=== PATIENT | female | born 1965 | race African-American/Black ===

== ENCOUNTER 2018-12-10 18:31 | Emergency (ER) | payer MEDICAID ==
[~2018-12-10] VITALS: Ht 165.1 cm; Wt 131.5 kg
[2018-12-10 18:49] VITALS: BP 109/69
[2018-12-10 19:44] LABS: Basophils # (auto) 0 uL; Basophils % (auto) 0.2 % (0.0-2.0); Eosinophils # (auto) 0.2 uL; Mean Corpuscular Volume 78.8 fL (80.0-100.0); Monocytes # (auto) 0.7 uL; Red Blood Cells 5.04 10^6/uL (4.0-5.20)
[2018-12-10 19:46] LABS: Eosinophils % (auto) 1.7 % (0.0-7.0); Hematocrit 39.8 % (36.0-46.0); Lymphocytes # (auto) 3.7 uL; Lymphocytes % (auto) 38.3 % (10.0-50.0); Mean Corpuscular Hemoglobin 25.8 pg (28.0-32.0); Mean Corpuscular Hgb Conc. 32.7 g/dL (32.0-36.0); Monocytes % (auto) 7.7 % (0.0-12.0); Neutrophils % (auto) 52.1 % (37.0-80.0); Nucleated Red Blood Cells % 0.3 %; Platelet Count (auto) 339 10^3/uL (140-450); Red Cell Distribution Width 15.2 % (11.8-14.3); White Blood Cell 9.6 10^3/uL (4.4-10.8)
[2018-12-10 19:58] LABS: Albumin 3.4 g/dL (3.4-5.0); Calcium 9.3 mg/dL (8.5-10.1); Potassium 3.2 mmol/L (3.5-5.1)
[2018-12-10 20:04] LABS: Bilirubin, Total 0.4 mg/dL (0.2-1.0); Total Protein 7.9 g/dL (6.4-8.2)
[2018-12-10] MEDS ORDERED: POTASSIUM CHL 20 Meq TABLET PO ONE (20:15)
== END 2018-12-10 23:47 | disposition left against medical advice (07) ==
LOC: ER 18:37
DX: R60.9 Edema, unspecified (principal); Z53.21 Procedure and treatment not carried out due to patient leaving prior to being seen by health care provider
CPT/HCPCS: 36415; 80053; 85025; 93970

== ENCOUNTER 2020-06-22 15:37 | Inpatient (IN) | payer MEDICAID ==
[~2020-06-22] VITALS: Ht 170.2 cm; Wt 132.9 kg
[2020-06-22] MEDS ORDERED: SODIUM CHLORIDE 0.9% 500 ML IV ONE (17:15)
[2020-06-22 18:34] LABS: Basophils # (auto) 0 10 ^3/uL (0-0.2); Basophils % (auto) 0.6 % (0.0-2.0); Eosinophils # (auto) 0.1 10 ^3/uL (0-0.8); Eosinophils % (auto) 0.9 % (0.0-7.0); Hematocrit 49.5 % (36.0-46.0); Hemoglobin 16.2 g/dL (12.2-16.2); Lymphocytes # (auto) 2.8 10 ^3/uL (0.4-5.4); Lymphocytes % (auto) 33.9 % (10.0-50.0); Mean Corpuscular Hemoglobin 27.1 pg (28.0-32.0); Mean Corpuscular Hgb Conc. 32.8 g/dL (32.0-36.0); Mean Corpuscular Volume 82.6 fL (80.0-100.0); Monocytes # (auto) 0.3 10 ^3/uL (0-1.3); Monocytes % (auto) 3.5 % (0.0-12.0); Neutrophils % (auto) 61.1 % (37.0-80.0); Nucleated Red Blood Cells % 0.2 %; Platelet Count (auto) 229 10^3/uL (140-450); Red Cell Distribution Width 16.8 % (11.8-14.3); White Blood Cell 8.1 10^3/uL (4.4-10.8)
[2020-06-22 18:51] LABS: Calcium 8.4 mg/dL (8.5-10.1)
[2020-06-22 18:56] LABS: BUN/Creatinine Ratio 7.9; Bilirubin, Total 0.5 mg/dL (0.2-1.0); Total Protein 7.9 g/dL (6.4-8.2)
[2020-06-22] MEDS ORDERED: MORPHINE SULF INJ 2 MG/ML SYRINGE 1ML IV PRN (20:00)
[2020-06-22] MEDS ORDERED: NITROGLYCERIN 0.4 MG SL TAB SL PRN (20:00)
[2020-06-22] MEDS ORDERED: DOCUSATE SOD 100 MG CAP PO PRN (20:00)
[2020-06-22] MEDS ORDERED: TEMAZEPAM 15 MG CAP PO PRN (20:00)
[2020-06-22] MEDS ORDERED: AZITHROMYCIN 500MG/ 250ML 250 ML IV ONE (20:15)
[2020-06-22] MEDS ORDERED: hydrALAZINE HCL 20 MG/ML VL IV PRN (20:15)
[2020-06-22] MEDS ORDERED: POTASSIUM CHL 20 Meq TABLET PO ONE (20:15)
[2020-06-22] MEDS ORDERED: HYDROcodone-ACET 5/325MG TAB PO PRN (20:15)
[2020-06-22] MEDS ORDERED: DEXTROSE (50%) 50ML SYRG IV PRN (20:15)
[2020-06-22] MEDS: SODIUM CHLORIDE 0.9% 1,000 ML IV SCH (20:45)
[2020-06-22] MEDS: AZITHROMYCIN 500MG/ 250ML 250 ML IV SCH (20:47)
[2020-06-22] MEDS: ATORVASTATIN 20 MG TAB PO SCH (22:00)
[2020-06-22] MEDS: InsuLIN REG 1unit/0.01ml Soln (100units/ml) SC SCH (22:00)
[2020-06-22] MEDS: ACCU-CHEK COMFORT CURVE STRIP VI SCH (22:00)
[2020-06-23 03:25] VITALS: BP 101/63
[2020-06-23] MEDS ORDERED: FLUT110A INH (05:41)
[2020-06-23] MEDS ORDERED: INSU1INJ19 SC (05:41)
[2020-06-23] MEDS ORDERED: CHOL20007 PO (05:41)
[2020-06-23] MEDS ORDERED: LOSA-69 PO (05:41)
[2020-06-23] MEDS ORDERED: ATOR20TA50 PO (05:41)
[2020-06-23] MEDS ORDERED: BALS750C6 PO (05:41)
[2020-06-23] MEDS ORDERED: GABA300C10 PO (05:41)
[2020-06-23] MEDS ORDERED: TRAM50TA2 PO (05:41)
[2020-06-23] MEDS ORDERED: HYDR25TA4 PO (05:41)
[2020-06-23] MEDS ORDERED: ALBU108A5 IN (05:41)
[2020-06-23] MEDS ORDERED: METO25TA5 PO (05:41)
[2020-06-23] MEDS ORDERED: MONT10TA34 PO (05:41)
[2020-06-23] MEDS: ACCU-CHEK COMFORT CURVE STRIP VI SCH ×4 (06:28→21:46)
[2020-06-23] MEDS: InsuLIN REG 1unit/0.01ml Soln (100units/ml) SC SCH ×4 (06:28→21:46)
[2020-06-23 08:34] LABS: Eosinophils # (auto) 0 10 ^3/uL (0-0.8); Mean Corpuscular Hgb Conc. 32.5 g/dL (32.0-36.0); Monocytes # (auto) 0.4 10 ^3/uL (0-1.3); Nucleated Red Blood Cells % 0.2 %; Red Cell Distribution Width 16.9 % (11.8-14.3); White Blood Cell 8.2 10^3/uL (4.4-10.8)
[2020-06-23 08:36] LABS: Basophils # (auto) 0 10 ^3/uL (0-0.2); Basophils % (auto) 0.5 % (0.0-2.0); Eosinophils % (auto) 0.2 % (0.0-7.0); Hematocrit 43.1 % (36.0-46.0); Lymphocytes # (auto) 2.3 10 ^3/uL (0.4-5.4); Lymphocytes % (auto) 27.9 % (10.0-50.0); Mean Corpuscular Hemoglobin 26.8 pg (28.0-32.0); Mean Corpuscular Volume 82.5 fL (80.0-100.0); Monocytes % (auto) 4.8 % (0.0-12.0); Neutrophils # (auto) 5.4 10 ^3/uL (1.6-8.6); Neutrophils % (auto) 66.6 % (37.0-80.0); Platelet Count (auto) 188 10^3/uL (140-450); Red Blood Cells 5.22 10^6/uL (4.0-5.20)
[2020-06-23 08:56] LABS: Albumin 2.4 g/dL (3.4-5.0); Calcium 7.5 mg/dL (8.5-10.1)
[2020-06-23 09:00] VITALS: BP 90/63
[2020-06-23 09:01] LABS: BUN/Creatinine Ratio 10.3; Bilirubin, Total 0.4 mg/dL (0.2-1.0); Total Protein 6.6 g/dL (6.4-8.2)
[2020-06-23 09:10] LABS: Potassium 2.8 mmol/L (3.5-5.1)
[2020-06-23] MEDS: LOSARTAN POTASSIUM 50 MG TAB PO SCH (10:00)
[2020-06-23] MEDS ORDERED: POTASSIUM CHL 20 Meq TABLET PO ONE (11:45)
[2020-06-23 13:00] VITALS: BP 105/71
[2020-06-23] MEDS ORDERED: POTASSIUM CHLORIDE 40 MEQ, LIDOCAINE 1% (LOCAL ANESTH.) 4 ML in SODIUM CHL 0.9% 250 ML IV ONE (13:00)
[2020-06-23] MEDS: SODIUM CHLORIDE 0.9% 1,000 ML IV SCH (14:06)
[2020-06-23] MEDS: ONDANSETRON HCL 4 MG/2 ML VIAL IV PRN ×2 (14:11→20:30)
[2020-06-23 17:00] VITALS: BP 95/61
[2020-06-23] MEDS: AZITHROMYCIN 500MG/ 250ML 250 ML IV SCH (20:30)
[2020-06-23 20:54] LABS: Urine Bacteria FEW /hpf (None Seen); Urine Blood 1+ /uL (Negative); Urine Hyaline Cast FEW /lpf (0 - 2); Urine Specific Gravity 1.018 (1.001-1.035); Urine WBC 30 /hpf (0 - 5)
[2020-06-23 21:00] VITALS: BP 107/66
[2020-06-23] MEDS: ATORVASTATIN 20 MG TAB PO SCH (21:46)
[2020-06-23] MEDS: ENOXAPARIN SOD 40 MG/0.4 ML SYRINGE SC SCH (21:46)
[2020-06-24] MEDS: ACCU-CHEK COMFORT CURVE STRIP VI SCH ×4 (06:52→21:56)
[2020-06-24] MEDS: InsuLIN REG 1unit/0.01ml Soln (100units/ml) SC SCH ×4 (06:55→21:56)
[2020-06-24 07:46] LABS: Basophils # (auto) 0 10 ^3/uL (0-0.2); Basophils % (auto) 0.2 % (0.0-2.0); Eosinophils # (auto) 0 10 ^3/uL (0-0.8); Eosinophils % (auto) 0.2 % (0.0-7.0); Hematocrit 42.1 % (36.0-46.0); Hemoglobin 13.8 g/dL (12.2-16.2); Lymphocytes # (auto) 2.6 10 ^3/uL (0.4-5.4); Lymphocytes % (auto) 26.5 % (10.0-50.0); Mean Corpuscular Hgb Conc. 32.8 g/dL (32.0-36.0); Mean Corpuscular Volume 82.3 fL (80.0-100.0); Monocytes # (auto) 0.5 10 ^3/uL (0-1.3); Monocytes % (auto) 5.2 % (0.0-12.0); Neutrophils # (auto) 6.8 10 ^3/uL (1.6-8.6); Neutrophils % (auto) 67.9 % (37.0-80.0); Nucleated Red Blood Cells % 0.3 %; Platelet Count (auto) 194 10^3/uL (140-450); Red Blood Cells 5.12 10^6/uL (4.0-5.20); Red Cell Distribution Width 17.5 % (11.8-14.3)
[2020-06-24 07:58] LABS: Magnesium 1.9 mg/dL (1.6-2.6)
[2020-06-24] MEDS ORDERED: ASPirin 325 MG TAB PO ONE (08:00)
[2020-06-24 08:08] LABS: Albumin 2.3 g/dL (3.4-5.0); BUN/Creatinine Ratio 11.7; Bilirubin, Total 0.5 mg/dL (0.2-1.0); CRP High Sensitivity 6.79 mg/dL (< 0.3); Calcium 7.7 mg/dL (8.5-10.1); Phosphorus 1.6 mg/dL (2.5-4.90)
[2020-06-24 08:19] LABS: Potassium 2.9 mmol/L (3.5-5.1)
[2020-06-24] MEDS ORDERED: ONDANSETRON HCL 4 MG/2 ML VIAL ONE (08:47)
[2020-06-24] MEDS: ONDANSETRON HCL 4 MG/2 ML VIAL IV PRN (08:55)
[2020-06-24 09:00] VITALS: BP 100/63
[2020-06-24] MEDS ORDERED: ENOXAPARIN SOD 40 MG/0.4 ML SYRINGE SC SCH (10:00)
[2020-06-24] MEDS: CHOLECALCIFEROL (VITD3) 2,000 UNIT CAP PO SCH ×2 (10:00→11:28)
[2020-06-24] MEDS: ASCORBIC ACID 500 MG TAB PO SCH ×2 (10:00→11:27)
[2020-06-24] MEDS: POTASSIUM CHL 20MEQ/100ML 100 ML IV SCH ×4 (11:15→20:49)
[2020-06-24] MEDS: ENOXAPARIN SOD 40 MG/0.4 ML SYRINGE SC SCH ×2 (11:27→22:00)
[2020-06-24] MEDS: PANTOPRAZOLE 40 MG TAB PO SCH (11:28)
[2020-06-24] MEDS: ZINC SULFATE 220mg CAP or TAB PO SCH (11:28)
[2020-06-24] MEDS: MAGNESIUM SULFATE 1GM/100ML 100 ML IV SCH ×2 (11:29→17:20)
[2020-06-24] MEDS: LOSARTAN POTASSIUM 50 MG TAB PO SCH (11:30)
[2020-06-24] MEDS: ALPRAZolam 0.5 MG TAB PO PRN (11:38)
[2020-06-24 13:00] VITALS: BP 104/57
[2020-06-24] MEDS ORDERED: POTASSIUM PHOSPHATE 26.4 MEQ in SODIUM CHL 0.9% 100 ML IV ONE ×2 (14:15→21:30)
[2020-06-24] MEDS ORDERED: MAGNESIUM SULFATE 1GM/100ML 100 ML IV SCH (16:15)
[2020-06-24 17:00] VITALS: BP 93/63
[2020-06-24 22:00] VITALS: BP 103/59
[2020-06-24] MEDS: ATORVASTATIN 20 MG TAB PO SCH (22:00)
[2020-06-24] MEDS: AZITHROMYCIN 500MG/ 250ML 250 ML IV SCH (22:12)
[2020-06-25] MEDS: POTASSIUM CHL 20MEQ/100ML 100 ML IV SCH ×3 (01:17→12:31)
[2020-06-25] MEDS: InsuLIN REG 1unit/0.01ml Soln (100units/ml) SC SCH ×4 (06:10→21:53)
[2020-06-25] MEDS: ACCU-CHEK COMFORT CURVE STRIP VI SCH ×4 (06:11→21:54)
[2020-06-25 06:23] VITALS: BP 107/53
[2020-06-25 08:00] VITALS: BP 102/64
[2020-06-25 08:23] LABS: Basophils # (auto) 0 10 ^3/uL (0-0.2); Basophils % (auto) 0.2 % (0.0-2.0); Eosinophils # (auto) 0 10 ^3/uL (0-0.8); Hematocrit 39.4 % (36.0-46.0); Lymphocytes # (auto) 1.9 10 ^3/uL (0.4-5.4); Lymphocytes % (auto) 17.9 % (10.0-50.0); Monocytes # (auto) 0.5 10 ^3/uL (0-1.3); Monocytes % (auto) 4.4 % (0.0-12.0); Neutrophils % (auto) 77.5 % (37.0-80.0); Nucleated Red Blood Cells % 0.1 %; Platelet Count (auto) 190 10^3/uL (140-450); Red Blood Cells 4.81 10^6/uL (4.0-5.20); Red Cell Distribution Width 16.8 % (11.8-14.3); White Blood Cell 10.4 10^3/uL (4.4-10.8)
[2020-06-25 09:05] LABS: Potassium 3.2 mmol/L (3.5-5.1)
[2020-06-25] MEDS: ZINC SULFATE 220mg CAP or TAB PO SCH (09:52)
[2020-06-25] MEDS: ASPirin 81 mg TAB PO SCH (09:52)
[2020-06-25] MEDS: PANTOPRAZOLE 40 MG TAB PO SCH (09:53)
[2020-06-25] MEDS: LOSARTAN POTASSIUM 50 MG TAB PO SCH (09:53)
[2020-06-25] MEDS: CHOLECALCIFEROL (VITD3) 2,000 UNIT CAP PO SCH (09:56)
[2020-06-25] MEDS: ASCORBIC ACID 500 MG TAB PO SCH (09:56)
[2020-06-25 10:00] LABS: Albumin 2.1 g/dL (3.4-5.0); BUN/Creatinine Ratio 12.4; Bilirubin, Total 0.5 mg/dL (0.2-1.0); Calcium 7.4 mg/dL (8.5-10.1); Magnesium 2.2 mg/dL (1.6-2.6); Phosphorus 2.2 mg/dL (2.5-4.90); Total Protein 5.6 g/dL (6.4-8.2)
[2020-06-25 10:01] LABS: CRP High Sensitivity 10.5 mg/dL (< 0.3)
[2020-06-25] MEDS: ENOXAPARIN SOD 40 MG/0.4 ML SYRINGE SC SCH ×2 (10:17→22:49)
[2020-06-25 12:00] VITALS: BP 102/54
[2020-06-25] MEDS ORDERED: POTASSIUM PHOSPHATE 22 MEQ in SODIUM CHL 0.9% 100 ML IV ONE (15:45)
[2020-06-25 17:00] VITALS: BP 102/63
[2020-06-25] MEDS: BUDESONIDE (INHALATION) 180 MCG IH IN SCH (22:00)
[2020-06-25] MEDS: MESALAMINE 400mg Delayed Release Cap PO SCH (22:00)
[2020-06-25] MEDS: ATORVASTATIN 20 MG TAB PO SCH (22:00)
[2020-06-25 22:05] VITALS: BP 95/56
[2020-06-25] MEDS ORDERED: FUROSEMIDE 40 MG/4 ML VIAL ONE (22:10)
[2020-06-25] MEDS: AZITHROMYCIN 500MG/ 250ML 250 ML IV SCH (22:47)
[2020-06-25] MEDS: FUROSEMIDE 40 MG/4 ML VIAL IV SCH (22:48)
[2020-06-26] MEDS: ACETAMINOPHEN 325 MG TAB PO PRN (04:20)
[2020-06-26 05:00] VITALS: BP 99/62
[2020-06-26] MEDS: MESALAMINE 400mg Delayed Release Cap PO SCH ×4 (06:13→22:44)
[2020-06-26] MEDS: InsuLIN REG 1unit/0.01ml Soln (100units/ml) SC SCH ×4 (06:17→22:58)
[2020-06-26] MEDS: ACCU-CHEK COMFORT CURVE STRIP VI SCH ×4 (06:32→22:00)
[2020-06-26 07:05] LABS: Basophils # (auto) 0 10 ^3/uL (0-0.2); Basophils % (auto) 0.3 % (0.0-2.0); Eosinophils # (auto) 0 10 ^3/uL (0-0.8); Eosinophils % (auto) 0.1 % (0.0-7.0); Hemoglobin 12.6 g/dL (12.2-16.2); Lymphocytes # (auto) 1.7 10 ^3/uL (0.4-5.4); Mean Corpuscular Hemoglobin 26.7 pg (28.0-32.0)
[2020-06-26 07:09] LABS: Hematocrit 38.8 % (36.0-46.0); Lymphocytes % (auto) 16.4 % (10.0-50.0); Mean Corpuscular Hgb Conc. 32.5 g/dL (32.0-36.0); Monocytes # (auto) 0.4 10 ^3/uL (0-1.3); Monocytes % (auto) 3.6 % (0.0-12.0); Neutrophils # (auto) 8.1 10 ^3/uL (1.6-8.6); Neutrophils % (auto) 79.6 % (37.0-80.0); Nucleated Red Blood Cells % 0.2 %; Platelet Count (auto) 211 10^3/uL (140-450); Red Blood Cells 4.73 10^6/uL (4.0-5.20); Red Cell Distribution Width 17.1 % (11.8-14.3); White Blood Cell 10.2 10^3/uL (4.4-10.8)
[2020-06-26] MEDS: BUDESONIDE (INHALATION) 180 MCG IH IN SCH ×2 (07:13→18:30)
[2020-06-26 07:34] LABS: Potassium 3.7 mmol/L (3.5-5.1)
[2020-06-26 07:41] LABS: Albumin 1.9 g/dL (3.4-5.0); BUN/Creatinine Ratio 13.3; Bilirubin, Total 0.5 mg/dL (0.2-1.0); Calcium 7.3 mg/dL (8.5-10.1); Magnesium 2.2 mg/dL (1.6-2.6); Total Protein 5.7 g/dL (6.4-8.2)
[2020-06-26 09:00] VITALS: BP 98/64
[2020-06-26] MEDS: ZINC SULFATE 220mg CAP or TAB PO SCH (09:28)
[2020-06-26] MEDS: CHOLECALCIFEROL (VITD3) 2,000 UNIT CAP PO SCH (09:28)
[2020-06-26] MEDS: FUROSEMIDE 40 MG/4 ML VIAL IV SCH (09:28)
[2020-06-26] MEDS: ASCORBIC ACID 500 MG TAB PO SCH (09:28)
[2020-06-26] MEDS: PANTOPRAZOLE 40 MG TAB PO SCH (09:28)
[2020-06-26] MEDS: ASPirin 81 mg TAB PO SCH (09:28)
[2020-06-26] MEDS: ENOXAPARIN SOD 40 MG/0.4 ML SYRINGE SC SCH (09:29)
[2020-06-26] MEDS: LOSARTAN POTASSIUM 50 MG TAB PO SCH (10:00)
[2020-06-26] MEDS ORDERED: ENOXAPARIN SOD 100 MG/1 ML SYRINGE SC ONE (12:00)
[2020-06-26 13:00] VITALS: BP 99/57
[2020-06-26] MEDS: ALBUTEROL SULF HFA 90MCG INH 200DOSE IN PRN (15:47)
[2020-06-26 17:00] VITALS: BP 101/52
[2020-06-26] MEDS ORDERED: DexAMETHasone SOD PHOS 10MG/1ML VIAL INJ IV ONE (17:00)
[2020-06-26] MEDS ORDERED: REMDESIVIR PER PHARMACY 0 ML IV SCH (17:15)
[2020-06-26] MEDS ORDERED: REMDESIVIR 200 MG in NS 210ml LOADING DOSE ADULT IV ONE (20:00)
[2020-06-26 22:00] VITALS: BP 115/87
[2020-06-26] MEDS ORDERED: ENOXAPARIN SOD 150 MG/1 ML SYRINGE SC SCH (22:00)
[2020-06-26] MEDS: AZITHROMYCIN 500MG/ 250ML 250 ML IV SCH (22:44)
[2020-06-26] MEDS: ATORVASTATIN 20 MG TAB PO SCH (22:44)
[2020-06-27] MEDS: ALBUTEROL SULF HFA 90MCG INH 200DOSE IN PRN ×3 (01:03→20:20)
[2020-06-27 05:00] VITALS: BP 97/51
[2020-06-27] MEDS: MESALAMINE 400mg Delayed Release Cap PO SCH ×3 (06:00→21:36)
[2020-06-27] MEDS: ACCU-CHEK COMFORT CURVE STRIP VI SCH ×5 (06:40→21:36)
[2020-06-27] MEDS: InsuLIN REG 1unit/0.01ml Soln (100units/ml) SC SCH ×4 (06:45→22:19)
[2020-06-27 07:19] LABS: Basophils # (auto) 0 10 ^3/uL (0-0.2); Basophils % (auto) 0.1 % (0.0-2.0); Eosinophils # (auto) 0 10 ^3/uL (0-0.8); Hemoglobin 13.1 g/dL (12.2-16.2); Lymphocytes # (auto) 1.2 10 ^3/uL (0.4-5.4); Mean Corpuscular Volume 82.7 fL (80.0-100.0); Monocytes # (auto) 0.6 10 ^3/uL (0-1.3); Monocytes % (auto) 4.4 % (0.0-12.0); Red Cell Distribution Width 17.1 % (11.8-14.3)
[2020-06-27 07:21] LABS: Hematocrit 40.9 % (36.0-46.0); Lymphocytes % (auto) 8.3 % (10.0-50.0); Mean Corpuscular Hemoglobin 26.5 pg (28.0-32.0); Neutrophils # (auto) 12.5 10 ^3/uL (1.6-8.6); Neutrophils % (auto) 87.2 % (37.0-80.0); Platelet Count (auto) 293 10^3/uL (140-450); Red Blood Cells 4.95 10^6/uL (4.0-5.20); White Blood Cell 14.3 10^3/uL (4.4-10.8)
[2020-06-27 07:34] LABS: Albumin 1.8 g/dL (3.4-5.0); Anion Gap 11 (5-15); Blood Urea Nitrogen 23 mg/dL (7-18); Calcium 7.7 mg/dL (8.5-10.1); Carbon Dioxide 19 mmol/L (21-32); Chloride 106 mmol/L (98-107); Glucose 217 mg/dL (74-106); Potassium 3.7 mmol/L (3.5-5.1); Sodium 136 mmol/L (136-145)
[2020-06-27 07:44] LABS: Alanine Aminotransferase 16 U/L (13-56); Alkaline Phosphatase 73 U/L (45-117); Aspartate Aminotransferase 38 U/L (15-37); Bilirubin, Total 0.4 mg/dL (0.2-1.0); GFR African American 49 mL/min; GFR Non-African American 40 mL/min
[2020-06-27 07:48] LABS: CRP High Sensitivity > 19 mg/dL (< 0.3)
[2020-06-27 08:00] VITALS: BP 103/64
[2020-06-27] MEDS: BUDESONIDE (INHALATION) 180 MCG IH IN SCH ×2 (08:01→22:24)
[2020-06-27] MEDS: LOSARTAN POTASSIUM 50 MG TAB PO SCH (10:00)
[2020-06-27] MEDS: ZINC SULFATE 220mg CAP or TAB PO SCH (10:00)
[2020-06-27] MEDS: DexAMETHasone SOD PHOS 10MG/1ML VIAL INJ IV SCH (11:00)
[2020-06-27] MEDS: PANTOPRAZOLE 40 MG TAB PO SCH (11:01)
[2020-06-27] MEDS: ASPirin 81 mg TAB PO SCH (11:01)
[2020-06-27] MEDS: ASCORBIC ACID 500 MG TAB PO SCH (11:01)
[2020-06-27] MEDS: FUROSEMIDE 40 MG/4 ML VIAL IV SCH (11:01)
[2020-06-27] MEDS: CHOLECALCIFEROL (VITD3) 2,000 UNIT CAP PO SCH (11:01)
[2020-06-27] MEDS: ENOXAPARIN SOD 100 MG/1 ML SYRINGE SC SCH ×2 (11:03→21:36)
[2020-06-27 12:00] VITALS: BP 96/73
[2020-06-27] MEDS: cefTRIAXone 1GM/50ML D5W 50 ML IV SCH (13:14)
[2020-06-27] MEDS: REMDESIVIR 100 MG in SODIUM CHL 0.9% 250 ML IV SCH (15:06)
[2020-06-27 17:00] VITALS: BP_SYST 116; BP_SYST 201; BP_DIAS 65; BP_DIAS 91
[2020-06-27] MEDS ORDERED: DIPHENOXYLATE W/ATROPINE 2.5 MG TAB PO PRN (17:30)
[2020-06-27] MEDS: AZITHROMYCIN 500MG/ 250ML 250 ML IV SCH (21:35)
[2020-06-27] MEDS: ATORVASTATIN 20 MG TAB PO SCH (21:36)
[2020-06-27 22:00] VITALS: BP 122/84
[2020-06-28] VITALS (9 sets, daily range): BP systolic 103–124; BP diastolic 59–97
[2020-06-28] MEDS ORDERED: dilTIAZem 25 MG/5 ML VIAL IV ONE ×2 (01:26→01:30)
[2020-06-28] MEDS ORDERED: AMIODARONE HCL 150 MG in D5W 5% 100 ML IV ONE (02:30)
[2020-06-28] MEDS ORDERED: AMIODARONE HCL (50 MG/ ML) 3 ML VIAL IV ONE (02:44)
[2020-06-28] MEDS ORDERED: AMIODARONE 450mg/250ml AE 250 ML IV SCH (02:45)
[2020-06-28] MEDS: MESALAMINE 400mg Delayed Release Cap PO SCH ×3 (06:00→23:08)
[2020-06-28 06:23] LABS: Basophils # (auto) 0 10 ^3/uL (0-0.2); Eosinophils # (auto) 0 10 ^3/uL (0-0.8); Monocytes # (auto) 1.2 10 ^3/uL (0-1.3); Monocytes % (auto) 7.9 % (0.0-12.0); Nucleated Red Blood Cells % 0.1 %
[2020-06-28 06:29] LABS: Lymphocytes # (auto) 1.6 10 ^3/uL (0.4-5.4); Lymphocytes % (auto) 10.4 % (10.0-50.0); Mean Corpuscular Hemoglobin 26.7 pg (28.0-32.0); Mean Corpuscular Hgb Conc. 32.6 g/dL (32.0-36.0); Mean Corpuscular Volume 81.8 fL (80.0-100.0); Neutrophils # (auto) 12.9 10 ^3/uL (1.6-8.6); Neutrophils % (auto) 81.7 % (37.0-80.0); Platelet Count (auto) 379 10^3/uL (140-450); Red Blood Cells 4.89 10^6/uL (4.0-5.20); Red Cell Distribution Width 17.3 % (11.8-14.3); White Blood Cell 15.8 10^3/uL (4.4-10.8)
[2020-06-28 06:36] LABS: Potassium 3.5 mmol/L (3.5-5.1)
[2020-06-28] MEDS: ALBUTEROL SULF HFA 90MCG INH 200DOSE IN PRN ×2 (06:39→20:46)
[2020-06-28] MEDS: BUDESONIDE (INHALATION) 180 MCG IH IN SCH ×2 (06:39→20:46)
[2020-06-28] MEDS: InsuLIN REG 1unit/0.01ml Soln (100units/ml) SC SCH ×4 (06:45→21:45)
[2020-06-28 06:51] LABS: Albumin 1.8 g/dL (3.4-5.0); BUN/Creatinine Ratio 23.1; Bilirubin, Total 0.4 mg/dL (0.2-1.0); Calcium 8.1 mg/dL (8.5-10.1); Total Protein 5.9 g/dL (6.4-8.2)
[2020-06-28] MEDS ORDERED: METOPROLOL TARTRATE 1MG/1ML-5ML VIAL IV ONE ×2 (08:15→09:30)
[2020-06-28] MEDS: cefTRIAXone 1GM/50ML D5W 50 ML IV SCH (09:00)
[2020-06-28] MEDS ORDERED: POTASSIUM CHL 20 Meq TABLET PO ONE (09:30)
[2020-06-28] MEDS: ASPirin 81 mg TAB PO SCH (09:35)
[2020-06-28] MEDS: PANTOPRAZOLE 40 MG TAB PO SCH (09:37)
[2020-06-28] MEDS: LOSARTAN POTASSIUM 50 MG TAB PO SCH (09:37)
[2020-06-28] MEDS: ASCORBIC ACID 500 MG TAB PO SCH (10:00)
[2020-06-28] MEDS: DexAMETHasone SOD PHOS 10MG/1ML VIAL INJ IV SCH (10:00)
[2020-06-28] MEDS: ENOXAPARIN SOD 150 MG/1 ML SYRINGE SC SCH ×2 (10:00→21:42)
[2020-06-28] MEDS: CHOLECALCIFEROL (VITD3) 2,000 UNIT CAP PO SCH (10:00)
[2020-06-28] MEDS: FUROSEMIDE 40 MG/4 ML VIAL IV SCH (10:00)
[2020-06-28] MEDS: ZINC SULFATE 220mg CAP or TAB PO SCH (10:00)
[2020-06-28] MEDS: CHOLESTYRAMINE 4 GM POWDER GT SCH (11:00)
[2020-06-28] MEDS: ACCU-CHEK COMFORT CURVE STRIP VI SCH ×3 (11:30→22:06)
[2020-06-28] MEDS ORDERED: DIGOXIN (250MCG/ML) 2 ML AMPULE ONE (11:41)
[2020-06-28] MEDS ORDERED: AMIODARONE 450mg/250ml AE 250 ML IV ONE (11:55)
[2020-06-28] MEDS: REMDESIVIR 100 MG in SODIUM CHL 0.9% 250 ML IV SCH (18:12)
[2020-06-28] MEDS ORDERED: DIGOXIN (250MCG/ML) 2 ML AMPULE IV ONE (18:15)
[2020-06-28] MEDS: METOPROLOL TARTRATE 25 MG TAB PO SCH ×2 (18:29→21:41)
[2020-06-28] MEDS: AZITHROMYCIN 500MG/ 250ML 250 ML IV SCH (20:43)
[2020-06-28] MEDS: ATORVASTATIN 20 MG TAB PO SCH (21:41)
[2020-06-29] MEDS ORDERED: DIGOXIN (250MCG/ML) 2 ML AMPULE IV ONE
[2020-06-29 00:22] VITALS: BP 109/50
[2020-06-29 02:12] VITALS: BP 111/80
[2020-06-29 05:00] VITALS: BP 126/93
[2020-06-29] MEDS: InsuLIN REG 1unit/0.01ml Soln (100units/ml) SC SCH ×4 (06:19→21:26)
[2020-06-29] MEDS: MESALAMINE 400mg Delayed Release Cap PO SCH ×3 (06:29→21:29)
[2020-06-29] MEDS: METOPROLOL TARTRATE 25 MG TAB PO SCH (06:30)
[2020-06-29] MEDS: ACCU-CHEK COMFORT CURVE STRIP VI SCH ×4 (06:30→21:29)
[2020-06-29] MEDS: ALBUTEROL SULF HFA 90MCG INH 200DOSE IN PRN ×2 (06:46→20:51)
[2020-06-29] MEDS: BUDESONIDE (INHALATION) 180 MCG IH IN SCH ×2 (06:46→20:51)
[2020-06-29 07:15] LABS: Basophils # (auto) 0 10 ^3/uL (0-0.2); Eosinophils # (auto) 0 10 ^3/uL (0-0.8); Lymphocytes # (auto) 1.2 10 ^3/uL (0.4-5.4); Mean Corpuscular Hemoglobin 26.8 pg (28.0-32.0); Monocytes # (auto) 1.2 10 ^3/uL (0-1.3); Nucleated Red Blood Cells % 0.1 %
[2020-06-29 07:18] LABS: Basophils % (auto) 0.1 % (0.0-2.0); Hematocrit 37.5 % (36.0-46.0); Hemoglobin 12.2 g/dL (12.2-16.2); Lymphocytes % (auto) 8.5 % (10.0-50.0); Mean Corpuscular Hgb Conc. 32.6 g/dL (32.0-36.0); Mean Corpuscular Volume 82.3 fL (80.0-100.0); Monocytes % (auto) 8.9 % (0.0-12.0); Neutrophils # (auto) 11.4 10 ^3/uL (1.6-8.6); Neutrophils % (auto) 82.5 % (37.0-80.0); Platelet Count (auto) 399 10^3/uL (140-450); Red Blood Cells 4.56 10^6/uL (4.0-5.20); Red Cell Distribution Width 16.6 % (11.8-14.3); White Blood Cell 13.8 10^3/uL (4.4-10.8)
[2020-06-29 07:22] LABS: Calcium 8.1 mg/dL (8.5-10.1); Potassium 3.8 mmol/L (3.5-5.1)
[2020-06-29 07:26] LABS: BUN/Creatinine Ratio 25.5; Bilirubin, Total 0.4 mg/dL (0.2-1.0); Phosphorus 2.9 mg/dL (2.5-4.90)
[2020-06-29] MEDS: METOPROLOL TARTRATE 50 MG TAB PO SCH ×3 (14:22→21:24)
[2020-06-29] MEDS: cefTRIAXone 1GM/50ML D5W 50 ML IV SCH (14:23)
[2020-06-29] MEDS: ASPirin 81 mg TAB PO SCH (14:24)
[2020-06-29] MEDS: DexAMETHasone SOD PHOS 10MG/1ML VIAL INJ IV SCH (14:24)
[2020-06-29] MEDS: ZINC SULFATE 220mg CAP or TAB PO SCH (14:25)
[2020-06-29] MEDS: LOSARTAN POTASSIUM 50 MG TAB PO SCH (14:26)
[2020-06-29] MEDS: DIGOXIN 0.125 MG TAB PO SCH (14:27)
[2020-06-29] MEDS: CHOLECALCIFEROL (VITD3) 2,000 UNIT CAP PO SCH (14:28)
[2020-06-29] MEDS: CHOLESTYRAMINE 4 GM POWDER GT SCH (14:28)
[2020-06-29] MEDS: ENOXAPARIN SOD 150 MG/1 ML SYRINGE SC SCH ×2 (14:28→21:29)
[2020-06-29] MEDS: ASCORBIC ACID 500 MG TAB PO SCH (14:28)
[2020-06-29] MEDS: PANTOPRAZOLE 40 MG TAB PO SCH (14:36)
[2020-06-29] MEDS: FUROSEMIDE 40 MG/4 ML VIAL IV SCH (15:16)
[2020-06-29] MEDS: REMDESIVIR 100 MG in SODIUM CHL 0.9% 250 ML IV SCH (18:18)
[2020-06-29] MEDS: ALPRAZolam 0.5 MG TAB PO PRN (21:23)
[2020-06-29] MEDS: AZITHROMYCIN 500MG/ 250ML 250 ML IV SCH (21:27)
[2020-06-29] MEDS: ATORVASTATIN 20 MG TAB PO SCH (21:29)
[2020-06-29 22:00] VITALS: BP 97/46
[2020-06-30 05:00] VITALS: BP 91/68
[2020-06-30] MEDS: MESALAMINE 400mg Delayed Release Cap PO SCH ×3 (06:00→21:46)
[2020-06-30 06:04] LABS: Basophils # (auto) 0 10 ^3/uL (0-0.2); Basophils % (auto) 0.1 % (0.0-2.0); Eosinophils # (auto) 0 10 ^3/uL (0-0.8); Lymphocytes # (auto) 1.1 10 ^3/uL (0.4-5.4); White Blood Cell 12.6 10^3/uL (4.4-10.8)
[2020-06-30 06:07] LABS: Hematocrit 40.4 % (36.0-46.0); Hemoglobin 13.2 g/dL (12.2-16.2); Mean Corpuscular Hemoglobin 26.9 pg (28.0-32.0); Mean Corpuscular Hgb Conc. 32.7 g/dL (32.0-36.0); Mean Corpuscular Volume 82.2 fL (80.0-100.0); Monocytes # (auto) 1.3 10 ^3/uL (0-1.3); Monocytes % (auto) 10.1 % (0.0-12.0); Neutrophils # (auto) 10.2 10 ^3/uL (1.6-8.6); Neutrophils % (auto) 80.8 % (37.0-80.0); Nucleated Red Blood Cells % 0.2 %; Platelet Count (auto) 463 10^3/uL (140-450); Red Blood Cells 4.92 10^6/uL (4.0-5.20); Red Cell Distribution Width 16.9 % (11.8-14.3)
[2020-06-30] MEDS: ACCU-CHEK COMFORT CURVE STRIP VI SCH ×4 (06:24→21:57)
[2020-06-30 06:28] LABS: Potassium 3.5 mmol/L (3.5-5.1)
[2020-06-30] MEDS: InsuLIN REG 1unit/0.01ml Soln (100units/ml) SC SCH ×4 (06:39→22:05)
[2020-06-30] MEDS: METOPROLOL TARTRATE 50 MG TAB PO SCH ×3 (06:41→21:58)
[2020-06-30 06:45] LABS: Albumin 2.2 g/dL (3.4-5.0); BUN/Creatinine Ratio 26.8; Bilirubin, Total 0.4 mg/dL (0.2-1.0); CRP High Sensitivity 2.58 mg/dL (< 0.3); Calcium 8.3 mg/dL (8.5-10.1); Total Protein 6.2 g/dL (6.4-8.2)
[2020-06-30 08:23] VITALS: BP 100/101
[2020-06-30] MEDS: BUDESONIDE (INHALATION) 180 MCG IH IN SCH (08:55)
[2020-06-30] MEDS: ALBUTEROL SULF HFA 90MCG INH 200DOSE IN PRN (08:55)
[2020-06-30] MEDS ORDERED: AMIODARONE 450mg/250ml AE 250 ML IV SCH ×3 (09:45→20:00)
[2020-06-30] MEDS ORDERED: POTASSIUM CHL 20 Meq TABLET PO ONE (09:45)
[2020-06-30] MEDS: cefTRIAXone 1GM/50ML D5W 50 ML IV SCH (09:53)
[2020-06-30] MEDS: ASPirin 81 mg TAB PO SCH (09:53)
[2020-06-30] MEDS: ZINC SULFATE 220mg CAP or TAB PO SCH (09:54)
[2020-06-30] MEDS: FUROSEMIDE 40 MG/4 ML VIAL IV SCH (10:00)
[2020-06-30] MEDS: LOSARTAN POTASSIUM 50 MG TAB PO SCH (10:00)
[2020-06-30] MEDS: DexAMETHasone SOD PHOS 10MG/1ML VIAL INJ IV SCH (10:14)
[2020-06-30] MEDS: DIGOXIN 0.125 MG TAB PO SCH (10:15)
[2020-06-30] MEDS: PANTOPRAZOLE 40 MG TAB PO SCH (10:16)
[2020-06-30] MEDS: CHOLECALCIFEROL (VITD3) 2,000 UNIT CAP PO SCH (10:16)
[2020-06-30] MEDS: ENOXAPARIN SOD 150 MG/1 ML SYRINGE SC SCH ×2 (10:16→21:58)
[2020-06-30] MEDS: ASCORBIC ACID 500 MG TAB PO SCH (10:16)
[2020-06-30] MEDS: CHOLESTYRAMINE 4 GM POWDER GT SCH (11:00)
[2020-06-30 12:30] VITALS: BP 99/71
[2020-06-30] MEDS: ACETAMINOPHEN 325 MG TAB PO PRN (14:27)
[2020-06-30] MEDS ORDERED: BISMUTH SUBSALICYLATE 262MG/15ml ORAL Susp PO PRN (17:15)
[2020-06-30] MEDS: REMDESIVIR 100 MG in SODIUM CHL 0.9% 250 ML IV SCH (18:15)
[2020-06-30 20:00] VITALS: BP 106/80
[2020-06-30] MEDS: AZITHROMYCIN 500MG/ 250ML 250 ML IV SCH (21:46)
[2020-06-30] MEDS: ATORVASTATIN 20 MG TAB PO SCH (21:58)
[2020-06-30 22:00] VITALS: BP 110/65
[2020-07-01] MEDS: ALBUTEROL SULF HFA 90MCG INH 200DOSE IN PRN ×4 (00:20→19:33)
[2020-07-01] MEDS: BUDESONIDE (INHALATION) 180 MCG IH IN SCH ×4 (00:20→19:33)
[2020-07-01 05:14] VITALS: BP 119/80
[2020-07-01] MEDS: MESALAMINE 400mg Delayed Release Cap PO SCH ×4 (06:00→22:00)
[2020-07-01] MEDS: METOPROLOL TARTRATE 50 MG TAB PO SCH ×3 (06:26→21:57)
[2020-07-01] MEDS: ACCU-CHEK COMFORT CURVE STRIP VI SCH ×4 (06:27→21:56)
[2020-07-01] MEDS: InsuLIN REG 1unit/0.01ml Soln (100units/ml) SC SCH ×4 (06:31→22:00)
[2020-07-01 09:00] VITALS: BP 110/71
[2020-07-01 10:23] LABS: Hemoglobin 12.6 g/dL (12.2-16.2); Red Cell Distribution Width 16.5 % (11.8-14.3)
[2020-07-01 10:26] LABS: Hematocrit 38.7 % (36.0-46.0); Mean Corpuscular Hemoglobin 26.8 pg (28.0-32.0); Mean Corpuscular Hgb Conc. 32.5 g/dL (32.0-36.0); Mean Corpuscular Volume 82.5 fL (80.0-100.0); Platelet Count (auto) 485 10^3/uL (140-450); Red Blood Cells 4.69 10^6/uL (4.0-5.20); White Blood Cell 11.9 10^3/uL (4.4-10.8)
[2020-07-01] MEDS: cefTRIAXone 1GM/50ML D5W 50 ML IV SCH (10:27)
[2020-07-01] MEDS: ZINC SULFATE 220mg CAP or TAB PO SCH (10:28)
[2020-07-01] MEDS: ASPirin 81 mg TAB PO SCH (10:28)
[2020-07-01] MEDS: DexAMETHasone SOD PHOS 10MG/1ML VIAL INJ IV SCH (10:28)
[2020-07-01] MEDS: FUROSEMIDE 40 MG/4 ML VIAL IV SCH (10:28)
[2020-07-01] MEDS: DIGOXIN 0.125 MG TAB PO SCH (10:29)
[2020-07-01] MEDS: LOSARTAN POTASSIUM 50 MG TAB PO SCH (10:29)
[2020-07-01] MEDS: CHOLESTYRAMINE 4 GM POWDER GT SCH (10:30)
[2020-07-01] MEDS: PANTOPRAZOLE 40 MG TAB PO SCH (10:30)
[2020-07-01] MEDS: ASCORBIC ACID 500 MG TAB PO SCH (10:30)
[2020-07-01] MEDS: CHOLECALCIFEROL (VITD3) 2,000 UNIT CAP PO SCH (10:30)
[2020-07-01] MEDS: ENOXAPARIN SOD 150 MG/1 ML SYRINGE SC SCH ×2 (10:30→21:56)
[2020-07-01] MEDS: ALPRAZolam 0.5 MG TAB PO PRN (10:31)
[2020-07-01] MEDS: AMIODARONE HCL 200 MG TAB PO SCH ×2 (10:31→21:57)
[2020-07-01 10:39] LABS: Calcium 8.5 mg/dL (8.5-10.1); Potassium 3.7 mmol/L (3.5-5.1)
[2020-07-01 10:44] LABS: Albumin 2.3 g/dL (3.4-5.0); BUN/Creatinine Ratio 24.8; Bilirubin, Total 0.5 mg/dL (0.2-1.0); Total Protein 6.3 g/dL (6.4-8.2)
[2020-07-01 11:19] LABS: Basophils % (manual) 0 (0.0-2.0); Blast Cells 0; Eosinophils % (manual) 0 (0-7); Metamyelocytes % 0; Promyelocytes % 0
[2020-07-01 12:40] LABS: Band Neutrophils % (manual) 2; Lymphocytes % (manual) 16 (10.0-50.0); Monocytes % (manual) 1 (0-12); Myelocytes % 1; Reactive Lymphocytes 1
[2020-07-01 13:00] VITALS: BP 92/54
[2020-07-01 17:00] VITALS: BP 89/67
[2020-07-01] MEDS: ATORVASTATIN 20 MG TAB PO SCH (21:56)
[2020-07-01 22:00] VITALS: BP 114/67
[2020-07-02 05:00] VITALS: BP 103/74
[2020-07-02] MEDS: MESALAMINE 400mg Delayed Release Cap PO SCH ×3 (05:31→22:00)
[2020-07-02] MEDS: ACCU-CHEK COMFORT CURVE STRIP VI SCH ×4 (07:09→22:07)
[2020-07-02] MEDS: InsuLIN REG 1unit/0.01ml Soln (100units/ml) SC SCH ×4 (07:10→22:59)
[2020-07-02] MEDS: ALBUTEROL SULF HFA 90MCG INH 200DOSE IN PRN ×2 (07:28→19:41)
[2020-07-02] MEDS: BUDESONIDE (INHALATION) 180 MCG IH IN SCH ×2 (07:28→19:39)
[2020-07-02 09:00] VITALS: BP 105/68
[2020-07-02] MEDS ORDERED: AZITHROMYCIN 250 MG TAB PO SCH (10:00)
[2020-07-02] MEDS: LOSARTAN POTASSIUM 50 MG TAB PO SCH (10:00)
[2020-07-02] MEDS: FUROSEMIDE 40 MG/4 ML VIAL IV SCH (10:00)
[2020-07-02] MEDS: cefTRIAXone 1GM/50ML D5W 50 ML IV SCH (10:35)
[2020-07-02] MEDS: DexAMETHasone SOD PHOS 10MG/1ML VIAL INJ IV SCH (10:35)
[2020-07-02] MEDS: ASPirin 81 mg TAB PO SCH (10:35)
[2020-07-02] MEDS: AMIODARONE HCL 200 MG TAB PO SCH ×2 (10:36→22:00)
[2020-07-02] MEDS: ZINC SULFATE 220mg CAP or TAB PO SCH (10:36)
[2020-07-02] MEDS: PANTOPRAZOLE 40 MG TAB PO SCH (10:37)
[2020-07-02] MEDS: ASCORBIC ACID 500 MG TAB PO SCH (10:37)
[2020-07-02] MEDS: METOPROLOL TARTRATE 25 MG TAB PO SCH ×2 (10:37→22:00)
[2020-07-02] MEDS: ENOXAPARIN SOD 150 MG/1 ML SYRINGE SC SCH ×2 (10:38→22:07)
[2020-07-02] MEDS: CHOLECALCIFEROL (VITD3) 2,000 UNIT CAP PO SCH (10:38)
[2020-07-02] MEDS: DOXYCYCLINE 100MG/250ML 250 ML IV SCH ×3 (11:13→22:06)
[2020-07-02] MEDS: CHOLESTYRAMINE 4 GM POWDER GT SCH (11:13)
[2020-07-02 13:00] VITALS: BP 100/60
[2020-07-02 17:00] VITALS: BP 120/66
[2020-07-02 20:00] VITALS: BP 137/73
[2020-07-02 22:00] VITALS: BP 137/73
[2020-07-02] MEDS: ATORVASTATIN 20 MG TAB PO SCH (22:06)
[2020-07-03] VITALS (7 sets, daily range): BP systolic 94–111; BP diastolic 55–73
[2020-07-03] MEDS: MESALAMINE 400mg Delayed Release Cap PO SCH ×4 (05:20→22:41)
[2020-07-03] MEDS: ACCU-CHEK COMFORT CURVE STRIP VI SCH ×4 (06:44→22:00)
[2020-07-03] MEDS: InsuLIN REG 1unit/0.01ml Soln (100units/ml) SC SCH ×4 (06:52→23:14)
[2020-07-03] MEDS: PANTOPRAZOLE 40 MG TAB PO SCH (09:31)
[2020-07-03] MEDS: ASCORBIC ACID 500 MG TAB PO SCH (09:31)
[2020-07-03] MEDS: ZINC SULFATE 220mg CAP or TAB PO SCH (09:31)
[2020-07-03] MEDS: AMIODARONE HCL 200 MG TAB PO SCH ×2 (09:31→22:40)
[2020-07-03] MEDS: ASPirin 81 mg TAB PO SCH (09:31)
[2020-07-03] MEDS: LOSARTAN POTASSIUM 50 MG TAB PO SCH (09:32)
[2020-07-03] MEDS: METOPROLOL TARTRATE 25 MG TAB PO SCH ×2 (09:32→22:00)
[2020-07-03] MEDS: ENOXAPARIN SOD 150 MG/1 ML SYRINGE SC SCH ×2 (09:33→22:41)
[2020-07-03] MEDS: DexAMETHasone SOD PHOS 10MG/1ML VIAL INJ IV SCH (09:33)
[2020-07-03] MEDS: FUROSEMIDE 40 MG/4 ML VIAL IV SCH (09:33)
[2020-07-03] MEDS: cefTRIAXone 1GM/50ML D5W 50 ML IV SCH (09:51)
[2020-07-03] MEDS: DOXYCYCLINE 100MG/250ML 250 ML IV SCH ×2 (09:52→22:40)
[2020-07-03] MEDS: CHOLECALCIFEROL (VITD3) 2,000 UNIT CAP PO SCH (10:00)
[2020-07-03] MEDS: BUDESONIDE (INHALATION) 180 MCG IH IN SCH ×2 (10:00→19:36)
[2020-07-03] MEDS: CHOLESTYRAMINE 4 GM POWDER GT SCH (11:47)
[2020-07-03] MEDS: ALBUTEROL SULF HFA 90MCG INH 200DOSE IN PRN ×2 (15:18→19:36)
[2020-07-03] MEDS ORDERED: InsuLIN REG 1unit/0.01ml Soln (100units/ml) IV ONE (17:45)
[2020-07-03] MEDS: ATORVASTATIN 20 MG TAB PO SCH (22:40)
[2020-07-04 05:00] VITALS: BP 107/68
[2020-07-04] MEDS: MESALAMINE 400mg Delayed Release Cap PO SCH ×3 (06:00→22:00)
[2020-07-04 06:23] LABS: Basophils # (auto) 0 10 ^3/uL (0-0.2); Eosinophils # (auto) 0 10 ^3/uL (0-0.8); Lymphocytes # (auto) 1.6 10 ^3/uL (0.4-5.4); Mean Corpuscular Volume 82.8 fL (80.0-100.0); Neutrophils # (auto) 8.9 10 ^3/uL (1.6-8.6); Nucleated Red Blood Cells % 0.1 %; White Blood Cell 11.5 10^3/uL (4.4-10.8)
[2020-07-04 06:25] LABS: Basophils % (auto) 0.2 % (0.0-2.0); Eosinophils % (auto) 0.4 % (0.0-7.0); Hematocrit 38.6 % (36.0-46.0); Hemoglobin 12.1 g/dL (12.2-16.2); Lymphocytes % (auto) 13.7 % (10.0-50.0); Mean Corpuscular Hgb Conc. 31.4 g/dL (32.0-36.0); Monocytes # (auto) 0.9 10 ^3/uL (0-1.3); Monocytes % (auto) 8.2 % (0.0-12.0); Neutrophils % (auto) 77.5 % (37.0-80.0); Platelet Count (auto) 442 10^3/uL (140-450); Red Blood Cells 4.66 10^6/uL (4.0-5.20); Red Cell Distribution Width 16.5 % (11.8-14.3)
[2020-07-04] MEDS: ALBUTEROL SULF HFA 90MCG INH 200DOSE IN PRN ×2 (06:25→21:15)
[2020-07-04] MEDS: BUDESONIDE (INHALATION) 180 MCG IH IN SCH ×2 (06:25→21:15)
[2020-07-04] MEDS: ACCU-CHEK COMFORT CURVE STRIP VI SCH ×4 (06:35→22:09)
[2020-07-04] MEDS: InsuLIN REG 1unit/0.01ml Soln (100units/ml) SC SCH ×3 (06:38→17:00)
[2020-07-04 07:14] LABS: Albumin 2.3 g/dL (3.4-5.0); BUN/Creatinine Ratio 23.8; Bilirubin, Total 0.5 mg/dL (0.2-1.0); CRP High Sensitivity 1.05 mg/dL (< 0.3); Calcium 8.7 mg/dL (8.5-10.1)
[2020-07-04 08:00] VITALS: BP 96/60
[2020-07-04 08:10] LABS: Potassium 2.9 mmol/L (3.5-5.1)
[2020-07-04] MEDS: cefTRIAXone 1GM/50ML D5W 50 ML IV SCH (09:16)
[2020-07-04 09:51] LABS: Magnesium 2.3 mg/dL (1.6-2.6); Phosphorus 2.9 mg/dL (2.5-4.90)
[2020-07-04] MEDS: LOSARTAN POTASSIUM 50 MG TAB PO SCH (10:00)
[2020-07-04] MEDS: METOPROLOL TARTRATE 25 MG TAB PO SCH ×2 (10:00→21:55)
[2020-07-04 12:00] VITALS: BP 112/62
[2020-07-04] MEDS: DexAMETHasone SOD PHOS 10MG/1ML VIAL INJ IV SCH (15:10)
[2020-07-04] MEDS: DOXYCYCLINE 100MG/250ML 250 ML IV SCH (15:11)
[2020-07-04] MEDS: FUROSEMIDE 40 MG/4 ML VIAL IV SCH (15:11)
[2020-07-04] MEDS: ZINC SULFATE 220mg CAP or TAB PO SCH (15:12)
[2020-07-04] MEDS: PANTOPRAZOLE 40 MG TAB PO SCH (15:12)
[2020-07-04] MEDS: AMIODARONE HCL 200 MG TAB PO SCH (15:12)
[2020-07-04] MEDS: ASCORBIC ACID 500 MG TAB PO SCH (15:12)
[2020-07-04] MEDS: ASPirin 81 mg TAB PO SCH (15:12)
[2020-07-04] MEDS: CHOLECALCIFEROL (VITD3) 2,000 UNIT CAP PO SCH (15:12)
[2020-07-04] MEDS: CHOLESTYRAMINE 4 GM POWDER GT SCH (15:13)
[2020-07-04] MEDS: ENOXAPARIN SOD 150 MG/1 ML SYRINGE SC SCH (15:13)
[2020-07-04 17:00] VITALS: BP 111/69
[2020-07-04] MEDS ORDERED: POTASSIUM CHL 20MEQ/100ML 300 ML IV ONE (21:26)
[2020-07-04] MEDS: POTASSIUM CHL 20MEQ/100ML 100 ML IV SCH (21:36)
[2020-07-04] MEDS: ATORVASTATIN 20 MG TAB PO SCH (21:54)
[2020-07-04] MEDS: APIXABAN 5 MG TAB PO SCH (21:55)
[2020-07-04 22:00] VITALS: BP 112/74
[2020-07-04] MEDS ORDERED: AMIODARONE HCL 200 MG TAB PO SCH (22:00)
[2020-07-05] MEDS: POTASSIUM CHL 20MEQ/100ML 100 ML IV SCH ×2 (01:18→04:56)
[2020-07-05] MEDS: DOXYCYCLINE 100MG/250ML 250 ML IV SCH ×2 (01:32→09:01)
[2020-07-05] MEDS: guaiFENesin-DM 100/10mg/5ml SYR PO PRN ×2 (03:26→08:59)
[2020-07-05] MEDS: MESALAMINE 400mg Delayed Release Cap PO SCH ×2 (06:00→14:35)
[2020-07-05] MEDS: ACCU-CHEK COMFORT CURVE STRIP VI SCH ×3 (06:58→17:25)
[2020-07-05] MEDS: InsuLIN REG 1unit/0.01ml Soln (100units/ml) SC SCH ×3 (07:01→17:26)
[2020-07-05 07:36] LABS: Basophils # (auto) 0.1 10 ^3/uL (0-0.2); Basophils % (auto) 0.7 % (0.0-2.0); Hemoglobin 11.7 g/dL (12.2-16.2); Lymphocytes # (auto) 1.6 10 ^3/uL (0.4-5.4)
[2020-07-05 07:37] LABS: Eosinophils # (auto) 0.1 10 ^3/uL (0-0.8); Hematocrit 35.8 % (36.0-46.0); Lymphocytes % (auto) 13.8 % (10.0-50.0); Mean Corpuscular Hemoglobin 26.9 pg (28.0-32.0); Mean Corpuscular Hgb Conc. 32.7 g/dL (32.0-36.0); Mean Corpuscular Volume 82.2 fL (80.0-100.0); Monocytes # (auto) 0.9 10 ^3/uL (0-1.3); Monocytes % (auto) 7.7 % (0.0-12.0); Neutrophils # (auto) 9.2 10 ^3/uL (1.6-8.6); Neutrophils % (auto) 76.8 % (37.0-80.0); Nucleated Red Blood Cells % 0.3 %; Platelet Count (auto) 391 10^3/uL (140-450); Red Blood Cells 4.35 10^6/uL (4.0-5.20); Red Cell Distribution Width 16.2 % (11.8-14.3); White Blood Cell 11.9 10^3/uL (4.4-10.8)
[2020-07-05 08:11] LABS: Potassium 3.6 mmol/L (3.5-5.1)
[2020-07-05 08:18] LABS: Albumin 2.2 g/dL (3.4-5.0); BUN/Creatinine Ratio 23.5; Bilirubin, Total 0.7 mg/dL (0.2-1.0); Calcium 8.3 mg/dL (8.5-10.1)
[2020-07-05 08:40] VITALS: BP 115/72
[2020-07-05] MEDS: cefTRIAXone 1GM/50ML D5W 50 ML IV SCH (08:58)
[2020-07-05] MEDS: APIXABAN 5 MG TAB PO SCH (08:59)
[2020-07-05] MEDS: ZINC SULFATE 220mg CAP or TAB PO SCH (08:59)
[2020-07-05] MEDS: ASPirin 81 mg TAB PO SCH (08:59)
[2020-07-05] MEDS: PANTOPRAZOLE 40 MG TAB PO SCH (08:59)
[2020-07-05 09:00] VITALS: BP 115/72
[2020-07-05] MEDS: ASCORBIC ACID 500 MG TAB PO SCH (09:00)
[2020-07-05] MEDS: LOSARTAN POTASSIUM 50 MG TAB PO SCH (09:00)
[2020-07-05] MEDS: METOPROLOL TARTRATE 25 MG TAB PO SCH (09:00)
[2020-07-05] MEDS: FUROSEMIDE 40 MG/4 ML VIAL IV SCH (09:01)
[2020-07-05] MEDS: DexAMETHasone SOD PHOS 10MG/1ML VIAL INJ IV SCH (09:01)
[2020-07-05] MEDS: CHOLECALCIFEROL (VITD3) 2,000 UNIT CAP PO SCH (09:01)
[2020-07-05] MEDS: ACETAMINOPHEN 325 MG TAB PO PRN (09:23)
[2020-07-05] MEDS ORDERED: CHOLESTYRAMINE 4 GM POWDER PO SCH (11:00)
[2020-07-05 12:00] VITALS: BP 134/67
[2020-07-05] MEDS: BUDESONIDE (INHALATION) 180 MCG IH IN SCH (12:57)
[2020-07-05] MEDS: ALBUTEROL SULF HFA 90MCG INH 200DOSE IN PRN (14:52)
[2020-07-05 16:40] VITALS: BP 115/59
[2020-07-05 17:00] VITALS: BP 137/77
== END 2020-07-05 18:15 | DRG 137 ==
LOC: ER 15:37 → EDBD 15:37 → OVERFLOW 15:38 → TELE-CENTR 06-23 03:23 → TELE-WESTW 06-28 18:11
PROVIDERS: ADMIT Nurse Practitioner; ATTEND Nurse Practitioner
PROC: 05HB33Z Insertion of Infusion Device into Right Basilic Vein, Percutaneous Approach (ICD-10-PCS; principal; 2020-06-22)
PROC: XW033E5 Introduction of Remdesivir Anti-infective into Peripheral Vein, Percutaneous Approach, New Technology Group 5 (ICD-10-PCS; 2020-06-27)
PROC: XW13325 Transfusion of Convalescent Plasma (Nonautologous) into Peripheral Vein, Percutaneous Approach, New Technology Group 5 (ICD-10-PCS; 2020-06-29)
PROC: B54MZZA Ultrasonography of Right Upper Extremity Veins, Guidance (ICD-10-PCS; 2020-06-29)
DX: U07.1 COVID-19 (principal); J12.89 Other viral pneumonia; E66.01 Morbid (severe) obesity due to excess calories; K51.90 Ulcerative colitis, unspecified, without complications; E44.1 Mild protein-calorie malnutrition; E11.40 Type 2 diabetes mellitus with diabetic neuropathy, unspecified; I48.20 Chronic atrial fibrillation, unspecified; E11.22 Type 2 diabetes mellitus with diabetic chronic kidney disease; Z68.41 Body mass index [BMI] 40.0-44.9, adult; R06.03 Acute respiratory distress; I12.9 Hypertensive chronic kidney disease with stage 1 through stage 4 chronic kidney disease, or unspecified chronic kidney disease; N18.9 Chronic kidney disease, unspecified; E78.5 Hyperlipidemia, unspecified; E87.6 Hypokalemia; K59.00 Constipation, unspecified; R19.7 Diarrhea, unspecified; R32 Unspecified urinary incontinence; N39.0 Urinary tract infection, site not specified; Z79.01 Long term (current) use of anticoagulants; Z80.49 Family history of malignant neoplasm of other genital organs; Z82.3 Family history of stroke; Z82.49 Family history of ischemic heart disease and other diseases of the circulatory system; Z83.3 Family history of diabetes mellitus
CPT/HCPCS: 36415; 36600; 71045; 71250; 80053; 80061; 81001; 82728; 82805; 82962; 83036; 83615; 83735; 83880; 84100; 84443; 84484; 85007; 85025; 85027; 85379; 86141; 86850; 86900; 86901; 87426; 87493; 93005; 93306; 93886; 93970; 94640; 97116; 97163; 97530; G0378; J0696; J1100; J1815; J2001; J2405; J3480; J3490; J7060

== ENCOUNTER 2020-07-12 22:21 | Inpatient (IN) | payer MEDICAID ==
[~2020-07-12] VITALS: Ht 167.6 cm; Wt 120.6 kg
[~2020-07-12 22:21] MED LIST: ALBU108A5 IN; ATOR20TA50 PO; BALS750C6 PO; CHOL20007 PO; FLUT110A INH; GABA300C10 PO; HYDR25TA4 PO; INSU1INJ19 SC; LOSA-69 PO; METO25TA5 PO; MONT10TA34 PO; TRAM50TA2 PO
[2020-07-13] MEDS ORDERED: DexAMETHasone SOD PHOS 10MG/1ML VIAL INJ IV ONE (00:30)
[2020-07-13] MEDS ORDERED: AZITHROMYCIN 500MG/ 250ML 250 ML IV ONE (00:30)
[2020-07-13 00:41] LABS: Hematocrit 38.1 % (36.0-46.0); Hemoglobin 12.4 g/dL (12.2-16.2); Mean Corpuscular Hemoglobin 27.5 pg (28.0-32.0); Mean Corpuscular Hgb Conc. 32.6 g/dL (32.0-36.0); Mean Corpuscular Volume 84.3 fL (80.0-100.0); Platelet Count (auto) 382 10^3/uL (140-450); Red Blood Cells 4.52 10^6/uL (4.0-5.20)
[2020-07-13 00:45] LABS: Band Neutrophils % (manual) 0; Basophils % (manual) 0 (0.0-2.0); Blast Cells 0; Eosinophils % (manual) 0 (0-7); Metamyelocytes % 0; Myelocytes % 0; Promyelocytes % 0; Reactive Lymphocytes 0
[2020-07-13 01:04] LABS: Albumin 2.1 g/dL (3.4-5.0); BUN/Creatinine Ratio 8.3; Calcium 9.1 mg/dL (8.5-10.1); Potassium 4.3 mmol/L (3.5-5.1)
[2020-07-13 01:06] LABS: Lactic Acid w/Reflex 4.4 mmol/L (0.4-2.0)
[2020-07-13 01:15] LABS: Bilirubin, Total 1.1 mg/dL (0.2-1.0); Total Protein 7.6 g/dL (6.4-8.2)
[2020-07-13 02:18] VITALS: BP 111/80
[2020-07-13 02:51] LABS: INR 1.24 (0.9-1.15); Partial Thromboplastin Time 27.1 sec (23.0-31.2)
[2020-07-13] MEDS ORDERED: ENOXAPARIN SOD 100 MG/1 ML SYRINGE SC ONE (03:45)
[2020-07-13] MEDS ORDERED: MORPHINE SULF INJ 2 MG/ML SYRINGE 1ML IV PRN (03:45)
[2020-07-13] MEDS ORDERED: ONDANSETRON HCL 4 MG/2 ML VIAL IV ONE (03:45)
[2020-07-13] MEDS ORDERED: NITROGLYCERIN 0.4 MG SL TAB SL PRN (03:45)
[2020-07-13] MEDS ORDERED: MORPHINE SULF INJ 2 MG/ML SYRINGE 1ML IV ONE (03:45)
[2020-07-13] MEDS ORDERED: ALBUTEROL SULF HFA 90MCG INH 200DOSE IN SCH (03:45)
[2020-07-13] MEDS ORDERED: traMADol HCL 50 MG TAB PO PRN (03:45)
[2020-07-13 04:07] LABS: Lymphocytes % (manual) 12 (10.0-50.0); Monocytes % (manual) 3 (0-12)
[2020-07-13] MEDS: PIPERACILLIN-TAZOB 3.375GM 100 ML IV SCH ×2 (06:51→13:12)
[2020-07-13 06:57] VITALS: BP 118/90
[2020-07-13 07:16] LABS: Hematocrit 36.2 % (36.0-46.0); Hemoglobin 11.7 g/dL (12.2-16.2); Mean Corpuscular Hemoglobin 27.5 pg (28.0-32.0); Mean Corpuscular Hgb Conc. 32.3 g/dL (32.0-36.0); Platelet Count (auto) 351 10^3/uL (140-450); Red Blood Cells 4.26 10^6/uL (4.0-5.20); Red Cell Distribution Width 17.2 % (11.8-14.3); White Blood Cell 26.1 10^3/uL (4.4-10.8)
[2020-07-13 07:28] LABS: Basophils % (manual) 0 (0.0-2.0); Blast Cells 0; Eosinophils % (manual) 0 (0-7); Metamyelocytes % 0; Myelocytes % 0; Promyelocytes % 0; Reactive Lymphocytes 0
[2020-07-13 08:16] LABS: Band Neutrophils % (manual) 3; Lymphocytes % (manual) 2 (10.0-50.0); Monocytes % (manual) 1 (0-12)
[2020-07-13] MEDS: MORPHINE SULF INJ 2 MG/ML SYRINGE 1ML IV PRN (08:18)
[2020-07-13] MEDS: CHOLECALCIFEROL (VITD3) 2,000 UNIT CAP PO SCH (10:00)
[2020-07-13] MEDS ORDERED: PATIENTS OWN MEDICATION (Cholecalciferol (Vitamin D3) 1 TAB) PO SCH (10:00)
[2020-07-13] MEDS: BALSALAZIDE DISODIUM PO SCH (10:00)
[2020-07-13] MEDS ORDERED: INSULIN GLARGINE 30 UNIT SC SCH (10:00)
[2020-07-13] MEDS: FLUTICASONE PROPIONATE 110 MCG IN SCH ×2 (10:00→21:54)
[2020-07-13] MEDS ORDERED: SODIUM BICARBONATE 8.4 % INJ 50ML VIAL IV ONE ×2 (10:55→15:15)
[2020-07-13] MEDS: SODIUM BICARBONATE 50ML VIAL 150 ML in SOD CHL 0.45% 1,000 ML IV SCH ×2 (11:19→21:55)
[2020-07-13] MEDS: DexAMETHasone SOD PHOS 10MG/1ML VIAL INJ IV SCH (11:36)
[2020-07-13] MEDS: LOSARTAN POTASSIUM 50 MG TAB PO SCH (11:37)
[2020-07-13] MEDS: HCTZ 25 MG TAB PO SCH (11:38)
[2020-07-13] MEDS: GABAPENTIN 300 MG CAP PO SCH ×2 (11:38→21:55)
[2020-07-13] MEDS: ATORVASTATIN 20 MG TAB PO SCH (11:38)
[2020-07-13] MEDS: METOPROLOL TARTRATE 25 MG TAB PO SCH ×2 (11:38→21:54)
[2020-07-13] MEDS: MONTELUKAST SODIUM 10 MG TAB PO SCH (11:39)
[2020-07-13] MEDS: ENOXAPARIN SOD 100 MG/1 ML SYRINGE SC SCH ×2 (11:39→21:55)
[2020-07-13 12:04] LABS: Calcium 8.7 mg/dL (8.5-10.1); Potassium 5.5 mmol/L (3.5-5.1)
[2020-07-13 12:07] LABS: BUN/Creatinine Ratio 7.3; Bilirubin, Total 0.9 mg/dL (0.2-1.0); Total Protein 7.6 g/dL (6.4-8.2)
[2020-07-13] MEDS: INSULIN LANTUS (GLARGINE) 1 /0.01ml (100units/ml) SC SCH (12:55)
[2020-07-13] MEDS ORDERED: LORazepam 2MG/ML-1ML VIAL IV ONE (15:45)
[2020-07-13 18:50] VITALS: BP 143/88
[2020-07-13] MEDS: LORazepam 2MG/ML-1ML VIAL IV PRN (20:27)
[2020-07-13 22:15] VITALS: BP 135/91
[2020-07-14] MEDS: PIPERACILLIN-TAZOB 3.375GM 100 ML IV SCH ×5 (01:44→23:48)
[2020-07-14 02:15] VITALS: BP 116/80
[2020-07-14] MEDS: LORazepam 2MG/ML-1ML VIAL IV PRN (05:53)
[2020-07-14 06:45] VITALS: BP 133/97
[2020-07-14] MEDS: DexAMETHasone SOD PHOS 10MG/1ML VIAL INJ IV SCH (08:14)
[2020-07-14] MEDS: MORPHINE SULF INJ 2 MG/ML SYRINGE 1ML IV PRN (08:33)
[2020-07-14] MEDS: CHOLECALCIFEROL (VITD3) 2,000 UNIT CAP PO SCH (10:00)
[2020-07-14] MEDS: MONTELUKAST SODIUM 10 MG TAB PO SCH (10:00)
[2020-07-14] MEDS: BALSALAZIDE DISODIUM PO SCH (10:00)
[2020-07-14] MEDS: HCTZ 25 MG TAB PO SCH (10:00)
[2020-07-14] MEDS: ATORVASTATIN 20 MG TAB PO SCH (10:00)
[2020-07-14] MEDS: LOSARTAN POTASSIUM 50 MG TAB PO SCH (10:00)
[2020-07-14] MEDS: INSULIN LANTUS (GLARGINE) 1 /0.01ml (100units/ml) SC SCH (10:00)
[2020-07-14] MEDS: METOPROLOL TARTRATE 25 MG TAB PO SCH ×2 (10:00→22:00)
[2020-07-14] MEDS: FLUTICASONE PROPIONATE 110 MCG IN SCH ×2 (10:00→22:00)
[2020-07-14] MEDS: GABAPENTIN 300 MG CAP PO SCH ×2 (10:00→22:00)
[2020-07-14] MEDS: PROPOFOL 100 ML IV SCH (11:00)
[2020-07-14] MEDS ORDERED: ROCURONIUM 10MG/ML 10ML VIAL IV ONE (11:00)
[2020-07-14] MEDS ORDERED: ETOMIDATE (2MG/ML) 20ML VIAL IV ONE (11:00)
[2020-07-14 12:00] VITALS: BP 136/96
[2020-07-14] MEDS: fentaNYL Drip 2500mCg/250mlNS 250 ML IV SCH (12:20)
[2020-07-14] MEDS: MIDAZOLAM DRIP 50 mg/50mL 50 ML IV SCH ×2 (12:22→16:17)
[2020-07-14] MEDS: NOREPINEPHRINE 8 MG/250ML KIT 250 ML IV SCH (13:00)
[2020-07-14] MEDS: ENOXAPARIN SOD 100 MG/1 ML SYRINGE SC SCH ×2 (14:14→22:00)
[2020-07-14] MEDS: SODIUM BICARBONATE 50ML VIAL 150 ML in SOD CHL 0.45% 1,000 ML IV SCH ×2 (15:00→21:45)
[2020-07-14 19:27] VITALS: BP 106/70
[2020-07-14 23:50] VITALS: BP 106/70
[2020-07-15] VITALS (70 sets, daily range): BP systolic 93–139; BP diastolic 55–87
[2020-07-15] MEDS: PIPERACILLIN-TAZOB 3.375GM 100 ML IV SCH ×3 (07:37→18:00)
[2020-07-15] MEDS ORDERED: DEXTROSE (50%) 50ML SYRG IV PRN (08:00)
[2020-07-15] MEDS: SODIUM BICARBONATE 50ML VIAL 150 ML in SOD CHL 0.45% 1,000 ML IV SCH ×2 (09:15→20:45)
[2020-07-15] MEDS: FLUTICASONE PROPIONATE 110 MCG IN SCH ×2 (10:00→22:00)
[2020-07-15] MEDS: BALSALAZIDE DISODIUM PO SCH (10:00)
[2020-07-15] MEDS: LOSARTAN POTASSIUM 50 MG TAB PO SCH (10:00)
[2020-07-15] MEDS: HCTZ 25 MG TAB PO SCH (10:00)
[2020-07-15] MEDS: METOPROLOL TARTRATE 25 MG TAB PO SCH ×2 (10:00→22:00)
[2020-07-15] MEDS: MIDAZOLAM DRIP 50 mg/50mL 50 ML IV SCH (10:51)
[2020-07-15] MEDS: DexAMETHasone SOD PHOS 10MG/1ML VIAL INJ IV SCH (10:53)
[2020-07-15] MEDS: ATORVASTATIN 20 MG TAB PO SCH (10:55)
[2020-07-15] MEDS: GABAPENTIN 300 MG CAP PO SCH ×2 (10:56→22:00)
[2020-07-15] MEDS: MONTELUKAST SODIUM 10 MG TAB PO SCH (10:57)
[2020-07-15] MEDS: CHOLECALCIFEROL (VITD3) 2,000 UNIT CAP PO SCH (10:57)
[2020-07-15] MEDS: ENOXAPARIN SOD 100 MG/1 ML SYRINGE SC SCH ×2 (10:58→22:00)
[2020-07-15] MEDS: INSULIN LANTUS (GLARGINE) 1 /0.01ml (100units/ml) SC SCH (10:59)
[2020-07-15] MEDS: fentaNYL Drip 2500mCg/250mlNS 250 ML IV SCH (11:00)
[2020-07-15] MEDS: PROPOFOL 100 ML IV SCH ×2 (11:00→18:00)
[2020-07-15] MEDS: InsuLIN REG 1unit/0.01ml Soln (100units/ml) SC SCH ×2 (12:00→17:23)
[2020-07-15] MEDS: ACCU-CHEK COMFORT CURVE STRIP VI SCH ×2 (12:00→17:21)
[2020-07-15 12:28] LABS: Basophils # (auto) 0.1 10 ^3/uL (0-0.2); Basophils % (auto) 0.5 % (0.0-2.0); Eosinophils # (auto) 0 10 ^3/uL (0-0.8); Hematocrit 27.7 % (36.0-46.0); Hemoglobin 9.1 g/dL (12.2-16.2); Lymphocytes # (auto) 0.8 10 ^3/uL (0.4-5.4); Mean Corpuscular Hemoglobin 27.5 pg (28.0-32.0); Mean Corpuscular Hgb Conc. 32.9 g/dL (32.0-36.0); Mean Corpuscular Volume 83.5 fL (80.0-100.0); Monocytes # (auto) 0.6 10 ^3/uL (0-1.3); Neutrophils # (auto) 13.9 10 ^3/uL (1.6-8.6); Neutrophils % (auto) 90.5 % (37.0-80.0); Nucleated Red Blood Cells % 0.2 %; Platelet Count (auto) 323 10^3/uL (140-450); Red Blood Cells 3.32 10^6/uL (4.0-5.20); Red Cell Distribution Width 17.2 % (11.8-14.3); White Blood Cell 15.3 10^3/uL (4.4-10.8)
[2020-07-15] MEDS: NOREPINEPHRINE 8 MG/250ML KIT 250 ML IV SCH (12:30)
[2020-07-15 12:44] LABS: Albumin 1.8 g/dL (3.4-5.0); Calcium 8.2 mg/dL (8.5-10.1); Potassium 4.6 mmol/L (3.5-5.1)
[2020-07-15 12:48] LABS: Bilirubin, Total 0.4 mg/dL (0.2-1.0); Total Protein 6.4 g/dL (6.4-8.2)
[2020-07-16] VITALS (93 sets, daily range): BP systolic 78–194; BP diastolic 41–109
[2020-07-16] MEDS: ACCU-CHEK COMFORT CURVE STRIP VI SCH ×4 (01:34→16:32)
[2020-07-16] MEDS: PIPERACILLIN-TAZOB 3.375GM 100 ML IV SCH ×4 (01:34→16:32)
[2020-07-16] MEDS: InsuLIN REG 1unit/0.01ml Soln (100units/ml) SC SCH ×4 (01:35→17:44)
[2020-07-16] MEDS: SODIUM BICARBONATE 50ML VIAL 150 ML in SOD CHL 0.45% 1,000 ML IV SCH ×2 (08:15→20:21)
[2020-07-16] MEDS: GABAPENTIN 300 MG CAP PO SCH ×2 (10:00→22:00)
[2020-07-16] MEDS: LOSARTAN POTASSIUM 50 MG TAB PO SCH (10:00)
[2020-07-16] MEDS: METOPROLOL TARTRATE 25 MG TAB PO SCH ×2 (10:00→22:00)
[2020-07-16] MEDS: ATORVASTATIN 20 MG TAB PO SCH (10:00)
[2020-07-16] MEDS: ENOXAPARIN SOD 100 MG/1 ML SYRINGE SC SCH ×2 (10:00→22:00)
[2020-07-16] MEDS: FLUTICASONE PROPIONATE 110 MCG IN SCH ×2 (10:00→22:00)
[2020-07-16] MEDS: BALSALAZIDE DISODIUM PO SCH (10:00)
[2020-07-16] MEDS: MONTELUKAST SODIUM 10 MG TAB PO SCH (10:00)
[2020-07-16] MEDS: CHOLECALCIFEROL (VITD3) 2,000 UNIT CAP PO SCH (10:00)
[2020-07-16] MEDS: INSULIN LANTUS (GLARGINE) 1 /0.01ml (100units/ml) SC SCH (10:00)
[2020-07-16] MEDS: HCTZ 25 MG TAB PO SCH (10:00)
[2020-07-16] MEDS: DexAMETHasone SOD PHOS 10MG/1ML VIAL INJ IV SCH (10:00)
[2020-07-16] MEDS: NOREPINEPHRINE 8 MG/250ML KIT 250 ML IV SCH (11:00)
[2020-07-16] MEDS: MIDAZOLAM DRIP 50 mg/50mL 50 ML IV SCH (11:00)
[2020-07-16] MEDS: fentaNYL Drip 2500mCg/250mlNS 250 ML IV SCH (11:09)
[2020-07-16] MEDS ORDERED: cefTRIAXone 1GM/50ML D5W 50 ML IV SCH (12:00)
[2020-07-16 13:13] LABS: Basophils # (auto) 0.1 10 ^3/uL (0-0.2); Basophils % (auto) 0.5 % (0.0-2.0); Eosinophils # (auto) 0 10 ^3/uL (0-0.8); Hematocrit 28.3 % (36.0-46.0); Hemoglobin 9.6 g/dL (12.2-16.2); Lymphocytes # (auto) 0.4 10 ^3/uL (0.4-5.4); Mean Corpuscular Hemoglobin 28.2 pg (28.0-32.0); Mean Corpuscular Hgb Conc. 34.1 g/dL (32.0-36.0); Mean Corpuscular Volume 82.8 fL (80.0-100.0); Monocytes # (auto) 0.6 10 ^3/uL (0-1.3); Monocytes % (auto) 5.3 % (0.0-12.0); Neutrophils # (auto) 9.6 10 ^3/uL (1.6-8.6); Neutrophils % (auto) 90.2 % (37.0-80.0); Nucleated Red Blood Cells % 0.3 %; Platelet Count (auto) 316 10^3/uL (140-450); Red Blood Cells 3.41 10^6/uL (4.0-5.20); Red Cell Distribution Width 16.3 % (11.8-14.3); White Blood Cell 10.6 10^3/uL (4.4-10.8)
[2020-07-16 13:33] LABS: Albumin 1.9 g/dL (3.4-5.0); Calcium 8.5 mg/dL (8.5-10.1); Magnesium 2.1 mg/dL (1.6-2.6)
[2020-07-16 13:36] LABS: BUN/Creatinine Ratio 17.8; Bilirubin, Total 0.4 mg/dL (0.2-1.0); Phosphorus 3.1 mg/dL (2.5-4.90); Total Protein 6.1 g/dL (6.4-8.2)
[2020-07-16] MEDS: ALBUMIN 25% 100 ML IV SCH (17:30)
[2020-07-17] VITALS (98 sets, daily range): BP systolic 99–136; BP diastolic 56–77
[2020-07-17] MEDS: ACCU-CHEK COMFORT CURVE STRIP VI SCH ×4 (00:02→17:14)
[2020-07-17] MEDS: InsuLIN REG 1unit/0.01ml Soln (100units/ml) SC SCH ×4 (00:34→18:11)
[2020-07-17] MEDS: ALBUMIN 25% 100 ML IV SCH ×3 (01:30→17:14)
[2020-07-17 03:04] LABS: Urine Bacteria NONE SEEN /hpf (None Seen); Urine Blood 3+ /uL (Negative); Urine Budding Yeast FEW /hpf (None Seen); Urine Specific Gravity 1.019 (1.001-1.035); Urine WBC 218 /hpf (0 - 5); Urine WBC Clumps PRESENT /hpf (None Seen)
[2020-07-17 05:34] LABS: Basophils # (auto) 0 10 ^3/uL (0-0.2); Basophils % (auto) 0.3 % (0.0-2.0); Eosinophils # (auto) 0 10 ^3/uL (0-0.8); Eosinophils % (auto) 0.1 % (0.0-7.0); Hematocrit 22.5 % (36.0-46.0); Monocytes # (auto) 0.6 10 ^3/uL (0-1.3); Neutrophils # (auto) 6.5 10 ^3/uL (1.6-8.6); Red Blood Cells 2.74 10^6/uL (4.0-5.20); Red Cell Distribution Width 16.4 % (11.8-14.3)
[2020-07-17 05:35] LABS: Hemoglobin 7.6 g/dL (12.2-16.2); Lymphocytes % (auto) 12.4 % (10.0-50.0); Mean Corpuscular Hemoglobin 27.9 pg (28.0-32.0); Monocytes % (auto) 7.1 % (0.0-12.0); Neutrophils % (auto) 80.1 % (37.0-80.0); Nucleated Red Blood Cells % 0.3 %; Platelet Count (auto) 276 10^3/uL (140-450); White Blood Cell 8.1 10^3/uL (4.4-10.8)
[2020-07-17 05:50] LABS: Calcium 8.4 mg/dL (8.5-10.1); Potassium 3.5 mmol/L (3.5-5.1)
[2020-07-17 05:52] LABS: Albumin 2.4 g/dL (3.4-5.0); Magnesium 2.1 mg/dL (1.6-2.6)
[2020-07-17] MEDS: PIPERACILLIN-TAZOB 3.375GM 100 ML IV SCH ×4 (06:00→18:07)
[2020-07-17 06:07] LABS: BUN/Creatinine Ratio 17.8; Bilirubin, Total 0.4 mg/dL (0.2-1.0); Total Protein 5.8 g/dL (6.4-8.2)
[2020-07-17] MEDS: SODIUM BICARBONATE 50ML VIAL 150 ML in SOD CHL 0.45% 1,000 ML IV SCH (07:15)
[2020-07-17] MEDS: PROPOFOL 100 ML IV SCH (08:00)
[2020-07-17] MEDS: DexAMETHasone SOD PHOS 10MG/1ML VIAL INJ IV SCH (09:12)
[2020-07-17] MEDS: LOSARTAN POTASSIUM 50 MG TAB PO SCH (10:00)
[2020-07-17] MEDS: FLUTICASONE PROPIONATE 110 MCG IN SCH ×2 (10:00→22:00)
[2020-07-17] MEDS: INSULIN LANTUS (GLARGINE) 1 /0.01ml (100units/ml) SC SCH (10:00)
[2020-07-17] MEDS: BALSALAZIDE DISODIUM PO SCH (10:00)
[2020-07-17] MEDS: METOPROLOL TARTRATE 25 MG TAB PO SCH ×2 (10:00→22:00)
[2020-07-17] MEDS: HCTZ 25 MG TAB PO SCH (10:00)
[2020-07-17] MEDS ORDERED: PANTOPRAZOLE 40 MG/10 ML VIAL INJ IV SCH (10:00)
[2020-07-17] MEDS: ATORVASTATIN 20 MG TAB PO SCH (10:12)
[2020-07-17] MEDS: MONTELUKAST SODIUM 10 MG TAB PO SCH (10:12)
[2020-07-17] MEDS: GABAPENTIN 300 MG CAP PO SCH ×2 (10:12→22:00)
[2020-07-17] MEDS: CHOLECALCIFEROL (VITD3) 2,000 UNIT CAP PO SCH (10:13)
[2020-07-17] MEDS: MIDAZOLAM DRIP 50 mg/50mL 50 ML IV SCH (11:00)
[2020-07-17] MEDS: fentaNYL Drip 2500mCg/250mlNS 250 ML IV SCH (11:00)
[2020-07-17] MEDS: NOREPINEPHRINE 8 MG/250ML KIT 250 ML IV SCH (12:30)
[2020-07-17] MEDS ORDERED: FUROSEMIDE 40 MG/4 ML VIAL IV ONE (15:45)
[2020-07-17] MEDS ORDERED: ENOXAPARIN SOD 40 MG/0.4 ML SYRINGE SC SCH (22:00)
[2020-07-17] MEDS: FAMOTIDINE (10MG/ML) 2ML VL IV SCH (22:00)
[2020-07-18] VITALS (104 sets, daily range): BP systolic 95–189; BP diastolic 53–112
[2020-07-18] MEDS: PIPERACILLIN-TAZOB 3.375GM 100 ML IV SCH ×5 (00:09→23:48)
[2020-07-18] MEDS: ACCU-CHEK COMFORT CURVE STRIP VI SCH ×4 (00:09→18:52)
[2020-07-18] MEDS: InsuLIN REG 1unit/0.01ml Soln (100units/ml) SC SCH ×4 (01:08→18:00)
[2020-07-18] MEDS: ALBUMIN 25% 100 ML IV SCH ×2 (01:30→09:30)
[2020-07-18 05:49] LABS: Basophils # (auto) 0 10 ^3/uL (0-0.2); Eosinophils # (auto) 0 10 ^3/uL (0-0.8); Eosinophils % (auto) 0.7 % (0.0-7.0); Mean Corpuscular Volume 82.4 fL (80.0-100.0)
[2020-07-18 05:52] LABS: Basophils % (auto) 0.5 % (0.0-2.0); Hematocrit 18.2 % (36.0-46.0); Lymphocytes # (auto) 1.1 10 ^3/uL (0.4-5.4); Lymphocytes % (auto) 20.5 % (10.0-50.0); Mean Corpuscular Hemoglobin 28.3 pg (28.0-32.0); Mean Corpuscular Hgb Conc. 34.3 g/dL (32.0-36.0); Monocytes # (auto) 0.4 10 ^3/uL (0-1.3); Monocytes % (auto) 6.8 % (0.0-12.0); Neutrophils % (auto) 71.5 % (37.0-80.0); Platelet Count (auto) 228 10^3/uL (140-450); Red Blood Cells 2.21 10^6/uL (4.0-5.20); White Blood Cell 5.5 10^3/uL (4.4-10.8)
[2020-07-18 06:08] LABS: Albumin 3.4 g/dL (3.4-5.0); Calcium 8.9 mg/dL (8.5-10.1); Magnesium 1.9 mg/dL (1.6-2.6); Potassium 3.1 mmol/L (3.5-5.1)
[2020-07-18 06:10] LABS: Hemoglobin 6.2 g/dL (12.2-16.2)
[2020-07-18 06:12] LABS: BUN/Creatinine Ratio 15.9; Bilirubin, Total 0.5 mg/dL (0.2-1.0); Total Protein 5.7 g/dL (6.4-8.2)
[2020-07-18] MEDS ORDERED: FUROSEMIDE 40 MG/4 ML VIAL IV ONE (08:15)
[2020-07-18] MEDS: POTASSIUM CHL 20MEQ/100ML 100 ML IV SCH ×3 (08:42→11:59)
[2020-07-18] MEDS: MIDAZOLAM DRIP 50 mg/50mL 50 ML IV SCH ×3 (09:49→23:55)
[2020-07-18] MEDS: METOPROLOL TARTRATE 25 MG TAB PO SCH ×2 (09:55→21:44)
[2020-07-18] MEDS: HCTZ 25 MG TAB PO SCH (09:55)
[2020-07-18] MEDS: LOSARTAN POTASSIUM 50 MG TAB PO SCH (10:00)
[2020-07-18] MEDS: BALSALAZIDE DISODIUM PO SCH (10:00)
[2020-07-18] MEDS: FLUTICASONE PROPIONATE 110 MCG IN SCH ×2 (10:00→21:44)
[2020-07-18] MEDS: FAMOTIDINE (10MG/ML) 2ML VL IV SCH ×2 (10:28→21:44)
[2020-07-18] MEDS: DexAMETHasone SOD PHOS 10MG/1ML VIAL INJ IV SCH (10:28)
[2020-07-18] MEDS: MONTELUKAST SODIUM 10 MG TAB PO SCH (10:30)
[2020-07-18] MEDS: GABAPENTIN 300 MG CAP PO SCH ×2 (10:30→21:45)
[2020-07-18] MEDS: CHOLECALCIFEROL (VITD3) 2,000 UNIT CAP PO SCH (10:31)
[2020-07-18] MEDS: INSULIN LANTUS (GLARGINE) 1 /0.01ml (100units/ml) SC SCH (10:33)
[2020-07-18] MEDS: ATORVASTATIN 20 MG TAB PO SCH (10:35)
[2020-07-18] MEDS: fentaNYL Drip 2500mCg/250mlNS 250 ML IV SCH ×2 (11:00→15:17)
[2020-07-18] MEDS: PROPOFOL 100 ML IV SCH ×2 (11:00→17:33)
[2020-07-18] MEDS ORDERED: PIPERACILLIN-TAZOB 3.375GM 100 ML IV SCH (12:00)
[2020-07-18] MEDS: NOREPINEPHRINE 8 MG/250ML KIT 250 ML IV SCH (12:30)
[2020-07-18] MEDS ORDERED: MAGNESIUM SULFATE 1GM/100ML 100 ML IV ONE (12:45)
[2020-07-18] MEDS: FUROSEMIDE 40 MG/4 ML VIAL IV SCH (18:00)
[2020-07-18] MEDS ORDERED: FAMOTIDINE (10MG/ML) 2ML VL IV SCH (22:00)
[2020-07-19] VITALS (100 sets, daily range): BP systolic 113–173; BP diastolic 67–109
[2020-07-19] MEDS: ACCU-CHEK COMFORT CURVE STRIP VI SCH ×4 (00:33→17:50)
[2020-07-19] MEDS: InsuLIN REG 1unit/0.01ml Soln (100units/ml) SC SCH ×4 (00:33→17:50)
[2020-07-19] MEDS: fentaNYL Drip 2500mCg/250mlNS 250 ML IV SCH ×2 (01:33→23:53)
[2020-07-19] MEDS: PROPOFOL 100 ML IV SCH ×2 (04:00→05:16)
[2020-07-19 04:23] LABS: Albumin 3.3 g/dL (3.4-5.0); Magnesium 1.8 mg/dL (1.6-2.6); Potassium 3.4 mmol/L (3.5-5.1)
[2020-07-19 04:25] LABS: BUN/Creatinine Ratio 18.9; Basophils # (auto) 0 10 ^3/uL (0-0.2); Basophils % (auto) 0.1 % (0.0-2.0); Eosinophils # (auto) 0.1 10 ^3/uL (0-0.8); Eosinophils % (auto) 0.9 % (0.0-7.0); Hematocrit 27.8 % (36.0-46.0); Hemoglobin 9.4 g/dL (12.2-16.2); Lymphocytes # (auto) 1.8 10 ^3/uL (0.4-5.4); Lymphocytes % (auto) 18.3 % (10.0-50.0); Mean Corpuscular Hemoglobin 27.7 pg (28.0-32.0); Mean Corpuscular Hgb Conc. 33.7 g/dL (32.0-36.0); Mean Corpuscular Volume 82.3 fL (80.0-100.0); Monocytes # (auto) 0.5 10 ^3/uL (0-1.3); Monocytes % (auto) 5.3 % (0.0-12.0); Neutrophils # (auto) 7.4 10 ^3/uL (1.6-8.6); Neutrophils % (auto) 75.4 % (37.0-80.0); Nucleated Red Blood Cells % 0.3 %; Platelet Count (auto) 276 10^3/uL (140-450); Red Blood Cells 3.38 10^6/uL (4.0-5.20); Red Cell Distribution Width 15.8 % (11.8-14.3); White Blood Cell 9.8 10^3/uL (4.4-10.8)
[2020-07-19 04:28] LABS: Bilirubin, Total 1.1 mg/dL (0.2-1.0)
[2020-07-19] MEDS: FUROSEMIDE 40 MG/4 ML VIAL IV SCH ×2 (05:10→17:50)
[2020-07-19] MEDS: PIPERACILLIN-TAZOB 3.375GM 100 ML IV SCH ×4 (05:10→23:24)
[2020-07-19] MEDS: MIDAZOLAM DRIP 50 mg/50mL 50 ML IV SCH ×2 (05:56→21:17)
[2020-07-19] MEDS: FLUTICASONE PROPIONATE 110 MCG IN SCH ×2 (09:07→21:17)
[2020-07-19] MEDS: METOPROLOL TARTRATE 25 MG TAB PO SCH ×2 (09:10→21:18)
[2020-07-19] MEDS: HCTZ 25 MG TAB PO SCH (09:10)
[2020-07-19] MEDS: LOSARTAN POTASSIUM 50 MG TAB PO SCH (09:10)
[2020-07-19] MEDS: BALSALAZIDE DISODIUM PO SCH (09:10)
[2020-07-19] MEDS: DexAMETHasone SOD PHOS 10MG/1ML VIAL INJ IV SCH (09:10)
[2020-07-19] MEDS: ATORVASTATIN 20 MG TAB PO SCH (09:10)
[2020-07-19] MEDS: GABAPENTIN 300 MG CAP PO SCH ×2 (09:10→21:20)
[2020-07-19] MEDS: INSULIN LANTUS (GLARGINE) 1 /0.01ml (100units/ml) SC SCH (09:11)
[2020-07-19] MEDS: MONTELUKAST SODIUM 10 MG TAB PO SCH (09:11)
[2020-07-19] MEDS: CHOLECALCIFEROL (VITD3) 2,000 UNIT CAP PO SCH (09:11)
[2020-07-19] MEDS: FAMOTIDINE (10MG/ML) 2ML VL IV SCH ×2 (09:22→21:17)
[2020-07-19] MEDS: NOREPINEPHRINE 8 MG/250ML KIT 250 ML IV SCH (10:46)
[2020-07-19] MEDS: POTASSIUM CHL 20MEQ/100ML 100 ML IV SCH ×2 (12:41→13:45)
[2020-07-20] VITALS (97 sets, daily range): BP systolic 106–157; BP diastolic 63–108
[2020-07-20] MEDS: InsuLIN REG 1unit/0.01ml Soln (100units/ml) SC SCH ×4 (00:20→18:05)
[2020-07-20] MEDS: ACCU-CHEK COMFORT CURVE STRIP VI SCH ×4 (00:21→18:19)
[2020-07-20] MEDS: PROPOFOL 100 ML IV SCH ×3 (00:23→20:59)
[2020-07-20] MEDS: MIDAZOLAM DRIP 50 mg/50mL 50 ML IV SCH ×6 (01:21→23:18)
[2020-07-20 04:25] LABS: Basophils # (auto) 0 10 ^3/uL (0-0.2); Basophils % (auto) 0.4 % (0.0-2.0); Eosinophils # (auto) 0.2 10 ^3/uL (0-0.8); Hematocrit 29.9 % (36.0-46.0); Lymphocytes # (auto) 1.6 10 ^3/uL (0.4-5.4); Lymphocytes % (auto) 18.5 % (10.0-50.0); Mean Corpuscular Hemoglobin 27.6 pg (28.0-32.0); Mean Corpuscular Hgb Conc. 33.6 g/dL (32.0-36.0); Mean Corpuscular Volume 82.2 fL (80.0-100.0); Monocytes # (auto) 0.6 10 ^3/uL (0-1.3); Monocytes % (auto) 6.5 % (0.0-12.0); Neutrophils # (auto) 6.2 10 ^3/uL (1.6-8.6); Neutrophils % (auto) 72.6 % (37.0-80.0); Nucleated Red Blood Cells % 0.2 %; Platelet Count (auto) 306 10^3/uL (140-450); Red Blood Cells 3.63 10^6/uL (4.0-5.20); Red Cell Distribution Width 15.6 % (11.8-14.3); White Blood Cell 8.5 10^3/uL (4.4-10.8)
[2020-07-20 04:53] LABS: Potassium 3.4 mmol/L (3.5-5.1)
[2020-07-20 05:10] LABS: Albumin 2.9 g/dL (3.4-5.0); BUN/Creatinine Ratio 22.1; Bilirubin, Total 0.6 mg/dL (0.2-1.0); CRP High Sensitivity 1.51 mg/dL (< 0.3); Calcium 9.2 mg/dL (8.5-10.1); Magnesium 1.6 mg/dL (1.6-2.6); Total Protein 6.2 g/dL (6.4-8.2)
[2020-07-20] MEDS: PIPERACILLIN-TAZOB 3.375GM 100 ML IV SCH ×3 (05:28→18:19)
[2020-07-20] MEDS: FUROSEMIDE 40 MG/4 ML VIAL IV SCH ×2 (05:28→18:19)
[2020-07-20] MEDS ORDERED: POTASSIUM CHL 20MEQ/100ML 100 ML IV ONE (08:45)
[2020-07-20] MEDS: METOPROLOL TARTRATE 25 MG TAB PO SCH ×2 (09:15→21:22)
[2020-07-20] MEDS: MONTELUKAST SODIUM 10 MG TAB PO SCH (09:15)
[2020-07-20] MEDS: DexAMETHasone SOD PHOS 10MG/1ML VIAL INJ IV SCH (09:15)
[2020-07-20] MEDS: CHOLECALCIFEROL (VITD3) 2,000 UNIT CAP PO SCH (09:15)
[2020-07-20] MEDS: FAMOTIDINE (10MG/ML) 2ML VL IV SCH ×2 (09:15→21:24)
[2020-07-20] MEDS: GABAPENTIN 300 MG CAP PO SCH ×2 (09:15→21:26)
[2020-07-20] MEDS: ATORVASTATIN 20 MG TAB PO SCH (09:15)
[2020-07-20] MEDS: BALSALAZIDE DISODIUM PO SCH (10:00)
[2020-07-20] MEDS: HCTZ 25 MG TAB PO SCH (10:00)
[2020-07-20] MEDS: FLUTICASONE PROPIONATE 110 MCG IN SCH ×2 (10:00→22:00)
[2020-07-20] MEDS: LOSARTAN POTASSIUM 50 MG TAB PO SCH (10:00)
[2020-07-20] MEDS: NOREPINEPHRINE 8 MG/250ML KIT 250 ML IV SCH (12:30)
[2020-07-20] MEDS: INSULIN LANTUS (GLARGINE) 1 /0.01ml (100units/ml) SC SCH (12:44)
[2020-07-20] MEDS: fentaNYL Drip 2500mCg/250mlNS 250 ML IV SCH (20:57)
[2020-07-21] VITALS (95 sets, daily range): BP systolic 80–158; BP diastolic 40–87
[2020-07-21] MEDS: ACCU-CHEK COMFORT CURVE STRIP VI SCH ×5 (00:07→23:39)
[2020-07-21] MEDS: PIPERACILLIN-TAZOB 3.375GM 100 ML IV SCH ×5 (00:07→23:38)
[2020-07-21] MEDS: InsuLIN REG 1unit/0.01ml Soln (100units/ml) SC SCH ×5 (00:08→23:39)
[2020-07-21 04:48] LABS: Basophils # (auto) 0 10 ^3/uL (0-0.2); Basophils % (auto) 0.4 % (0.0-2.0); Eosinophils # (auto) 0.2 10 ^3/uL (0-0.8); Eosinophils % (auto) 2.1 % (0.0-7.0); Hematocrit 32.5 % (36.0-46.0); Lymphocytes # (auto) 2.2 10 ^3/uL (0.4-5.4); Lymphocytes % (auto) 20.5 % (10.0-50.0); Mean Corpuscular Hemoglobin 27.8 pg (28.0-32.0); Mean Corpuscular Hgb Conc. 33.7 g/dL (32.0-36.0); Mean Corpuscular Volume 82.3 fL (80.0-100.0); Monocytes # (auto) 0.9 10 ^3/uL (0-1.3); Monocytes % (auto) 8.5 % (0.0-12.0); Neutrophils # (auto) 7.3 10 ^3/uL (1.6-8.6); Neutrophils % (auto) 68.5 % (37.0-80.0); Nucleated Red Blood Cells % 0.3 %; Platelet Count (auto) 350 10^3/uL (140-450); Red Blood Cells 3.95 10^6/uL (4.0-5.20); White Blood Cell 10.6 10^3/uL (4.4-10.8)
[2020-07-21] MEDS: MIDAZOLAM DRIP 50 mg/50mL 50 ML IV SCH ×2 (05:08→14:22)
[2020-07-21 05:10] LABS: Potassium 3.2 mmol/L (3.5-5.1)
[2020-07-21] MEDS: FUROSEMIDE 40 MG/4 ML VIAL IV SCH (05:13)
[2020-07-21 05:22] LABS: Albumin 3.1 g/dL (3.4-5.0); BUN/Creatinine Ratio 21.2; Bilirubin, Total 0.7 mg/dL (0.2-1.0); Calcium 9.4 mg/dL (8.5-10.1); Magnesium 1.3 mg/dL (1.6-2.6); Total Protein 6.9 g/dL (6.4-8.2)
[2020-07-21] MEDS: PROPOFOL 100 ML IV SCH (05:23)
[2020-07-21] MEDS: POTASSIUM CHL 20MEQ/100ML 100 ML IV SCH ×3 (08:45→12:02)
[2020-07-21] MEDS: MAGNESIUM SULFATE 1GM/100ML 100 ML IV SCH ×3 (08:45→11:01)
[2020-07-21] MEDS: DexAMETHasone SOD PHOS 10MG/1ML VIAL INJ IV SCH (09:44)
[2020-07-21] MEDS: FAMOTIDINE (10MG/ML) 2ML VL IV SCH ×2 (09:44→23:38)
[2020-07-21] MEDS: ATORVASTATIN 20 MG TAB PO SCH (09:44)
[2020-07-21] MEDS: METOPROLOL TARTRATE 25 MG TAB PO SCH ×2 (09:45→22:00)
[2020-07-21] MEDS: LOSARTAN POTASSIUM 50 MG TAB PO SCH (09:45)
[2020-07-21] MEDS: HCTZ 25 MG TAB PO SCH (09:45)
[2020-07-21] MEDS: FLUTICASONE PROPIONATE 110 MCG IN SCH ×2 (09:45→22:00)
[2020-07-21] MEDS: BALSALAZIDE DISODIUM PO SCH (09:45)
[2020-07-21] MEDS: GABAPENTIN 300 MG CAP PO SCH ×2 (09:46→22:00)
[2020-07-21] MEDS: INSULIN LANTUS (GLARGINE) 1 /0.01ml (100units/ml) SC SCH (09:47)
[2020-07-21] MEDS: CHOLECALCIFEROL (VITD3) 2,000 UNIT CAP PO SCH (09:47)
[2020-07-21] MEDS: MONTELUKAST SODIUM 10 MG TAB PO SCH (09:47)
[2020-07-21] MEDS: NOREPINEPHRINE 8 MG/250ML KIT 250 ML IV SCH (12:30)
[2020-07-21] MEDS: fentaNYL Drip 2500mCg/250mlNS 250 ML IV SCH (14:22)
[2020-07-22] VITALS (89 sets, daily range): BP systolic 103–171; BP diastolic 53–119
[2020-07-22] MEDS: PIPERACILLIN-TAZOB 3.375GM 100 ML IV SCH ×3 (05:56→17:17)
[2020-07-22] MEDS: ACCU-CHEK COMFORT CURVE STRIP VI SCH ×3 (05:57→17:17)
[2020-07-22] MEDS: InsuLIN REG 1unit/0.01ml Soln (100units/ml) SC SCH ×3 (05:58→16:47)
[2020-07-22 08:20] LABS: Basophils # (auto) 0 10 ^3/uL (0-0.2); Basophils % (auto) 0.2 % (0.0-2.0); Eosinophils # (auto) 0.1 10 ^3/uL (0-0.8); Eosinophils % (auto) 1.1 % (0.0-7.0); Lymphocytes # (auto) 1.8 10 ^3/uL (0.4-5.4); Lymphocytes % (auto) 18.6 % (10.0-50.0); Mean Corpuscular Hemoglobin 27.2 pg (28.0-32.0); Mean Corpuscular Hgb Conc. 33.3 g/dL (32.0-36.0); Mean Corpuscular Volume 81.8 fL (80.0-100.0); Monocytes # (auto) 1.1 10 ^3/uL (0-1.3); Monocytes % (auto) 11.4 % (0.0-12.0); Neutrophils # (auto) 6.5 10 ^3/uL (1.6-8.6); Neutrophils % (auto) 68.7 % (37.0-80.0); Nucleated Red Blood Cells % 0.2 %; Platelet Count (auto) 356 10^3/uL (140-450); Red Blood Cells 3.67 10^6/uL (4.0-5.20); Red Cell Distribution Width 15.9 % (11.8-14.3); White Blood Cell 9.4 10^3/uL (4.4-10.8)
[2020-07-22] MEDS: MIDAZOLAM DRIP 50 mg/50mL 50 ML IV SCH (08:35)
[2020-07-22 08:46] LABS: Albumin 2.7 g/dL (3.4-5.0); Calcium 9.3 mg/dL (8.5-10.1); Potassium 3.4 mmol/L (3.5-5.1)
[2020-07-22 08:49] LABS: BUN/Creatinine Ratio 23.8; Bilirubin, Total 0.7 mg/dL (0.2-1.0); Phosphorus 3.5 mg/dL (2.5-4.90); Total Protein 6.3 g/dL (6.4-8.2)
[2020-07-22] MEDS: POTASSIUM CHL 20MEQ/100ML 100 ML IV SCH ×3 (09:00→10:55)
[2020-07-22] MEDS: FLUTICASONE PROPIONATE 110 MCG IN SCH ×2 (09:05→21:47)
[2020-07-22] MEDS: FAMOTIDINE (10MG/ML) 2ML VL IV SCH ×2 (09:06→21:48)
[2020-07-22] MEDS: BALSALAZIDE DISODIUM PO SCH (09:06)
[2020-07-22] MEDS: LOSARTAN POTASSIUM 50 MG TAB PO SCH (09:06)
[2020-07-22] MEDS: DexAMETHasone SOD PHOS 10MG/1ML VIAL INJ IV SCH (09:06)
[2020-07-22] MEDS: FUROSEMIDE 40 MG/4 ML VIAL IV SCH (09:06)
[2020-07-22] MEDS: MONTELUKAST SODIUM 10 MG TAB PO SCH (09:07)
[2020-07-22] MEDS: METOPROLOL TARTRATE 25 MG TAB PO SCH ×2 (09:07→21:47)
[2020-07-22] MEDS: ATORVASTATIN 20 MG TAB PO SCH (09:07)
[2020-07-22] MEDS: HCTZ 25 MG TAB PO SCH (09:07)
[2020-07-22] MEDS: CHOLECALCIFEROL (VITD3) 2,000 UNIT CAP PO SCH (09:08)
[2020-07-22] MEDS: GABAPENTIN 300 MG CAP PO SCH ×2 (09:08→21:47)
[2020-07-22] MEDS: INSULIN LANTUS (GLARGINE) 1 /0.01ml (100units/ml) SC SCH (09:53)
[2020-07-22] MEDS: PROPOFOL 100 ML IV SCH (09:54)
[2020-07-22] MEDS: NOREPINEPHRINE 8 MG/250ML KIT 250 ML IV SCH (13:24)
[2020-07-22] MEDS ORDERED: POTASSIUM EFFERVESENT TAB 25 MEQ GT ONE (13:30)
[2020-07-23] VITALS (74 sets, daily range): BP systolic 79–184; BP diastolic 50–106
[2020-07-23] MEDS: ACCU-CHEK COMFORT CURVE STRIP VI SCH ×4 (00:12→18:00)
[2020-07-23] MEDS: PIPERACILLIN-TAZOB 3.375GM 100 ML IV SCH ×4 (00:12→18:00)
[2020-07-23] MEDS: InsuLIN REG 1unit/0.01ml Soln (100units/ml) SC SCH ×4 (00:15→18:00)
[2020-07-23] MEDS: fentaNYL Drip 2500mCg/250mlNS 250 ML IV SCH ×2 (06:14→22:30)
[2020-07-23] MEDS: DexAMETHasone SOD PHOS 10MG/1ML VIAL INJ IV SCH (08:29)
[2020-07-23] MEDS: FUROSEMIDE 40 MG/4 ML VIAL IV SCH (08:29)
[2020-07-23] MEDS: FLUTICASONE PROPIONATE 110 MCG IN SCH ×2 (08:30→21:06)
[2020-07-23] MEDS: BALSALAZIDE DISODIUM PO SCH (08:30)
[2020-07-23] MEDS: FAMOTIDINE (10MG/ML) 2ML VL IV SCH ×2 (08:30→23:17)
[2020-07-23] MEDS: HCTZ 25 MG TAB PO SCH (08:31)
[2020-07-23] MEDS: LOSARTAN POTASSIUM 50 MG TAB PO SCH (08:31)
[2020-07-23] MEDS: ATORVASTATIN 20 MG TAB PO SCH (08:31)
[2020-07-23] MEDS: METOPROLOL TARTRATE 25 MG TAB PO SCH ×2 (08:32→21:05)
[2020-07-23] MEDS: GABAPENTIN 300 MG CAP PO SCH ×2 (08:32→21:06)
[2020-07-23] MEDS: CHOLECALCIFEROL (VITD3) 2,000 UNIT CAP PO SCH (08:32)
[2020-07-23] MEDS: ENOXAPARIN SOD 40 MG/0.4 ML SYRINGE SC SCH (08:33)
[2020-07-23 09:36] LABS: Basophils # (auto) 0.1 10 ^3/uL (0-0.2); Basophils % (auto) 0.8 % (0.0-2.0); Eosinophils # (auto) 0.1 10 ^3/uL (0-0.8); Eosinophils % (auto) 0.8 % (0.0-7.0); Hematocrit 32.4 % (36.0-46.0); Hemoglobin 10.8 g/dL (12.2-16.2); Lymphocytes % (auto) 21.3 % (10.0-50.0); Mean Corpuscular Hemoglobin 27.5 pg (28.0-32.0); Mean Corpuscular Hgb Conc. 33.4 g/dL (32.0-36.0); Mean Corpuscular Volume 82.4 fL (80.0-100.0); Monocytes # (auto) 1.7 10 ^3/uL (0-1.3); Monocytes % (auto) 12.1 % (0.0-12.0); Neutrophils # (auto) 9.1 10 ^3/uL (1.6-8.6); Nucleated Red Blood Cells % 0.1 %; Platelet Count (auto) 383 10^3/uL (140-450); Red Blood Cells 3.93 10^6/uL (4.0-5.20); Red Cell Distribution Width 16.2 % (11.8-14.3)
[2020-07-23 09:44] LABS: Potassium 3.3 mmol/L (3.5-5.1)
[2020-07-23 09:51] LABS: BUN/Creatinine Ratio 21.2; Bilirubin, Total 0.7 mg/dL (0.2-1.0); Phosphorus 3.4 mg/dL (2.5-4.90); Total Protein 6.8 g/dL (6.4-8.2)
[2020-07-23] MEDS: MONTELUKAST SODIUM 10 MG TAB PO SCH (10:00)
[2020-07-23] MEDS: INSULIN LANTUS (GLARGINE) 1 /0.01ml (100units/ml) SC SCH (10:44)
[2020-07-23] MEDS: hydrALAZINE HCL 20 MG/ML VL IV PRN (10:45)
[2020-07-23] MEDS: MIDAZOLAM DRIP 50 mg/50mL 50 ML IV SCH ×2 (11:00→21:04)
[2020-07-23] MEDS: PROPOFOL 100 ML IV SCH (11:00)
[2020-07-23] MEDS: NOREPINEPHRINE 8 MG/250ML KIT 250 ML IV SCH ×2 (12:30→21:03)
[2020-07-23] MEDS ORDERED: POTASSIUM CHL 20MEQ/100ML 200 ML IV ONE (22:52)
[2020-07-23] MEDS: POTASSIUM CHL 20MEQ/100ML 100 ML IV SCH (23:27)
[2020-07-24] VITALS (95 sets, daily range): BP systolic 82–172; BP diastolic 46–113
[2020-07-24] MEDS: PIPERACILLIN-TAZOB 3.375GM 100 ML IV SCH ×4 (00:34→18:00)
[2020-07-24] MEDS: ACCU-CHEK COMFORT CURVE STRIP VI SCH ×4 (00:34→18:00)
[2020-07-24] MEDS: InsuLIN REG 1unit/0.01ml Soln (100units/ml) SC SCH ×4 (01:04→17:59)
[2020-07-24] MEDS: POTASSIUM CHL 20MEQ/100ML 100 ML IV SCH ×3 (02:40→11:15)
[2020-07-24 07:27] LABS: Basophils # (auto) 0 10 ^3/uL (0-0.2); Basophils % (auto) 0.1 % (0.0-2.0); Eosinophils # (auto) 0.4 10 ^3/uL (0-0.8); Eosinophils % (auto) 3.1 % (0.0-7.0); Hematocrit 31.3 % (36.0-46.0); Hemoglobin 10.3 g/dL (12.2-16.2); Lymphocytes # (auto) 2.4 10 ^3/uL (0.4-5.4); Lymphocytes % (auto) 18.7 % (10.0-50.0); Mean Corpuscular Hemoglobin 27.4 pg (28.0-32.0); Mean Corpuscular Volume 83.1 fL (80.0-100.0); Monocytes # (auto) 1.5 10 ^3/uL (0-1.3); Monocytes % (auto) 11.3 % (0.0-12.0); Neutrophils # (auto) 8.6 10 ^3/uL (1.6-8.6); Neutrophils % (auto) 66.8 % (37.0-80.0); Nucleated Red Blood Cells % 0.1 %; Platelet Count (auto) 371 10^3/uL (140-450); Red Blood Cells 3.77 10^6/uL (4.0-5.20); Red Cell Distribution Width 16.5 % (11.8-14.3); White Blood Cell 12.9 10^3/uL (4.4-10.8)
[2020-07-24 07:39] LABS: Calcium 9.8 mg/dL (8.5-10.1); Magnesium 1.8 mg/dL (1.6-2.6); Potassium 3.2 mmol/L (3.5-5.1)
[2020-07-24 07:57] LABS: Albumin 2.9 g/dL (3.4-5.0); BUN/Creatinine Ratio 25.6; Bilirubin, Total 0.7 mg/dL (0.2-1.0); CRP High Sensitivity 4.71 mg/dL (< 0.3); Phosphorus 4.4 mg/dL (2.5-4.90); Total Protein 6.6 g/dL (6.4-8.2)
[2020-07-24] MEDS: FUROSEMIDE 40 MG/4 ML VIAL IV SCH (08:56)
[2020-07-24] MEDS: FAMOTIDINE (10MG/ML) 2ML VL IV SCH ×2 (08:57→22:21)
[2020-07-24] MEDS: LOSARTAN POTASSIUM 50 MG TAB PO SCH (08:57)
[2020-07-24] MEDS: FLUTICASONE PROPIONATE 110 MCG IN SCH ×2 (08:57→22:00)
[2020-07-24] MEDS: BALSALAZIDE DISODIUM PO SCH (08:57)
[2020-07-24] MEDS: DexAMETHasone SOD PHOS 10MG/1ML VIAL INJ IV SCH (08:57)
[2020-07-24] MEDS: METOPROLOL TARTRATE 25 MG TAB PO SCH ×2 (08:58→22:21)
[2020-07-24] MEDS: ATORVASTATIN 20 MG TAB PO SCH (08:58)
[2020-07-24] MEDS: GABAPENTIN 300 MG CAP PO SCH ×2 (08:58→22:22)
[2020-07-24] MEDS: HCTZ 25 MG TAB PO SCH (08:58)
[2020-07-24] MEDS: ENOXAPARIN SOD 40 MG/0.4 ML SYRINGE SC SCH (08:59)
[2020-07-24] MEDS: CHOLECALCIFEROL (VITD3) 2,000 UNIT CAP PO SCH (08:59)
[2020-07-24] MEDS: INSULIN LANTUS (GLARGINE) 1 /0.01ml (100units/ml) SC SCH (09:52)
[2020-07-24] MEDS: MONTELUKAST SODIUM 10 MG TAB PO SCH (10:00)
[2020-07-24] MEDS: MAGNESIUM SULFATE 1GM/100ML 100 ML IV SCH ×2 (10:15→10:20)
[2020-07-24] MEDS: PROPOFOL 100 ML IV SCH (11:00)
[2020-07-24] MEDS: fentaNYL Drip 2500mCg/250mlNS 250 ML IV SCH (22:24)
[2020-07-25] VITALS (95 sets, daily range): BP systolic 85–170; BP diastolic 50–107
[2020-07-25] MEDS: LORazepam 2MG/ML-1ML VIAL IV PRN (03:31)
[2020-07-25] MEDS: ACCU-CHEK COMFORT CURVE STRIP VI SCH ×4 (03:31→18:00)
[2020-07-25] MEDS: PIPERACILLIN-TAZOB 3.375GM 100 ML IV SCH ×5 (03:31→23:21)
[2020-07-25 05:09] LABS: Basophils # (auto) 0 10 ^3/uL (0-0.2); Basophils % (auto) 0.2 % (0.0-2.0); Eosinophils # (auto) 0.3 10 ^3/uL (0-0.8); Eosinophils % (auto) 2.2 % (0.0-7.0); Hematocrit 30.7 % (36.0-46.0); Lymphocytes # (auto) 1.9 10 ^3/uL (0.4-5.4); Lymphocytes % (auto) 14.7 % (10.0-50.0); Mean Corpuscular Hemoglobin 27.3 pg (28.0-32.0); Mean Corpuscular Hgb Conc. 32.7 g/dL (32.0-36.0); Mean Corpuscular Volume 83.6 fL (80.0-100.0); Monocytes # (auto) 1.4 10 ^3/uL (0-1.3); Monocytes % (auto) 11.2 % (0.0-12.0); Neutrophils # (auto) 9.3 10 ^3/uL (1.6-8.6); Neutrophils % (auto) 71.7 % (37.0-80.0); Platelet Count (auto) 330 10^3/uL (140-450); Red Blood Cells 3.68 10^6/uL (4.0-5.20); Red Cell Distribution Width 16.7 % (11.8-14.3); White Blood Cell 12.9 10^3/uL (4.4-10.8)
[2020-07-25] MEDS: InsuLIN REG 1unit/0.01ml Soln (100units/ml) SC SCH ×4 (05:16→18:00)
[2020-07-25 05:29] LABS: Potassium 3.5 mmol/L (3.5-5.1)
[2020-07-25 05:46] LABS: Albumin 2.8 g/dL (3.4-5.0); Bilirubin, Total 0.6 mg/dL (0.2-1.0); Calcium 9.6 mg/dL (8.5-10.1); Phosphorus 4.2 mg/dL (2.5-4.90); Total Protein 6.8 g/dL (6.4-8.2)
[2020-07-25] MEDS: NOREPINEPHRINE 8 MG/250ML KIT 250 ML IV SCH (07:00)
[2020-07-25] MEDS: CHOLECALCIFEROL (VITD3) 2,000 UNIT CAP PO SCH (10:00)
[2020-07-25] MEDS: GABAPENTIN 300 MG CAP PO SCH ×2 (10:00→23:21)
[2020-07-25] MEDS: DexAMETHasone SOD PHOS 10MG/1ML VIAL INJ IV SCH (10:00)
[2020-07-25] MEDS: FAMOTIDINE (10MG/ML) 2ML VL IV SCH ×2 (10:00→23:20)
[2020-07-25] MEDS: FUROSEMIDE 40 MG/4 ML VIAL IV SCH (10:00)
[2020-07-25] MEDS: INSULIN LANTUS (GLARGINE) 1 /0.01ml (100units/ml) SC SCH (10:00)
[2020-07-25] MEDS: METOPROLOL TARTRATE 25 MG TAB PO SCH ×2 (10:00→23:21)
[2020-07-25] MEDS: LOSARTAN POTASSIUM 50 MG TAB PO SCH (10:00)
[2020-07-25] MEDS: ENOXAPARIN SOD 40 MG/0.4 ML SYRINGE SC SCH (10:00)
[2020-07-25] MEDS: MONTELUKAST SODIUM 10 MG TAB PO SCH (10:00)
[2020-07-25] MEDS: FLUTICASONE PROPIONATE 110 MCG IN SCH ×2 (10:00→22:00)
[2020-07-25] MEDS: HCTZ 25 MG TAB PO SCH (10:00)
[2020-07-25] MEDS: ATORVASTATIN 20 MG TAB PO SCH (10:00)
[2020-07-25] MEDS: BALSALAZIDE DISODIUM PO SCH (10:00)
[2020-07-25] MEDS: MIDAZOLAM DRIP 50 mg/50mL 50 ML IV SCH (11:00)
[2020-07-25] MEDS: PROPOFOL 100 ML IV SCH (11:00)
[2020-07-25] MEDS: hydrALAZINE HCL 20 MG/ML VL IV PRN (18:48)
[2020-07-26] VITALS (97 sets, daily range): BP systolic 85–179; BP diastolic 50–109
[2020-07-26] MEDS: InsuLIN REG 1unit/0.01ml Soln (100units/ml) SC SCH ×5 (00:04→23:34)
[2020-07-26] MEDS: ACCU-CHEK COMFORT CURVE STRIP VI SCH ×5 (00:05→23:43)
[2020-07-26 03:34] LABS: Basophils # (auto) 0 10 ^3/uL (0-0.2); Eosinophils # (auto) 0 10 ^3/uL (0-0.8); Monocytes # (auto) 1.1 10 ^3/uL (0-1.3); Monocytes % (auto) 6.9 % (0.0-12.0); Nucleated Red Blood Cells % 0.1 %
[2020-07-26 03:37] LABS: Hematocrit 31.5 % (36.0-46.0); Neutrophils # (auto) 13.2 10 ^3/uL (1.6-8.6)
[2020-07-26 03:51] LABS: Albumin 2.7 g/dL (3.4-5.0); Calcium 9.5 mg/dL (8.5-10.1); Magnesium 1.9 mg/dL (1.6-2.6); Potassium 3.2 mmol/L (3.5-5.1)
[2020-07-26 03:52] LABS: Basophils % (auto) 0.2 % (0.0-2.0); Eosinophils % (auto) 0.1 % (0.0-7.0); Hemoglobin 10.4 g/dL (12.2-16.2); Lymphocytes # (auto) 1.9 10 ^3/uL (0.4-5.4); Lymphocytes % (auto) 11.6 % (10.0-50.0); Mean Corpuscular Hemoglobin 27.2 pg (28.0-32.0); Mean Corpuscular Hgb Conc. 33.1 g/dL (32.0-36.0); Mean Corpuscular Volume 82.3 fL (80.0-100.0); Neutrophils % (auto) 81.2 % (37.0-80.0); Platelet Count (auto) 297 10^3/uL (140-450); Red Blood Cells 3.83 10^6/uL (4.0-5.20); Red Cell Distribution Width 16.3 % (11.8-14.3); White Blood Cell 16.3 10^3/uL (4.4-10.8)
[2020-07-26 03:55] LABS: BUN/Creatinine Ratio 29.3; Bilirubin, Total 0.7 mg/dL (0.2-1.0); Phosphorus 3.3 mg/dL (2.5-4.90); Total Protein 6.8 g/dL (6.4-8.2)
[2020-07-26] MEDS: PIPERACILLIN-TAZOB 3.375GM 100 ML IV SCH ×4 (07:05→23:32)
[2020-07-26] MEDS: FLUTICASONE PROPIONATE 110 MCG IN SCH ×2 (09:06→22:00)
[2020-07-26] MEDS: DexAMETHasone SOD PHOS 10MG/1ML VIAL INJ IV SCH (09:15)
[2020-07-26] MEDS: FUROSEMIDE 40 MG/4 ML VIAL IV SCH (09:15)
[2020-07-26] MEDS: BALSALAZIDE DISODIUM PO SCH (09:16)
[2020-07-26] MEDS: ATORVASTATIN 20 MG TAB PO SCH (09:16)
[2020-07-26] MEDS: HCTZ 25 MG TAB PO SCH (09:16)
[2020-07-26] MEDS: FAMOTIDINE (10MG/ML) 2ML VL IV SCH ×2 (09:16→22:06)
[2020-07-26] MEDS: LOSARTAN POTASSIUM 50 MG TAB PO SCH (09:16)
[2020-07-26] MEDS: CHOLECALCIFEROL (VITD3) 2,000 UNIT CAP PO SCH (09:17)
[2020-07-26] MEDS: GABAPENTIN 300 MG CAP PO SCH ×2 (09:17→22:07)
[2020-07-26] MEDS: METOPROLOL TARTRATE 25 MG TAB PO SCH ×2 (09:17→22:07)
[2020-07-26] MEDS: ENOXAPARIN SOD 40 MG/0.4 ML SYRINGE SC SCH (09:18)
[2020-07-26] MEDS: MIDAZOLAM DRIP 50 mg/50mL 50 ML IV SCH (09:18)
[2020-07-26] MEDS: PROPOFOL 100 ML IV SCH (09:18)
[2020-07-26] MEDS: MONTELUKAST SODIUM 10 MG TAB PO SCH (09:19)
[2020-07-26] MEDS: INSULIN LANTUS (GLARGINE) 1 /0.01ml (100units/ml) SC SCH (09:24)
[2020-07-26] MEDS: NOREPINEPHRINE 8 MG/250ML KIT 250 ML IV SCH (10:19)
[2020-07-26] MEDS: POTASSIUM CHL 20MEQ/100ML 100 ML IV SCH ×2 (12:00→14:04)
[2020-07-26] MEDS: hydrALAZINE HCL 20 MG/ML VL IV PRN (23:51)
[2020-07-27] VITALS (92 sets, daily range): BP systolic 89–185; BP diastolic 57–124
[2020-07-27] MEDS: InsuLIN REG 1unit/0.01ml Soln (100units/ml) SC SCH ×3 (06:00→17:59)
[2020-07-27] MEDS: PIPERACILLIN-TAZOB 3.375GM 100 ML IV SCH ×3 (06:18→21:20)
[2020-07-27] MEDS: ACCU-CHEK COMFORT CURVE STRIP VI SCH ×3 (06:18→17:58)
[2020-07-27] MEDS: FLUTICASONE PROPIONATE 110 MCG IN SCH ×2 (10:00→22:00)
[2020-07-27] MEDS: BALSALAZIDE DISODIUM PO SCH (10:00)
[2020-07-27] MEDS: PROPOFOL 100 ML IV SCH (11:00)
[2020-07-27] MEDS: MIDAZOLAM DRIP 50 mg/50mL 50 ML IV SCH (11:00)
[2020-07-27] MEDS: FUROSEMIDE 40 MG/4 ML VIAL IV SCH (11:29)
[2020-07-27] MEDS: DexAMETHasone SOD PHOS 10MG/1ML VIAL INJ IV SCH (11:29)
[2020-07-27] MEDS: FAMOTIDINE (10MG/ML) 2ML VL IV SCH ×2 (11:29→22:05)
[2020-07-27] MEDS: GABAPENTIN 300 MG CAP PO SCH ×2 (11:30→22:00)
[2020-07-27] MEDS: MONTELUKAST SODIUM 10 MG TAB PO SCH (11:30)
[2020-07-27] MEDS: ATORVASTATIN 20 MG TAB PO SCH (11:30)
[2020-07-27] MEDS: CHOLECALCIFEROL (VITD3) 2,000 UNIT CAP PO SCH (11:31)
[2020-07-27] MEDS: INSULIN LANTUS (GLARGINE) 1 /0.01ml (100units/ml) SC SCH (11:31)
[2020-07-27] MEDS: ENOXAPARIN SOD 40 MG/0.4 ML SYRINGE SC SCH (11:32)
[2020-07-27 11:56] LABS: Basophils # (auto) 0.1 10 ^3/uL (0-0.2); Basophils % (auto) 0.9 % (0.0-2.0); Eosinophils # (auto) 0.1 10 ^3/uL (0-0.8); Eosinophils % (auto) 0.9 % (0.0-7.0); Hematocrit 30.6 % (36.0-46.0); Hemoglobin 9.9 g/dL (12.2-16.2); Lymphocytes # (auto) 3.1 10 ^3/uL (0.4-5.4); Lymphocytes % (auto) 19.6 % (10.0-50.0); Mean Corpuscular Hemoglobin 26.9 pg (28.0-32.0); Mean Corpuscular Hgb Conc. 32.3 g/dL (32.0-36.0); Mean Corpuscular Volume 83.1 fL (80.0-100.0); Monocytes # (auto) 1.7 10 ^3/uL (0-1.3); Monocytes % (auto) 10.6 % (0.0-12.0); Neutrophils # (auto) 10.6 10 ^3/uL (1.6-8.6); Nucleated Red Blood Cells % 0.2 %; Platelet Count (auto) 319 10^3/uL (140-450); Red Blood Cells 3.68 10^6/uL (4.0-5.20); Red Cell Distribution Width 16.2 % (11.8-14.3); White Blood Cell 15.7 10^3/uL (4.4-10.8)
[2020-07-27 11:58] LABS: Albumin 2.3 g/dL (3.4-5.0); Calcium 8.8 mg/dL (8.5-10.1); Magnesium 1.9 mg/dL (1.6-2.6)
[2020-07-27 12:06] LABS: BUN/Creatinine Ratio 28.4; Bilirubin, Total 0.5 mg/dL (0.2-1.0); Phosphorus 2.8 mg/dL (2.5-4.90)
[2020-07-27] MEDS: NOREPINEPHRINE 8 MG/250ML KIT 250 ML IV SCH (12:30)
[2020-07-27 13:02] LABS: Potassium 2.7 mmol/L (3.5-5.1)
[2020-07-27] MEDS ORDERED: POTASSIUM CHLORIDE 20 MEQ in D5W 5% 1,000 ML IV SCH (13:15)
[2020-07-27] MEDS: METOPROLOL TARTRATE 25 MG TAB PO SCH ×2 (13:30→22:00)
[2020-07-27] MEDS: LOSARTAN POTASSIUM 50 MG TAB PO SCH (13:30)
[2020-07-27] MEDS: HCTZ 25 MG TAB PO SCH (13:45)
[2020-07-27] MEDS: MAGNESIUM SULFATE 1GM/100ML 100 ML IV SCH ×2 (13:49→15:00)
[2020-07-27] MEDS: POTASSIUM CHL 20MEQ/100ML 100 ML IV SCH ×3 (13:49→17:30)
[2020-07-27] MEDS: LORazepam 2MG/ML-1ML VIAL IV PRN (21:30)
[2020-07-27 22:40] LABS: BUN/Creatinine Ratio 20.9; Calcium 9.8 mg/dL (8.5-10.1); Magnesium 2.5 mg/dL (1.6-2.6); Potassium 4.2 mmol/L (3.5-5.1)
[2020-07-27] MEDS ORDERED: METOPROLOL TARTRATE 1MG/1ML-5ML VIAL IV ONE (23:11)
[2020-07-28] VITALS (89 sets, daily range): BP systolic 111–174; BP diastolic 72–102
[2020-07-28] MEDS: hydrALAZINE HCL 20 MG/ML VL IV PRN (00:01)
[2020-07-28] MEDS: METOPROLOL TARTRATE 1MG/1ML-5ML VIAL IV PRN ×2 (00:15→12:00)
[2020-07-28] MEDS: PIPERACILLIN-TAZOB 3.375GM 100 ML IV SCH ×4 (00:22→23:02)
[2020-07-28] MEDS: ACCU-CHEK COMFORT CURVE STRIP VI SCH ×4 (06:31→17:29)
[2020-07-28] MEDS: InsuLIN REG 1unit/0.01ml Soln (100units/ml) SC SCH ×4 (06:34→17:26)
[2020-07-28] MEDS: HCTZ 25 MG TAB PO SCH (08:14)
[2020-07-28] MEDS: LOSARTAN POTASSIUM 50 MG TAB PO SCH (08:14)
[2020-07-28] MEDS: MONTELUKAST SODIUM 10 MG TAB PO SCH (08:15)
[2020-07-28] MEDS: METOPROLOL TARTRATE 25 MG TAB PO SCH ×2 (08:15→23:02)
[2020-07-28] MEDS: ATORVASTATIN 20 MG TAB PO SCH (08:15)
[2020-07-28] MEDS: GABAPENTIN 300 MG CAP PO SCH ×2 (08:15→23:02)
[2020-07-28] MEDS: BALSALAZIDE DISODIUM PO SCH (08:17)
[2020-07-28] MEDS: FLUTICASONE PROPIONATE 110 MCG IN SCH ×2 (08:17→22:00)
[2020-07-28] MEDS: CHOLECALCIFEROL (VITD3) 2,000 UNIT CAP PO SCH (08:18)
[2020-07-28 09:49] LABS: Hematocrit 34.1 % (36.0-46.0); Hemoglobin 10.9 g/dL (12.2-16.2); Mean Corpuscular Hemoglobin 26.5 pg (28.0-32.0); Mean Corpuscular Hgb Conc. 32.1 g/dL (32.0-36.0); Mean Corpuscular Volume 82.8 fL (80.0-100.0); Platelet Count (auto) 469 10^3/uL (140-450); Red Blood Cells 4.12 10^6/uL (4.0-5.20); Red Cell Distribution Width 17.2 % (11.8-14.3); White Blood Cell 25.2 10^3/uL (4.4-10.8)
[2020-07-28 09:53] LABS: Basophils % (manual) 0 (0.0-2.0); Blast Cells 0; Eosinophils % (manual) 0 (0-7); Metamyelocytes % 0; Promyelocytes % 0; Reactive Lymphocytes 0
[2020-07-28] MEDS: DexAMETHasone SOD PHOS 10MG/1ML VIAL INJ IV SCH (10:00)
[2020-07-28] MEDS: INSULIN LANTUS (GLARGINE) 1 /0.01ml (100units/ml) SC SCH (10:00)
[2020-07-28] MEDS: FUROSEMIDE 40 MG/4 ML VIAL IV SCH (10:00)
[2020-07-28] MEDS: ENOXAPARIN SOD 40 MG/0.4 ML SYRINGE SC SCH (10:00)
[2020-07-28] MEDS: FAMOTIDINE (10MG/ML) 2ML VL IV SCH ×2 (10:00→23:01)
[2020-07-28 10:06] LABS: Albumin 2.9 g/dL (3.4-5.0); Magnesium 2.3 mg/dL (1.6-2.6); Potassium 3.1 mmol/L (3.5-5.1)
[2020-07-28 10:09] LABS: BUN/Creatinine Ratio 21.4; Bilirubin, Total 0.8 mg/dL (0.2-1.0); Phosphorus 2.6 mg/dL (2.5-4.90); Total Protein 7.3 g/dL (6.4-8.2)
[2020-07-28] MEDS: PROPOFOL 100 ML IV SCH (10:29)
[2020-07-28] MEDS: MIDAZOLAM DRIP 50 mg/50mL 50 ML IV SCH (10:57)
[2020-07-28] MEDS: NOREPINEPHRINE 8 MG/250ML KIT 250 ML IV SCH (12:30)
[2020-07-28 12:40] LABS: Band Neutrophils % (manual) 14; Lymphocytes % (manual) 9 (10.0-50.0); Monocytes % (manual) 3 (0-12); Myelocytes % 1
[2020-07-28] MEDS: POTASSIUM CHL 20MEQ/100ML 100 ML IV SCH ×2 (13:45→15:45)
[2020-07-29] VITALS (59 sets, daily range): BP systolic 112–148; BP diastolic 68–102
[2020-07-29] MEDS: InsuLIN REG 1unit/0.01ml Soln (100units/ml) SC SCH ×5 (00:23→23:50)
[2020-07-29] MEDS: ACCU-CHEK COMFORT CURVE STRIP VI SCH ×5 (00:23→23:47)
[2020-07-29] MEDS: METOPROLOL TARTRATE 1MG/1ML-5ML VIAL IV PRN (02:10)
[2020-07-29 03:50] LABS: Basophils # (auto) 0.1 10 ^3/uL (0-0.2); Basophils % (auto) 0.4 % (0.0-2.0); Eosinophils # (auto) 0 10 ^3/uL (0-0.8); Eosinophils % (auto) 0.1 % (0.0-7.0); Hematocrit 34.1 % (36.0-46.0); Hemoglobin 11.2 g/dL (12.2-16.2); Lymphocytes # (auto) 2.6 10 ^3/uL (0.4-5.4); Lymphocytes % (auto) 14.3 % (10.0-50.0); Mean Corpuscular Hgb Conc. 32.7 g/dL (32.0-36.0); Mean Corpuscular Volume 82.6 fL (80.0-100.0); Monocytes # (auto) 1.5 10 ^3/uL (0-1.3); Monocytes % (auto) 8.4 % (0.0-12.0); Neutrophils # (auto) 14.1 10 ^3/uL (1.6-8.6); Neutrophils % (auto) 76.8 % (37.0-80.0); Nucleated Red Blood Cells % 0.2 %; Platelet Count (auto) 439 10^3/uL (140-450); Red Blood Cells 4.13 10^6/uL (4.0-5.20); Red Cell Distribution Width 17.1 % (11.8-14.3); White Blood Cell 18.4 10^3/uL (4.4-10.8)
[2020-07-29 04:07] LABS: Potassium 3.4 mmol/L (3.5-5.1)
[2020-07-29 04:16] LABS: Albumin 2.9 g/dL (3.4-5.0); BUN/Creatinine Ratio 20.7; Bilirubin, Total 0.7 mg/dL (0.2-1.0); Calcium 9.7 mg/dL (8.5-10.1); Magnesium 1.7 mg/dL (1.6-2.6); Total Protein 7.2 g/dL (6.4-8.2)
[2020-07-29] MEDS: PIPERACILLIN-TAZOB 3.375GM 100 ML IV SCH ×3 (05:38→20:26)
[2020-07-29] MEDS ORDERED: POTASSIUM CHL 20MEQ/100ML 100 ML IV ONE (07:30)
[2020-07-29] MEDS: DexAMETHasone SOD PHOS 10MG/1ML VIAL INJ IV SCH (08:55)
[2020-07-29] MEDS: FAMOTIDINE (10MG/ML) 2ML VL IV SCH ×2 (08:56→20:26)
[2020-07-29] MEDS: FUROSEMIDE 40 MG/4 ML VIAL IV SCH (08:57)
[2020-07-29] MEDS: CHOLECALCIFEROL (VITD3) 2,000 UNIT CAP PO SCH (08:58)
[2020-07-29] MEDS: ATORVASTATIN 20 MG TAB PO SCH (08:58)
[2020-07-29] MEDS: GABAPENTIN 300 MG CAP PO SCH ×2 (08:58→20:26)
[2020-07-29] MEDS: MONTELUKAST SODIUM 10 MG TAB PO SCH (08:59)
[2020-07-29] MEDS: METOPROLOL TARTRATE 25 MG TAB PO SCH (08:59)
[2020-07-29] MEDS: FLUTICASONE PROPIONATE 110 MCG IN SCH ×2 (09:00→20:27)
[2020-07-29] MEDS: BALSALAZIDE DISODIUM PO SCH (09:00)
[2020-07-29] MEDS: ENOXAPARIN SOD 40 MG/0.4 ML SYRINGE SC SCH (09:03)
[2020-07-29] MEDS: INSULIN LANTUS (GLARGINE) 1 /0.01ml (100units/ml) SC SCH (10:00)
[2020-07-29] MEDS: ACETAMINOPHEN 500 MG TAB PO PRN (20:26)
[2020-07-30 00:03] VITALS: BP 138/85
[2020-07-30] MEDS: METOPROLOL TARTRATE 25 MG TAB PO SCH ×3 (00:20→21:13)
[2020-07-30 01:28] LABS: Urine Bacteria NONE SEEN /hpf (None Seen); Urine Blood Negative /uL (Negative); Urine Budding Yeast MODERATE /hpf (None Seen); Urine Mucus FEW (None Seen); Urine Specific Gravity 1.034 (1.001-1.035); Urine WBC 26 /hpf (0 - 5)
[2020-07-30] MEDS: PIPERACILLIN-TAZOB 3.375GM 100 ML IV SCH ×3 (05:27→20:59)
[2020-07-30] MEDS: ACCU-CHEK COMFORT CURVE STRIP VI SCH ×4 (05:27→23:26)
[2020-07-30] MEDS: InsuLIN REG 1unit/0.01ml Soln (100units/ml) SC SCH ×4 (05:36→23:25)
[2020-07-30 08:00] VITALS: BP 135/87
[2020-07-30] MEDS: FAMOTIDINE (10MG/ML) 2ML VL IV SCH (09:44)
[2020-07-30] MEDS: FUROSEMIDE 40 MG/4 ML VIAL IV SCH (09:44)
[2020-07-30] MEDS: DexAMETHasone SOD PHOS 10MG/1ML VIAL INJ IV SCH (09:44)
[2020-07-30] MEDS: ENOXAPARIN SOD 40 MG/0.4 ML SYRINGE SC SCH (09:45)
[2020-07-30] MEDS: CHOLECALCIFEROL (VITD3) 2,000 UNIT CAP PO SCH (09:47)
[2020-07-30] MEDS: GABAPENTIN 300 MG CAP PO SCH ×2 (09:48→20:59)
[2020-07-30] MEDS: ATORVASTATIN 20 MG TAB PO SCH (09:48)
[2020-07-30] MEDS: MONTELUKAST SODIUM 10 MG TAB PO SCH (09:48)
[2020-07-30] MEDS: BALSALAZIDE DISODIUM PO SCH (09:56)
[2020-07-30] MEDS: FLUTICASONE PROPIONATE 110 MCG IN SCH ×2 (09:57→20:59)
[2020-07-30] MEDS: INSULIN LANTUS (GLARGINE) 1 /0.01ml (100units/ml) SC SCH (11:30)
[2020-07-30 11:36] LABS: Basophils # (auto) 0.1 10 ^3/uL (0-0.2); Basophils % (auto) 0.4 % (0.0-2.0); Eosinophils # (auto) 0.1 10 ^3/uL (0-0.8); Eosinophils % (auto) 0.6 % (0.0-7.0); Hematocrit 31.2 % (36.0-46.0); Hemoglobin 10.3 g/dL (12.2-16.2); Lymphocytes # (auto) 2.5 10 ^3/uL (0.4-5.4); Lymphocytes % (auto) 19.4 % (10.0-50.0); Mean Corpuscular Hemoglobin 27.3 pg (28.0-32.0); Mean Corpuscular Hgb Conc. 33.2 g/dL (32.0-36.0); Mean Corpuscular Volume 82.3 fL (80.0-100.0); Monocytes # (auto) 1.2 10 ^3/uL (0-1.3); Monocytes % (auto) 8.9 % (0.0-12.0); Neutrophils # (auto) 9.2 10 ^3/uL (1.6-8.6); Neutrophils % (auto) 70.7 % (37.0-80.0); Nucleated Red Blood Cells % 0.2 %; Platelet Count (auto) 359 10^3/uL (140-450); Red Blood Cells 3.79 10^6/uL (4.0-5.20); Red Cell Distribution Width 16.8 % (11.8-14.3)
[2020-07-30 12:00] LABS: Albumin 2.8 g/dL (3.4-5.0); BUN/Creatinine Ratio 22.8; Bilirubin, Total 0.9 mg/dL (0.2-1.0); Calcium 9.6 mg/dL (8.5-10.1); Total Protein 7.1 g/dL (6.4-8.2)
[2020-07-30 12:19] LABS: Potassium 2.8 mmol/L (3.5-5.1)
[2020-07-30] MEDS: POTASSIUM CHL 20MEQ/100ML 100 ML IV SCH ×3 (13:08→17:51)
[2020-07-30 16:00] VITALS: BP 138/86
[2020-07-30] MEDS: PANTOPRAZOLE 40 MG TAB PO SCH (20:58)
[2020-07-30] MEDS: APIXABAN 5 MG TAB PO SCH (20:58)
[2020-07-30] MEDS: ACETAMINOPHEN 500 MG TAB PO PRN (21:18)
[2020-07-31] VITALS: BP 139/72
[2020-07-31] MEDS: PIPERACILLIN-TAZOB 3.375GM 100 ML IV SCH ×3 (05:52→22:03)
[2020-07-31] MEDS: ACCU-CHEK COMFORT CURVE STRIP VI SCH ×3 (05:52→16:44)
[2020-07-31] MEDS: InsuLIN REG 1unit/0.01ml Soln (100units/ml) SC SCH ×3 (06:00→18:08)
[2020-07-31 08:00] VITALS: BP 154/88
[2020-07-31] MEDS: PANTOPRAZOLE 40 MG TAB PO SCH ×2 (10:19→22:05)
[2020-07-31] MEDS: ATORVASTATIN 20 MG TAB PO SCH (10:19)
[2020-07-31] MEDS: CHOLECALCIFEROL (VITD3) 2,000 UNIT CAP PO SCH (10:19)
[2020-07-31] MEDS: APIXABAN 5 MG TAB PO SCH ×2 (10:19→22:04)
[2020-07-31] MEDS: GABAPENTIN 300 MG CAP PO SCH ×2 (10:20→22:05)
[2020-07-31] MEDS: ACETAMINOPHEN 500 MG TAB PO PRN ×2 (10:21→22:04)
[2020-07-31] MEDS: METOPROLOL TARTRATE 25 MG TAB PO SCH ×2 (10:21→22:05)
[2020-07-31] MEDS: MONTELUKAST SODIUM 10 MG TAB PO SCH (10:21)
[2020-07-31] MEDS: FUROSEMIDE 40 MG/4 ML VIAL IV SCH (10:22)
[2020-07-31] MEDS: BALSALAZIDE DISODIUM PO SCH (10:32)
[2020-07-31] MEDS: FLUTICASONE PROPIONATE 110 MCG IN SCH ×2 (10:32→22:00)
[2020-07-31] MEDS: INSULIN LANTUS (GLARGINE) 1 /0.01ml (100units/ml) SC SCH (10:34)
[2020-07-31] MEDS ORDERED: CELECOXIB 100 MG CAP PO ONE (15:30)
[2020-07-31 16:00] VITALS: BP 142/84
[2020-07-31] MEDS: ONDANSETRON HCL 4 MG/2 ML VIAL IV PRN (17:59)
[2020-07-31] MEDS: CELECOXIB 100 MG CAP PO SCH (22:04)
[2020-07-31 23:50] VITALS: BP 130/90
[2020-08-01] MEDS: ACCU-CHEK COMFORT CURVE STRIP VI SCH ×4 (00:14→17:17)
[2020-08-01] MEDS: InsuLIN REG 1unit/0.01ml Soln (100units/ml) SC SCH ×4 (06:00→17:18)
[2020-08-01] MEDS: PIPERACILLIN-TAZOB 3.375GM 100 ML IV SCH ×3 (06:00→22:01)
[2020-08-01 06:48] LABS: Basophils # (auto) 0 10 ^3/uL (0-0.2); Basophils % (auto) 0.4 % (0.0-2.0); Eosinophils # (auto) 0.2 10 ^3/uL (0-0.8); Eosinophils % (auto) 1.8 % (0.0-7.0); Hemoglobin 10.1 g/dL (12.2-16.2); Lymphocytes # (auto) 1.8 10 ^3/uL (0.4-5.4); Lymphocytes % (auto) 18.9 % (10.0-50.0); Mean Corpuscular Hemoglobin 27.8 pg (28.0-32.0); Mean Corpuscular Hgb Conc. 33.6 g/dL (32.0-36.0); Mean Corpuscular Volume 82.6 fL (80.0-100.0); Monocytes # (auto) 0.6 10 ^3/uL (0-1.3); Monocytes % (auto) 6.4 % (0.0-12.0); Neutrophils # (auto) 6.8 10 ^3/uL (1.6-8.6); Neutrophils % (auto) 72.5 % (37.0-80.0); Nucleated Red Blood Cells % 0.1 %; Platelet Count (auto) 275 10^3/uL (140-450); Red Blood Cells 3.63 10^6/uL (4.0-5.20); Red Cell Distribution Width 16.8 % (11.8-14.3); White Blood Cell 9.3 10^3/uL (4.4-10.8)
[2020-08-01 06:58] LABS: Albumin 2.7 g/dL (3.4-5.0); Calcium 8.9 mg/dL (8.5-10.1); Magnesium 1.7 mg/dL (1.6-2.6)
[2020-08-01 07:10] LABS: BUN/Creatinine Ratio 20.3; Bilirubin, Total 0.8 mg/dL (0.2-1.0); CRP High Sensitivity 2.27 mg/dL (< 0.3); Phosphorus 3.7 mg/dL (2.5-4.90); Total Protein 6.5 g/dL (6.4-8.2)
[2020-08-01 08:00] VITALS: BP_SYST 139; BP_SYST 144; BP_DIAS 77; BP_DIAS 91
[2020-08-01 08:34] LABS: Potassium 2.5 mmol/L (3.5-5.1)
[2020-08-01] MEDS: ATORVASTATIN 20 MG TAB PO SCH (09:39)
[2020-08-01] MEDS: METOPROLOL TARTRATE 25 MG TAB PO SCH ×2 (09:39→22:02)
[2020-08-01] MEDS: CELECOXIB 100 MG CAP PO SCH ×2 (09:40→22:02)
[2020-08-01] MEDS: GABAPENTIN 300 MG CAP PO SCH ×2 (09:40→22:02)
[2020-08-01] MEDS: PANTOPRAZOLE 40 MG TAB PO SCH ×2 (09:40→22:02)
[2020-08-01] MEDS: APIXABAN 5 MG TAB PO SCH ×2 (09:40→22:03)
[2020-08-01] MEDS: MONTELUKAST SODIUM 10 MG TAB PO SCH (09:41)
[2020-08-01] MEDS: CHOLECALCIFEROL (VITD3) 2,000 UNIT CAP PO SCH (09:41)
[2020-08-01] MEDS: FUROSEMIDE 40 MG/4 ML VIAL IV SCH (09:41)
[2020-08-01] MEDS: FLUTICASONE PROPIONATE 110 MCG IN SCH ×2 (09:49→22:00)
[2020-08-01] MEDS: BALSALAZIDE DISODIUM PO SCH (09:49)
[2020-08-01] MEDS: INSULIN LANTUS (GLARGINE) 1 /0.01ml (100units/ml) SC SCH (09:50)
[2020-08-01] MEDS: POTASSIUM CHL 20MEQ/100ML 100 ML IV SCH ×3 (11:49→16:53)
[2020-08-01 16:00] VITALS: BP 148/81
[2020-08-01] MEDS: Ensure HIGH Protein Chocolate 8oz Bottle PO SCH (18:00)
[2020-08-01] MEDS: ACETAMINOPHEN 500 MG TAB PO PRN (20:00)
[2020-08-01] MEDS: MORPHINE SULF INJ 2 MG/ML SYRINGE 1ML IV PRN (22:01)
[2020-08-02] VITALS: BP 129/82
[2020-08-02] MEDS: InsuLIN REG 1unit/0.01ml Soln (100units/ml) SC SCH ×4 (00:30→18:00)
[2020-08-02] MEDS: ACCU-CHEK COMFORT CURVE STRIP VI SCH ×4 (05:31→18:00)
[2020-08-02] MEDS: PIPERACILLIN-TAZOB 3.375GM 100 ML IV SCH ×3 (05:31→22:02)
[2020-08-02 07:09] LABS: Basophils # (auto) 0 10 ^3/uL (0-0.2); Basophils % (auto) 0.5 % (0.0-2.0); Eosinophils # (auto) 0.2 10 ^3/uL (0-0.8); Eosinophils % (auto) 2.9 % (0.0-7.0); Hematocrit 32.2 % (36.0-46.0); Hemoglobin 10.6 g/dL (12.2-16.2); Lymphocytes # (auto) 1.7 10 ^3/uL (0.4-5.4); Lymphocytes % (auto) 21.1 % (10.0-50.0); Mean Corpuscular Hemoglobin 27.2 pg (28.0-32.0); Mean Corpuscular Hgb Conc. 32.8 g/dL (32.0-36.0); Mean Corpuscular Volume 82.9 fL (80.0-100.0); Monocytes # (auto) 0.6 10 ^3/uL (0-1.3); Monocytes % (auto) 7.2 % (0.0-12.0); Neutrophils # (auto) 5.3 10 ^3/uL (1.6-8.6); Neutrophils % (auto) 68.3 % (37.0-80.0); Nucleated Red Blood Cells % 0.2 %; Platelet Count (auto) 262 10^3/uL (140-450); Red Blood Cells 3.88 10^6/uL (4.0-5.20); Red Cell Distribution Width 16.7 % (11.8-14.3); White Blood Cell 7.8 10^3/uL (4.4-10.8)
[2020-08-02 07:49] LABS: Albumin 2.7 g/dL (3.4-5.0); BUN/Creatinine Ratio 20.5; Bilirubin, Total 0.7 mg/dL (0.2-1.0); CRP High Sensitivity 3.72 mg/dL (< 0.3); Calcium 8.7 mg/dL (8.5-10.1); Magnesium 1.5 mg/dL (1.6-2.6); Phosphorus 2.7 mg/dL (2.5-4.90); Total Protein 6.6 g/dL (6.4-8.2)
[2020-08-02 08:00] VITALS: BP 153/93
[2020-08-02 08:00] LABS: Potassium 2.7 mmol/L (3.5-5.1)
[2020-08-02] MEDS: Ensure HIGH Protein Chocolate 8oz Bottle PO SCH ×4 (08:00→12:30)
[2020-08-02] MEDS ORDERED: MAGNESIUM SULFATE 1GM/100ML 100 ML IV SCH (09:00)
[2020-08-02] MEDS: CHOLECALCIFEROL (VITD3) 2,000 UNIT CAP PO SCH (09:40)
[2020-08-02] MEDS: ATORVASTATIN 20 MG TAB PO SCH (09:41)
[2020-08-02] MEDS: PANTOPRAZOLE 40 MG TAB PO SCH ×2 (09:41→22:07)
[2020-08-02] MEDS: APIXABAN 5 MG TAB PO SCH ×2 (09:41→22:04)
[2020-08-02] MEDS: GABAPENTIN 300 MG CAP PO SCH ×2 (09:41→22:04)
[2020-08-02] MEDS: CELECOXIB 100 MG CAP PO SCH ×2 (09:41→22:03)
[2020-08-02] MEDS: MONTELUKAST SODIUM 10 MG TAB PO SCH (09:41)
[2020-08-02] MEDS: MORPHINE SULF INJ 2 MG/ML SYRINGE 1ML IV PRN ×2 (09:42→22:07)
[2020-08-02] MEDS: MAGNESIUM SULFATE 1GM/100ML 100 ML IV SCH ×2 (09:42→12:30)
[2020-08-02] MEDS: POTASSIUM CHL 20MEQ/100ML 100 ML IV SCH ×3 (09:42→14:27)
[2020-08-02] MEDS: METOPROLOL TARTRATE 25 MG TAB PO SCH ×2 (09:44→22:03)
[2020-08-02] MEDS: BALSALAZIDE DISODIUM PO SCH (10:00)
[2020-08-02] MEDS: FLUTICASONE PROPIONATE 110 MCG IN SCH ×2 (10:00→22:00)
[2020-08-02] MEDS: INSULIN LANTUS (GLARGINE) 1 /0.01ml (100units/ml) SC SCH (14:46)
[2020-08-02 16:00] VITALS: BP 148/78
[2020-08-02] MEDS: Glucerna Carbsteady SHAKE Vanilla 8oz PO SCH (19:22)
[2020-08-03] VITALS: BP 143/90
[2020-08-03] MEDS: PIPERACILLIN-TAZOB 3.375GM 100 ML IV SCH ×3 (05:33→21:49)
[2020-08-03] MEDS: ACCU-CHEK COMFORT CURVE STRIP VI SCH ×4 (05:45→17:05)
[2020-08-03] MEDS: InsuLIN REG 1unit/0.01ml Soln (100units/ml) SC SCH ×4 (05:45→17:05)
[2020-08-03 05:47] LABS: Basophils # (auto) 0 10 ^3/uL (0-0.2); Basophils % (auto) 0.5 % (0.0-2.0); Eosinophils # (auto) 0.3 10 ^3/uL (0-0.8); Eosinophils % (auto) 3.6 % (0.0-7.0); Hematocrit 31.3 % (36.0-46.0); Hemoglobin 10.4 g/dL (12.2-16.2); Lymphocytes # (auto) 1.7 10 ^3/uL (0.4-5.4); Lymphocytes % (auto) 20.5 % (10.0-50.0); Mean Corpuscular Hemoglobin 27.5 pg (28.0-32.0); Mean Corpuscular Hgb Conc. 33.3 g/dL (32.0-36.0); Mean Corpuscular Volume 82.6 fL (80.0-100.0); Monocytes # (auto) 0.6 10 ^3/uL (0-1.3); Monocytes % (auto) 7.1 % (0.0-12.0); Neutrophils # (auto) 5.7 10 ^3/uL (1.6-8.6); Neutrophils % (auto) 68.3 % (37.0-80.0); Nucleated Red Blood Cells % 0.2 %; Platelet Count (auto) 245 10^3/uL (140-450); Red Blood Cells 3.79 10^6/uL (4.0-5.20); Red Cell Distribution Width 16.9 % (11.8-14.3); White Blood Cell 8.3 10^3/uL (4.4-10.8)
[2020-08-03 06:03] LABS: Albumin 2.7 g/dL (3.4-5.0); Calcium 8.6 mg/dL (8.5-10.1); Magnesium 2.1 mg/dL (1.6-2.6); Potassium 3.1 mmol/L (3.5-5.1)
[2020-08-03 06:14] LABS: BUN/Creatinine Ratio 20.2; Bilirubin, Total 0.6 mg/dL (0.2-1.0); CRP High Sensitivity 3.66 mg/dL (< 0.3); Phosphorus 2.1 mg/dL (2.5-4.90); Total Protein 6.7 g/dL (6.4-8.2)
[2020-08-03 08:00] VITALS: BP 140/83
[2020-08-03] MEDS ORDERED: POTASSIUM CHL 20 Meq TABLET PO ONE (08:45)
[2020-08-03] MEDS ORDERED: POTASSIUM CHL 20MEQ/100ML 100 ML IV ONE (08:45)
[2020-08-03] MEDS ORDERED: POTASSIUM PHOSPHATE 22 MEQ in SODIUM CHL 0.9% 100 ML IV ONE (08:45)
[2020-08-03] MEDS: ATORVASTATIN 20 MG TAB PO SCH (09:16)
[2020-08-03] MEDS: MORPHINE SULF INJ 2 MG/ML SYRINGE 1ML IV PRN ×2 (09:16→21:48)
[2020-08-03] MEDS: PANTOPRAZOLE 40 MG TAB PO SCH ×2 (09:17→21:45)
[2020-08-03] MEDS: GABAPENTIN 300 MG CAP PO SCH ×2 (09:17→21:49)
[2020-08-03] MEDS: APIXABAN 5 MG TAB PO SCH ×2 (09:17→21:44)
[2020-08-03] MEDS: METOPROLOL TARTRATE 25 MG TAB PO SCH ×2 (09:19→22:00)
[2020-08-03] MEDS: CELECOXIB 100 MG CAP PO SCH ×2 (09:19→21:44)
[2020-08-03] MEDS: FLUTICASONE PROPIONATE 110 MCG IN SCH (09:20)
[2020-08-03] MEDS: BALSALAZIDE DISODIUM PO SCH (09:20)
[2020-08-03] MEDS: CHOLECALCIFEROL (VITD3) 2,000 UNIT CAP PO SCH (09:20)
[2020-08-03] MEDS: Glucerna Carbsteady SHAKE Vanilla 8oz PO SCH ×3 (09:20→18:02)
[2020-08-03] MEDS: MONTELUKAST SODIUM 10 MG TAB PO SCH (09:20)
[2020-08-03] MEDS: INSULIN LANTUS (GLARGINE) 1 /0.01ml (100units/ml) SC SCH (12:51)
[2020-08-03] MEDS ORDERED: ALPRAZolam 0.5 MG TAB PO PRN (15:00)
[2020-08-03] MEDS ORDERED: ZOLPIDEM TARTRATE 5 MG TAB PO PRN (15:00)
[2020-08-03 16:00] VITALS: BP 145/90
[2020-08-03] MEDS: ONDANSETRON HCL 4 MG/2 ML VIAL IV PRN (21:45)
[2020-08-04] MEDS: ACCU-CHEK COMFORT CURVE STRIP VI SCH ×4 (00:58→17:35)
[2020-08-04] MEDS: MORPHINE SULF INJ 2 MG/ML SYRINGE 1ML IV PRN ×4 (04:21→21:28)
[2020-08-04] MEDS: ONDANSETRON HCL 4 MG/2 ML VIAL IV PRN (04:21)
[2020-08-04] MEDS: InsuLIN REG 1unit/0.01ml Soln (100units/ml) SC SCH ×4 (06:00→17:35)
[2020-08-04] MEDS: PIPERACILLIN-TAZOB 3.375GM 100 ML IV SCH ×3 (06:05→22:32)
[2020-08-04 06:20] LABS: Basophils # (auto) 0.1 10 ^3/uL (0-0.2); Basophils % (auto) 0.8 % (0.0-2.0); Eosinophils # (auto) 0.5 10 ^3/uL (0-0.8); Eosinophils % (auto) 4.8 % (0.0-7.0); Hemoglobin 12.5 g/dL (12.2-16.2); Lymphocytes # (auto) 1.6 10 ^3/uL (0.4-5.4); Lymphocytes % (auto) 17.2 % (10.0-50.0); Mean Corpuscular Hemoglobin 27.3 pg (28.0-32.0); Mean Corpuscular Hgb Conc. 32.9 g/dL (32.0-36.0); Mean Corpuscular Volume 83.1 fL (80.0-100.0); Monocytes # (auto) 0.6 10 ^3/uL (0-1.3); Monocytes % (auto) 5.8 % (0.0-12.0); Neutrophils # (auto) 6.8 10 ^3/uL (1.6-8.6); Neutrophils % (auto) 71.4 % (37.0-80.0); Nucleated Red Blood Cells % 0.1 %; Platelet Count (auto) 246 10^3/uL (140-450); Red Blood Cells 4.57 10^6/uL (4.0-5.20); Red Cell Distribution Width 17.3 % (11.8-14.3); White Blood Cell 9.6 10^3/uL (4.4-10.8)
[2020-08-04 08:00] VITALS: BP 120/77
[2020-08-04] MEDS: ATORVASTATIN 20 MG TAB PO SCH (09:35)
[2020-08-04] MEDS: PANTOPRAZOLE 40 MG TAB PO SCH ×2 (09:35→21:23)
[2020-08-04] MEDS: CELECOXIB 100 MG CAP PO SCH ×2 (09:35→21:22)
[2020-08-04] MEDS: APIXABAN 5 MG TAB PO SCH ×2 (09:35→21:36)
[2020-08-04] MEDS: CHOLECALCIFEROL (VITD3) 2,000 UNIT CAP PO SCH (09:35)
[2020-08-04] MEDS: POTASSIUM CHL 20 Meq TABLET PO SCH ×2 (09:36→21:22)
[2020-08-04] MEDS: GABAPENTIN 300 MG CAP PO SCH ×2 (09:36→21:22)
[2020-08-04] MEDS: MONTELUKAST SODIUM 10 MG TAB PO SCH (09:37)
[2020-08-04] MEDS: Glucerna Carbsteady SHAKE Vanilla 8oz PO SCH ×3 (09:38→17:35)
[2020-08-04] MEDS: METOPROLOL TARTRATE 25 MG TAB PO SCH ×2 (09:38→21:28)
[2020-08-04] MEDS: FLUTICASONE PROPIONATE 110 MCG IN SCH ×3 (10:00→22:00)
[2020-08-04] MEDS: BALSALAZIDE DISODIUM PO SCH (10:00)
[2020-08-04] MEDS: INSULIN LANTUS (GLARGINE) 1 /0.01ml (100units/ml) SC SCH (11:08)
[2020-08-04 11:17] LABS: Albumin 2.6 g/dL (3.4-5.0); Magnesium 1.8 mg/dL (1.6-2.6)
[2020-08-04 11:25] LABS: Bilirubin, Total 0.7 mg/dL (0.2-1.0); CRP High Sensitivity 3.02 mg/dL (< 0.3); Phosphorus 2.3 mg/dL (2.5-4.90); Total Protein 6.4 g/dL (6.4-8.2)
[2020-08-04 15:35] VITALS: BP 140/90
[2020-08-04] MEDS ORDERED: POTASSIUM PHOSPHATE 22 MEQ in SODIUM CHL 0.9% 100 ML IV ONE (17:00)
[2020-08-04] MEDS: MAGNESIUM SULFATE 1GM/100ML 100 ML IV SCH ×3 (18:09→19:10)
[2020-08-05] MEDS: ACCU-CHEK COMFORT CURVE STRIP VI SCH ×4 (00:10→18:20)
[2020-08-05] MEDS: MORPHINE SULF INJ 2 MG/ML SYRINGE 1ML IV PRN ×4 (02:59→22:25)
[2020-08-05] MEDS: InsuLIN REG 1unit/0.01ml Soln (100units/ml) SC SCH ×4 (05:57→18:00)
[2020-08-05] MEDS: PIPERACILLIN-TAZOB 3.375GM 100 ML IV SCH ×3 (05:58→22:12)
[2020-08-05 06:33] LABS: Basophils # (auto) 0 10 ^3/uL (0-0.2); Basophils % (auto) 0.6 % (0.0-2.0); Eosinophils # (auto) 0.1 10 ^3/uL (0-0.8); Eosinophils % (auto) 1.9 % (0.0-7.0); Hematocrit 29.8 % (36.0-46.0); Hemoglobin 9.9 g/dL (12.2-16.2); Lymphocytes # (auto) 0.7 10 ^3/uL (0.4-5.4); Lymphocytes % (auto) 13.8 % (10.0-50.0); Mean Corpuscular Hemoglobin 27.7 pg (28.0-32.0); Mean Corpuscular Hgb Conc. 33.4 g/dL (32.0-36.0); Mean Corpuscular Volume 82.9 fL (80.0-100.0); Monocytes # (auto) 0.4 10 ^3/uL (0-1.3); Neutrophils # (auto) 4.2 10 ^3/uL (1.6-8.6); Neutrophils % (auto) 76.7 % (37.0-80.0); Platelet Count (auto) 203 10^3/uL (140-450); Red Cell Distribution Width 17.3 % (11.8-14.3); White Blood Cell 5.4 10^3/uL (4.4-10.8)
[2020-08-05 06:51] LABS: Potassium 4.1 mmol/L (3.5-5.1)
[2020-08-05 07:11] LABS: Albumin 2.4 g/dL (3.4-5.0); Bilirubin, Total 0.8 mg/dL (0.2-1.0); CRP High Sensitivity 6.83 mg/dL (< 0.3); Calcium 8.7 mg/dL (8.5-10.1); Magnesium 2.2 mg/dL (1.6-2.6); Phosphorus 3.4 mg/dL (2.5-4.90); Total Protein 6.2 g/dL (6.4-8.2)
[2020-08-05 08:00] VITALS: BP 118/79
[2020-08-05] MEDS: Glucerna Carbsteady SHAKE Vanilla 8oz PO SCH ×3 (08:00→18:20)
[2020-08-05] MEDS: PANTOPRAZOLE 40 MG TAB PO SCH ×2 (09:46→22:14)
[2020-08-05] MEDS: CHOLECALCIFEROL (VITD3) 2,000 UNIT CAP PO SCH (09:46)
[2020-08-05] MEDS: ATORVASTATIN 20 MG TAB PO SCH (09:47)
[2020-08-05] MEDS: CELECOXIB 100 MG CAP PO SCH ×2 (09:47→22:13)
[2020-08-05] MEDS: GABAPENTIN 300 MG CAP PO SCH ×2 (09:47→22:13)
[2020-08-05] MEDS: METOPROLOL TARTRATE 25 MG TAB PO SCH ×3 (09:49→22:13)
[2020-08-05] MEDS: POTASSIUM CHL 20 Meq TABLET PO SCH ×2 (09:57→22:14)
[2020-08-05] MEDS: APIXABAN 5 MG TAB PO SCH ×2 (09:58→22:14)
[2020-08-05] MEDS: MONTELUKAST SODIUM 10 MG TAB PO SCH (09:59)
[2020-08-05] MEDS: FLUTICASONE PROPIONATE 110 MCG IN SCH ×2 (10:00→22:00)
[2020-08-05] MEDS: BALSALAZIDE DISODIUM PO SCH (10:00)
[2020-08-05] MEDS: INSULIN LANTUS (GLARGINE) 1 /0.01ml (100units/ml) SC SCH (10:00)
[2020-08-05 16:00] VITALS: BP 107/76
[2020-08-05] MEDS: NYSTATIN TOPICAL POWDER 15GM TOP SCH (22:13)
[2020-08-06] VITALS: BP 154/94
[2020-08-06] MEDS: MORPHINE SULF INJ 2 MG/ML SYRINGE 1ML IV PRN ×4 (04:35→19:43)
[2020-08-06] MEDS: ACCU-CHEK COMFORT CURVE STRIP VI SCH ×4 (05:45→17:12)
[2020-08-06] MEDS: InsuLIN REG 1unit/0.01ml Soln (100units/ml) SC SCH ×4 (05:46→17:12)
[2020-08-06] MEDS: PIPERACILLIN-TAZOB 3.375GM 100 ML IV SCH ×3 (05:59→22:07)
[2020-08-06 08:00] VITALS: BP 122/82
[2020-08-06] MEDS: Glucerna Carbsteady SHAKE Vanilla 8oz PO SCH ×3 (08:00→17:59)
[2020-08-06] MEDS: POTASSIUM CHL 20 Meq TABLET PO SCH ×2 (09:04→22:10)
[2020-08-06] MEDS: CELECOXIB 100 MG CAP PO SCH ×2 (09:04→22:10)
[2020-08-06] MEDS: APIXABAN 5 MG TAB PO SCH ×2 (09:04→22:09)
[2020-08-06] MEDS: CHOLECALCIFEROL (VITD3) 2,000 UNIT CAP PO SCH (09:05)
[2020-08-06] MEDS: NYSTATIN TOPICAL POWDER 15GM TOP SCH ×2 (09:05→22:00)
[2020-08-06] MEDS: MONTELUKAST SODIUM 10 MG TAB PO SCH (09:05)
[2020-08-06] MEDS: PANTOPRAZOLE 40 MG TAB PO SCH ×2 (09:05→22:10)
[2020-08-06] MEDS: GABAPENTIN 300 MG CAP PO SCH ×2 (09:05→22:10)
[2020-08-06] MEDS: METOPROLOL TARTRATE 25 MG TAB PO SCH ×2 (09:05→22:11)
[2020-08-06] MEDS: ATORVASTATIN 20 MG TAB PO SCH (09:05)
[2020-08-06] MEDS: FLUTICASONE PROPIONATE 110 MCG IN SCH ×2 (09:06→22:00)
[2020-08-06] MEDS: BALSALAZIDE DISODIUM PO SCH (09:06)
[2020-08-06] MEDS: INSULIN LANTUS (GLARGINE) 1 /0.01ml (100units/ml) SC SCH (10:25)
[2020-08-06 15:50] VITALS: BP 134/73
[2020-08-07] VITALS: BP 119/78
[2020-08-07] MEDS: ACCU-CHEK COMFORT CURVE STRIP VI SCH ×5 (00:18→23:47)
[2020-08-07] MEDS: MORPHINE SULF INJ 2 MG/ML SYRINGE 1ML IV PRN ×5 (01:09→20:31)
[2020-08-07] MEDS: PIPERACILLIN-TAZOB 3.375GM 100 ML IV SCH ×3 (05:28→22:29)
[2020-08-07] MEDS: InsuLIN REG 1unit/0.01ml Soln (100units/ml) SC SCH ×5 (05:44→23:47)
[2020-08-07 08:00] VITALS: BP 136/76
[2020-08-07] MEDS: Glucerna Carbsteady SHAKE Vanilla 8oz PO SCH ×3 (08:49→17:58)
[2020-08-07] MEDS: INSULIN LANTUS (GLARGINE) 1 /0.01ml (100units/ml) SC SCH (09:00)
[2020-08-07] MEDS: BALSALAZIDE DISODIUM PO SCH (09:01)
[2020-08-07] MEDS: FLUTICASONE PROPIONATE 110 MCG IN SCH ×2 (09:01→22:00)
[2020-08-07] MEDS: CELECOXIB 100 MG CAP PO SCH ×2 (09:03→22:29)
[2020-08-07] MEDS: APIXABAN 5 MG TAB PO SCH ×2 (09:04→22:30)
[2020-08-07] MEDS: ATORVASTATIN 20 MG TAB PO SCH (09:05)
[2020-08-07] MEDS: POTASSIUM CHL 20 Meq TABLET PO SCH (09:05)
[2020-08-07] MEDS: METOPROLOL TARTRATE 25 MG TAB PO SCH ×2 (09:06→22:30)
[2020-08-07] MEDS: GABAPENTIN 300 MG CAP PO SCH ×2 (09:06→22:30)
[2020-08-07] MEDS: CHOLECALCIFEROL (VITD3) 2,000 UNIT CAP PO SCH (09:07)
[2020-08-07] MEDS: MONTELUKAST SODIUM 10 MG TAB PO SCH (09:07)
[2020-08-07] MEDS: PANTOPRAZOLE 40 MG TAB PO SCH ×2 (09:07→22:29)
[2020-08-07] MEDS: NYSTATIN TOPICAL POWDER 15GM TOP SCH ×2 (09:07→22:00)
[2020-08-07 10:26] LABS: Basophils # (auto) 0 10 ^3/uL (0-0.2); Basophils % (auto) 0.3 % (0.0-2.0); Eosinophils # (auto) 0.6 10 ^3/uL (0-0.8); Eosinophils % (auto) 8.6 % (0.0-7.0); Hematocrit 28.9 % (36.0-46.0); Hemoglobin 9.7 g/dL (12.2-16.2); Lymphocytes # (auto) 1.7 10 ^3/uL (0.4-5.4); Lymphocytes % (auto) 26.4 % (10.0-50.0); Mean Corpuscular Hemoglobin 27.8 pg (28.0-32.0); Mean Corpuscular Hgb Conc. 33.5 g/dL (32.0-36.0); Mean Corpuscular Volume 82.9 fL (80.0-100.0); Monocytes # (auto) 0.6 10 ^3/uL (0-1.3); Monocytes % (auto) 8.5 % (0.0-12.0); Neutrophils # (auto) 3.7 10 ^3/uL (1.6-8.6); Neutrophils % (auto) 56.2 % (37.0-80.0); Platelet Count (auto) 222 10^3/uL (140-450); Red Blood Cells 3.48 10^6/uL (4.0-5.20); Red Cell Distribution Width 17.8 % (11.8-14.3); White Blood Cell 6.5 10^3/uL (4.4-10.8)
[2020-08-07 10:50] LABS: Albumin 2.4 g/dL (3.4-5.0); Calcium 8.9 mg/dL (8.5-10.1); Magnesium 1.8 mg/dL (1.6-2.6); Potassium 4.7 mmol/L (3.5-5.1)
[2020-08-07 10:54] LABS: BUN/Creatinine Ratio 11.7; Bilirubin, Total 0.6 mg/dL (0.2-1.0); Phosphorus 2.3 mg/dL (2.5-4.90); Total Protein 6.2 g/dL (6.4-8.2)
[2020-08-07 16:26] VITALS: BP 157/89
[2020-08-08] MEDS: MORPHINE SULF INJ 2 MG/ML SYRINGE 1ML IV PRN ×6 (01:26→22:18)
[2020-08-08] MEDS: PIPERACILLIN-TAZOB 3.375GM 100 ML IV SCH ×3 (05:41→22:18)
[2020-08-08] MEDS: InsuLIN REG 1unit/0.01ml Soln (100units/ml) SC SCH ×3 (05:46→17:50)
[2020-08-08] MEDS: ACCU-CHEK COMFORT CURVE STRIP VI SCH ×3 (05:46→17:51)
[2020-08-08 07:25] LABS: Basophils # (auto) 0 10 ^3/uL (0-0.2); Basophils % (auto) 0.4 % (0.0-2.0); Eosinophils # (auto) 0.6 10 ^3/uL (0-0.8); Hematocrit 30.3 % (36.0-46.0); Hemoglobin 9.9 g/dL (12.2-16.2); Lymphocytes # (auto) 2.1 10 ^3/uL (0.4-5.4); Lymphocytes % (auto) 28.8 % (10.0-50.0); Mean Corpuscular Hemoglobin 27.5 pg (28.0-32.0); Mean Corpuscular Hgb Conc. 32.7 g/dL (32.0-36.0); Mean Corpuscular Volume 84.2 fL (80.0-100.0); Monocytes # (auto) 0.6 10 ^3/uL (0-1.3); Monocytes % (auto) 8.7 % (0.0-12.0); Neutrophils # (auto) 3.9 10 ^3/uL (1.6-8.6); Neutrophils % (auto) 54.1 % (37.0-80.0); Nucleated Red Blood Cells % 0.1 %; Platelet Count (auto) 257 10^3/uL (140-450); Red Cell Distribution Width 18.6 % (11.8-14.3); White Blood Cell 7.3 10^3/uL (4.4-10.8)
[2020-08-08 07:38] LABS: BUN/Creatinine Ratio 10.8; Calcium 8.9 mg/dL (8.5-10.1); Magnesium 1.9 mg/dL (1.6-2.6); Phosphorus 2.8 mg/dL (2.5-4.90); Potassium 4.5 mmol/L (3.5-5.1)
[2020-08-08 08:00] VITALS: BP 117/86
[2020-08-08] MEDS: Glucerna Carbsteady SHAKE Vanilla 8oz PO SCH ×3 (08:46→17:50)
[2020-08-08] MEDS: FLUTICASONE PROPIONATE 110 MCG IN SCH ×2 (08:54→22:00)
[2020-08-08] MEDS: BALSALAZIDE DISODIUM PO SCH (08:55)
[2020-08-08] MEDS: APIXABAN 5 MG TAB PO SCH ×2 (08:57→22:17)
[2020-08-08] MEDS: CELECOXIB 100 MG CAP PO SCH ×2 (08:57→22:18)
[2020-08-08] MEDS: POTASSIUM CHL 20 Meq TABLET PO SCH (08:58)
[2020-08-08] MEDS: ATORVASTATIN 20 MG TAB PO SCH (08:59)
[2020-08-08] MEDS: METOPROLOL TARTRATE 25 MG TAB PO SCH ×2 (09:00→22:18)
[2020-08-08] MEDS: PANTOPRAZOLE 40 MG TAB PO SCH ×2 (09:00→22:18)
[2020-08-08] MEDS: GABAPENTIN 300 MG CAP PO SCH ×2 (09:00→22:18)
[2020-08-08] MEDS: INSULIN LANTUS (GLARGINE) 1 /0.01ml (100units/ml) SC SCH (09:01)
[2020-08-08] MEDS: MONTELUKAST SODIUM 10 MG TAB PO SCH (09:01)
[2020-08-08] MEDS: CHOLECALCIFEROL (VITD3) 2,000 UNIT CAP PO SCH (09:01)
[2020-08-08] MEDS: NYSTATIN TOPICAL POWDER 15GM TOP SCH ×2 (09:02→22:00)
[2020-08-08 16:00] VITALS: BP 120/91
[2020-08-09] VITALS: BP 141/82
[2020-08-09] MEDS: ACCU-CHEK COMFORT CURVE STRIP VI SCH ×5 (00:09→23:51)
[2020-08-09] MEDS: MORPHINE SULF INJ 2 MG/ML SYRINGE 1ML IV PRN ×4 (03:00→22:39)
[2020-08-09] MEDS: PIPERACILLIN-TAZOB 3.375GM 100 ML IV SCH ×3 (05:35→22:02)
[2020-08-09] MEDS: InsuLIN REG 1unit/0.01ml Soln (100units/ml) SC SCH ×5 (05:46→23:52)
[2020-08-09 07:27] LABS: Potassium 4.1 mmol/L (3.5-5.1)
[2020-08-09 07:35] LABS: CRP High Sensitivity 2.8 mg/dL (< 0.3); Calcium 8.8 mg/dL (8.5-10.1); Magnesium 1.8 mg/dL (1.6-2.6)
[2020-08-09 08:00] VITALS: BP 156/87
[2020-08-09] MEDS: Glucerna Carbsteady SHAKE Vanilla 8oz PO SCH ×3 (08:02→17:54)
[2020-08-09] MEDS: FLUTICASONE PROPIONATE 110 MCG IN SCH ×2 (08:51→22:00)
[2020-08-09] MEDS: BALSALAZIDE DISODIUM PO SCH (08:51)
[2020-08-09] MEDS: INSULIN LANTUS (GLARGINE) 1 /0.01ml (100units/ml) SC SCH (08:52)
[2020-08-09] MEDS: CELECOXIB 100 MG CAP PO SCH ×2 (08:53→22:03)
[2020-08-09] MEDS: POTASSIUM CHL 20 Meq TABLET PO SCH (08:54)
[2020-08-09] MEDS: APIXABAN 5 MG TAB PO SCH ×2 (08:54→22:03)
[2020-08-09] MEDS: METOPROLOL TARTRATE 25 MG TAB PO SCH ×2 (08:55→22:03)
[2020-08-09] MEDS: ATORVASTATIN 20 MG TAB PO SCH (08:55)
[2020-08-09] MEDS: GABAPENTIN 300 MG CAP PO SCH ×2 (08:56→22:03)
[2020-08-09] MEDS: PANTOPRAZOLE 40 MG TAB PO SCH ×2 (08:56→22:03)
[2020-08-09] MEDS: MONTELUKAST SODIUM 10 MG TAB PO SCH (08:57)
[2020-08-09] MEDS: CHOLECALCIFEROL (VITD3) 2,000 UNIT CAP PO SCH (08:57)
[2020-08-09] MEDS: NYSTATIN TOPICAL POWDER 15GM TOP SCH ×2 (08:57→22:04)
[2020-08-09] MEDS: MAGNESIUM SULFATE 1GM/100ML 100 ML IV SCH ×2 (11:50→12:43)
[2020-08-09 16:00] VITALS: BP 146/88
[2020-08-09 23:54] VITALS: BP 123/91
[2020-08-10] MEDS: MORPHINE SULF INJ 2 MG/ML SYRINGE 1ML IV PRN ×5 (02:38→22:14)
[2020-08-10] MEDS: InsuLIN REG 1unit/0.01ml Soln (100units/ml) SC SCH ×4 (06:00→23:58)
[2020-08-10] MEDS: PIPERACILLIN-TAZOB 3.375GM 100 ML IV SCH ×3 (06:06→22:13)
[2020-08-10] MEDS: ACCU-CHEK COMFORT CURVE STRIP VI SCH ×4 (06:06→23:58)
[2020-08-10 08:00] VITALS: BP 141/87
[2020-08-10] MEDS: CELECOXIB 100 MG CAP PO SCH ×2 (08:56→22:13)
[2020-08-10] MEDS: APIXABAN 5 MG TAB PO SCH ×2 (08:56→22:13)
[2020-08-10] MEDS: BALSALAZIDE DISODIUM PO SCH (08:56)
[2020-08-10] MEDS: FLUTICASONE PROPIONATE 110 MCG IN SCH ×2 (08:56→22:00)
[2020-08-10] MEDS: Glucerna Carbsteady SHAKE Vanilla 8oz PO SCH ×3 (08:56→17:32)
[2020-08-10] MEDS: POTASSIUM CHL 20 Meq TABLET PO SCH (08:57)
[2020-08-10] MEDS: ATORVASTATIN 20 MG TAB PO SCH (08:58)
[2020-08-10] MEDS: METOPROLOL TARTRATE 25 MG TAB PO SCH ×2 (08:58→22:13)
[2020-08-10] MEDS: GABAPENTIN 300 MG CAP PO SCH ×2 (08:59→22:13)
[2020-08-10] MEDS: MONTELUKAST SODIUM 10 MG TAB PO SCH (08:59)
[2020-08-10] MEDS: PANTOPRAZOLE 40 MG TAB PO SCH ×2 (08:59→22:14)
[2020-08-10] MEDS: CHOLECALCIFEROL (VITD3) 2,000 UNIT CAP PO SCH (09:00)
[2020-08-10] MEDS: NYSTATIN TOPICAL POWDER 15GM TOP SCH ×2 (09:01→22:14)
[2020-08-10] MEDS: INSULIN LANTUS (GLARGINE) 1 /0.01ml (100units/ml) SC SCH (09:02)
[2020-08-10 16:00] VITALS: BP 125/81
[2020-08-11] VITALS: BP 142/91
[2020-08-11] MEDS: MORPHINE SULF INJ 2 MG/ML SYRINGE 1ML IV PRN ×3 (02:20→12:14)
[2020-08-11] MEDS: PIPERACILLIN-TAZOB 3.375GM 100 ML IV SCH (06:00)
[2020-08-11] MEDS: InsuLIN REG 1unit/0.01ml Soln (100units/ml) SC SCH ×2 (06:00→11:35)
[2020-08-11] MEDS: ACCU-CHEK COMFORT CURVE STRIP VI SCH ×2 (06:00→11:34)
[2020-08-11 07:55] VITALS: BP 125/83
[2020-08-11] MEDS: Glucerna Carbsteady SHAKE Vanilla 8oz PO SCH ×2 (08:10→11:34)
[2020-08-11] MEDS: FLUTICASONE PROPIONATE 110 MCG IN SCH (09:08)
[2020-08-11] MEDS: INSULIN LANTUS (GLARGINE) 1 /0.01ml (100units/ml) SC SCH (09:08)
[2020-08-11] MEDS: BALSALAZIDE DISODIUM PO SCH (09:08)
[2020-08-11] MEDS: CELECOXIB 100 MG CAP PO SCH (09:21)
[2020-08-11] MEDS: APIXABAN 5 MG TAB PO SCH (09:21)
[2020-08-11] MEDS: POTASSIUM CHL 20 Meq TABLET PO SCH (09:22)
[2020-08-11] MEDS: ATORVASTATIN 20 MG TAB PO SCH (09:22)
[2020-08-11] MEDS: METOPROLOL TARTRATE 25 MG TAB PO SCH (09:23)
[2020-08-11] MEDS: MONTELUKAST SODIUM 10 MG TAB PO SCH (09:23)
[2020-08-11] MEDS: PANTOPRAZOLE 40 MG TAB PO SCH (09:23)
[2020-08-11] MEDS: GABAPENTIN 300 MG CAP PO SCH (09:23)
[2020-08-11] MEDS: NYSTATIN TOPICAL POWDER 15GM TOP SCH (09:24)
[2020-08-11] MEDS: CHOLECALCIFEROL (VITD3) 2,000 UNIT CAP PO SCH (09:24)
[2020-08-11 09:27] LABS: Basophils # (auto) 0.1 10 ^3/uL (0-0.2); Basophils % (auto) 0.8 % (0.0-2.0); Eosinophils # (auto) 0.6 10 ^3/uL (0-0.8); Eosinophils % (auto) 8.3 % (0.0-7.0); Hematocrit 27.1 % (36.0-46.0); Hemoglobin 9.1 g/dL (12.2-16.2); Lymphocytes % (auto) 25.7 % (10.0-50.0); Mean Corpuscular Hemoglobin 27.9 pg (28.0-32.0); Mean Corpuscular Hgb Conc. 33.6 g/dL (32.0-36.0); Monocytes # (auto) 0.5 10 ^3/uL (0-1.3); Monocytes % (auto) 7.1 % (0.0-12.0); Neutrophils # (auto) 4.4 10 ^3/uL (1.6-8.6); Neutrophils % (auto) 58.1 % (37.0-80.0); Platelet Count (auto) 283 10^3/uL (140-450); Red Blood Cells 3.26 10^6/uL (4.0-5.20); Red Cell Distribution Width 19.2 % (11.8-14.3); White Blood Cell 7.6 10^3/uL (4.4-10.8)
[2020-08-11 09:54] LABS: Calcium 8.5 mg/dL (8.5-10.1); Magnesium 1.7 mg/dL (1.6-2.6); Potassium 3.8 mmol/L (3.5-5.1)
[2020-08-11 09:56] LABS: BUN/Creatinine Ratio 8.6; Phosphorus 2.6 mg/dL (2.5-4.90)
== END 2020-08-11 15:19 | DRG 720 ==
LOC: EDBD 22:21 → ER 22:23 → OVERFLOW 22:24 → ICU WEST 07-14 23:40 → DOU IN ICU 07-15 02:49 → TELE-WESTW 07-29 14:55
PROVIDERS: ADMIT Internal Medicine; ATTEND Internal Medicine
PROC: 5A09457 Assistance with Respiratory Ventilation, 24-96 Consecutive Hours, Continuous Positive Airway Pressure (ICD-10-PCS; 2020-07-12)
PROC: 0T9B70Z Drainage of Bladder with Drainage Device, Via Natural or Artificial Opening (ICD-10-PCS; principal; 2020-07-13)
PROC: 5A1955Z Respiratory Ventilation, Greater than 96 Consecutive Hours (ICD-10-PCS; 2020-07-13)
PROC: 0BH17EZ Insertion of Endotracheal Airway into Trachea, Via Natural or Artificial Opening (ICD-10-PCS; 2020-07-13)
PROC: 02HV33Z Insertion of Infusion Device into Superior Vena Cava, Percutaneous Approach (ICD-10-PCS; 2020-07-14)
PROC: 05HF33Z Insertion of Infusion Device into Left Cephalic Vein, Percutaneous Approach (ICD-10-PCS; 2020-07-14)
PROC: B54NZZA Ultrasonography of Left Upper Extremity Veins, Guidance (ICD-10-PCS; 2020-07-14)
PROC: 30233N1 Transfusion of Nonautologous Red Blood Cells into Peripheral Vein, Percutaneous Approach (ICD-10-PCS; 2020-07-18)
DX: A41.89 Other specified sepsis (principal); U07.1 COVID-19; J12.82 Pneumonia due to coronavirus disease 2019; J96.01 Acute respiratory failure with hypoxia; N17.9 Acute kidney failure, unspecified; I50.23 Acute on chronic systolic (congestive) heart failure; K52.9 Noninfective gastroenteritis and colitis, unspecified; E66.01 Morbid (severe) obesity due to excess calories; J98.11 Atelectasis; N18.9 Chronic kidney disease, unspecified; I48.0 Paroxysmal atrial fibrillation; E87.5 Hyperkalemia; D64.9 Anemia, unspecified; E88.09 Other disorders of plasma-protein metabolism, not elsewhere classified; E83.42 Hypomagnesemia; E87.6 Hypokalemia; I82.619 Acute embolism and thrombosis of superficial veins of unspecified upper extremity; I80.9 Phlebitis and thrombophlebitis of unspecified site; E11.22 Type 2 diabetes mellitus with diabetic chronic kidney disease; I13.0 Hypertensive heart and chronic kidney disease with heart failure and stage 1 through stage 4 chronic kidney disease, or unspecified chronic kidney disease; Z96.641 Presence of right artificial hip joint; Z79.01 Long term (current) use of anticoagulants; Z79.4 Long term (current) use of insulin; Z79.899 Other long term (current) drug therapy; Z68.41 Body mass index [BMI] 40.0-44.9, adult; Z80.49 Family history of malignant neoplasm of other genital organs; Z82.3 Family history of stroke; Z82.49 Family history of ischemic heart disease and other diseases of the circulatory system; I21.4 Non-ST elevation (NSTEMI) myocardial infarction
CPT/HCPCS: 36415; 36600; 51702; 70450; 71045; 76700; 80048; 80053; 81001; 82550; 82728; 82805; 82962; 83605; 83735; 83880; 84100; 84443; 84484; 85007; 85025; 85027; 85379; 85610; 85730; 86141; 86850; 86900; 86901; 86920; 87040; 87070; 87081; 87086; 87088; 87205; 87426; 92610; 93970; 93971; 94002; 94003; 94640; 94660; 96365; 96366; 96372; 96375; 97110; 97116; 97163; 97530; 99291; G0378; J1100; J1815; J2250; J2405; J2543; J2704; J3480; J3490; J7060; P9047

== ENCOUNTER 2022-10-31 11:24 | Inpatient (IN) | payer MEDICAID ==
[2022-10-30 14:24] LABS: Basophils # (auto) 0.1 10 ^3/uL (0-0.2); Eosinophils # (auto) 0.2 10 ^3/uL (0-0.8); Hematocrit 38.9 % (36.0-46.0); Hemoglobin 12.7 g/dL (12.2-16.2); Monocytes # (auto) 0.6 10 ^3/uL (0-1.3); White Blood Cell 11.7 10^3/uL (4.4-10.8)
[2022-10-30 14:26] LABS: Basophils % (auto) 0.6 % (0.0-2.0); Eosinophils % (auto) 1.4 % (0.0-7.0); Lymphocytes # (auto) 3.4 10 ^3/uL (0.4-5.4); Lymphocytes % (auto) 29.1 % (10.0-50.0); Mean Corpuscular Hgb Conc. 32.5 g/dL (32.0-36.0); Mean Corpuscular Volume 80.1 fL (80.0-100.0); Monocytes % (auto) 5.2 % (0.0-12.0); Neutrophils # (auto) 7.5 10 ^3/uL (1.6-8.6); Neutrophils % (auto) 63.7 % (37.0-80.0); Nucleated Red Blood Cells % 0.1 %; Red Blood Cells 4.86 10^6/uL (4.0-5.20); Red Cell Distribution Width 15.3 % (11.8-14.3)
[2022-10-30 14:51] LABS: Albumin 3.1 g/dL (3.4-5.0); BUN/Creatinine Ratio 15.9 (10.0-20.0); Calcium 9.4 mg/dL (8.5-10.1); Potassium 3.3 mmol/L (3.5-5.1)
[2022-10-30 15:06] LABS: Bilirubin, Total 0.5 mg/dL (0.2-1.0); Total Protein 7.4 g/dL (6.4-8.2)
[2022-10-30 15:10] LABS: INR 0.94 (0.9-1.15); Partial Thromboplastin Time 25.4 sec (24.6-33.4)
[~2022-10-31] VITALS: Ht 165.1 cm; Wt 141.7 kg
[~2022-10-31 11:24] MED LIST changes: +AML5T PO; +APIX5TAB PO; -BALS750C6 PO; -CHOL20007 PO; +CHOL500014 PO; +DRON400T PO; +GLIP5TAB12 PO; +INSU100I43 SC; -INSU1INJ19 SC; +LINA1CAP2 PO; +MAGN400T40 OR; +MONT-8 PO; -MONT10TA34 PO; +PANT40TA2 PO; +SIME80CH6 PO
[2022-10-31] MEDS ORDERED: LIDOCAINE 2% (LOCAL ANESTH.) PF 5ml SDV ONE (11:35)
[2022-10-31] MEDS ORDERED: DexAMETHasone SOD PHOS 4 MG/1ML SDV INJ ONE (11:36)
[2022-10-31] MEDS ORDERED: ceFAZolin 1GM/50ML 100 ML IV ONE (11:56)
[2022-10-31] MEDS ORDERED: TETRACAINE 1% INJ 2 ML VIAL IJ ONE (12:39)
[2022-10-31] MEDS ORDERED: MORPHINE SULF PF 5 MG/10 ML VIAL ONE (12:40)
[2022-10-31] MEDS ORDERED: fentaNYL CITRATE 100 MCG/2 ML VL ONE (12:40)
[2022-10-31] MEDS ORDERED: MIDAZOLAM HCL 2MG/2ML 2ml VIAL (1mg/ml) ONE (12:40)
[2022-10-31] MEDS ORDERED: ONDANSETRON HCL 4 MG/2 ML VIAL IV PRN (14:15)
[2022-10-31] MEDS ORDERED: HYDROmorphone HCL 2 MG/ML VL/or syr IV PRN ×2 (14:15)
[2022-10-31] MEDS ORDERED: PROPOFOL 10 MG/ML 20 ML IV ONE (14:26)
[2022-10-31 14:37] LABS: Urine Bacteria FEW /hpf (None Seen); Urine Blood Negative /uL (Negative); Urine Specific Gravity 1.016 (1.001-1.035); Urine WBC 1 /hpf (0 - 5)
[2022-10-31] MEDS ORDERED: ONDANSETRON HCL 4 MG/2 ML VIAL ONE (14:37)
[2022-10-31] MEDS ORDERED: ACETAMINOPHEN 325 MG TAB PO PRN (16:00)
[2022-10-31] MEDS ORDERED: NITROGLYCERIN 0.4 MG SL TAB SL PRN (16:00)
[2022-10-31] MEDS ORDERED: MORPHINE SULFATE INJ 2 MG/ml SYRG IV PRN (16:00)
[2022-10-31] MEDS ORDERED: ALBUTEROL MEDNEB 2.5 mg/3ml NEB NEB PRN (16:30)
[2022-10-31] MEDS: LACTATED RINGER'S 1,000 ML IV SCH (18:15)
[2022-10-31 18:19] VITALS: BP_SYST 143; BP_DIAS 75; BP_DIAS 85
[2022-10-31] MEDS: ONDANSETRON HCL 4 MG/2 ML VIAL IV PRN (19:03)
[2022-10-31] MEDS: MORPHINE SULFATE 4 MG/ML SYR/VIAL IV PRN (19:03)
[2022-10-31 22:00] VITALS: BP 131/79
[2022-10-31] MEDS ORDERED: FLUTICASONE PROPIONATE 110 MCG IN SCH (22:00)
[2022-10-31] MEDS ORDERED: APIXABAN 5 MG TAB PO SCH (22:00)
[2022-10-31] MEDS: METOPROLOL TARTRATE 25 MG TAB PO SCH (22:13)
[2022-10-31] MEDS: GABAPENTIN 300 MG CAP PO SCH (22:13)
[2022-10-31] MEDS: SODIUM CHLOR 0.9% PF (SALINE LOCK) 10ML VIAL/SYR IV SCH (22:15)
[2022-10-31] MEDS: ceFAZolin 2 GM/D5W100ml 100 ML IV SCH (22:42)
[2022-10-31] MEDS ORDERED: DEXTROSE (50%) 50ML SYRG IV PRN (23:30)
[2022-11-01] MEDS: InsuLIN REG 1unit/0.01ml Soln (100units/ml) SC SCH ×5 (00:11→21:51)
[2022-11-01] MEDS: ONDANSETRON HCL 4 MG/2 ML VIAL IV PRN ×3 (00:17→21:44)
[2022-11-01] MEDS: MORPHINE SULFATE 4 MG/ML SYR/VIAL IV PRN ×3 (00:18→21:18)
[2022-11-01 05:00] VITALS: BP 133/77
[2022-11-01] MEDS: LACTATED RINGER'S 1,000 ML IV SCH ×2 (05:11→12:00)
[2022-11-01] MEDS: GABAPENTIN 300 MG CAP PO SCH ×3 (05:58→21:14)
[2022-11-01] MEDS: ceFAZolin 2 GM/D5W100ml 100 ML IV SCH ×3 (05:59→21:13)
[2022-11-01] MEDS: SODIUM CHLOR 0.9% PF (SALINE LOCK) 10ML VIAL/SYR IV SCH ×3 (06:19→21:53)
[2022-11-01] MEDS: ACCU-CHEK COMFORT CURVE STRIP VI SCH ×4 (06:21→21:51)
[2022-11-01 09:00] VITALS: BP_SYST 142; BP_DIAS 67; BP_DIAS 93
[2022-11-01] MEDS ORDERED: APIXABAN 5 MG TAB PO SCH (10:00)
[2022-11-01] MEDS ORDERED: glipiZIDE 5 MG TAB PO SCH (10:00)
[2022-11-01] MEDS: Linaclotide Base (Linzess) 72 MCG PO SCH (10:00)
[2022-11-01] MEDS ORDERED: ATORVASTATIN 20 MG TAB PO SCH (10:00)
[2022-11-01] MEDS ORDERED: HCTZ 25 MG TAB PO SCH (10:00)
[2022-11-01] MEDS ORDERED: MONTELUKAST SODIUM 10 MG TAB PO SCH (10:00)
[2022-11-01] MEDS: SIMETHICONE 80 MG CHEWABLE TABLET PO SCH (10:00)
[2022-11-01] MEDS ORDERED: ASPirin 81 mg TAB PO SCH (10:00)
[2022-11-01] MEDS: OXYCODONE W/ ACETAMINOPHEN 5/325MG TABLET PO PRN ×2 (10:27→17:22)
[2022-11-01] MEDS: LOSARTAN POTASSIUM 50 MG TAB PO SCH (10:29)
[2022-11-01] MEDS: PANTOPRAZOLE 40 MG TAB PO SCH (10:30)
[2022-11-01] MEDS: amLODIPine BESYLATE 5 MG TAB PO SCH (10:30)
[2022-11-01] MEDS: METOPROLOL TARTRATE 25 MG TAB PO SCH ×2 (10:31→21:15)
[2022-11-01] MEDS: APIXABAN 2.5 MG TAB PO SCH ×2 (10:31→21:13)
[2022-11-01 13:00] VITALS: BP_SYST 111; BP_SYST 126; BP_DIAS 59; BP_DIAS 78
[2022-11-01 16:48] VITALS: BP 117/74
[2022-11-01 20:29] VITALS: BP 117/74
[2022-11-01] MEDS ORDERED: ALBUTEROL SULF 2.5 MG/0.5ML(0.5%) NEB SOLN ONE (20:54)
[2022-11-01] MEDS: BUDESONIDE (INHALATION) 0.5 MG/2 ML NEB NEB SCH ×2 (20:57→20:58)
[2022-11-01] MEDS: ATORVASTATIN 20 MG TAB PO SCH (21:14)
[2022-11-01] MEDS: MONTELUKAST SODIUM 10 MG TAB PO SCH (21:14)
[2022-11-01] MEDS: DRONEDARONE HCL 400 MG TAB PO SCH (21:44)
[2022-11-01 22:00] VITALS: BP 105/60
[2022-11-02] MEDS: OXYCODONE W/ ACETAMINOPHEN 5/325MG TABLET PO PRN ×4 (02:54→18:38)
[2022-11-02 05:00] VITALS: BP 103/62
[2022-11-02] MEDS: ceFAZolin 2 GM/D5W100ml 100 ML IV SCH ×2 (05:24→13:55)
[2022-11-02] MEDS: SODIUM CHLOR 0.9% PF (SALINE LOCK) 10ML VIAL/SYR IV SCH ×3 (05:24→22:00)
[2022-11-02] MEDS: GABAPENTIN 300 MG CAP PO SCH ×2 (05:24→13:55)
[2022-11-02] MEDS: InsuLIN REG 1unit/0.01ml Soln (100units/ml) SC SCH ×4 (06:25→22:00)
[2022-11-02] MEDS: ACCU-CHEK COMFORT CURVE STRIP VI SCH ×3 (06:25→17:43)
[2022-11-02] MEDS: BUDESONIDE (INHALATION) 0.5 MG/2 ML NEB NEB SCH ×2 (06:26→21:48)
[2022-11-02 06:34] LABS: Eosinophils # (auto) 0.1 10 ^3/uL (0-0.8); Eosinophils % (auto) 0.5 % (0.0-7.0); Hemoglobin 10.5 g/dL (12.2-16.2); Neutrophils # (auto) 7.2 10 ^3/uL (1.6-8.6); Nucleated Red Blood Cells % 0.1 %
[2022-11-02 06:37] LABS: Basophils # (auto) 0 10 ^3/uL (0-0.2); Basophils % (auto) 0.3 % (0.0-2.0); Lymphocytes # (auto) 3.6 10 ^3/uL (0.4-5.4); Lymphocytes % (auto) 30.1 % (10.0-50.0); Mean Corpuscular Hgb Conc. 31.7 g/dL (32.0-36.0); Monocytes % (auto) 8.7 % (0.0-12.0); Neutrophils % (auto) 60.4 % (37.0-80.0); Red Blood Cells 4.03 10^6/uL (4.0-5.20); Red Cell Distribution Width 15.3 % (11.8-14.3)
[2022-11-02 09:00] VITALS: BP 105/55
[2022-11-02] MEDS: LOSARTAN POTASSIUM 50 MG TAB PO SCH (09:37)
[2022-11-02] MEDS: Linaclotide Base (Linzess) 72 MCG PO SCH (09:37)
[2022-11-02] MEDS: APIXABAN 2.5 MG TAB PO SCH (09:37)
[2022-11-02] MEDS: SIMETHICONE 80 MG CHEWABLE TABLET PO SCH (09:38)
[2022-11-02] MEDS: METOPROLOL TARTRATE 25 MG TAB PO SCH (09:38)
[2022-11-02] MEDS: amLODIPine BESYLATE 5 MG TAB PO SCH (09:38)
[2022-11-02] MEDS: PANTOPRAZOLE 40 MG TAB PO SCH (09:39)
[2022-11-02 13:00] VITALS: BP 107/57
[2022-11-02 16:17] VITALS: BP 142/70
[2022-11-02 20:00] VITALS: BP 126/75
[2022-11-03 00:06] VITALS: BP 126/75
[2022-11-03] MEDS: DOCUSATE SOD 100 MG CAP PO PRN ×3 (01:03→16:17)
[2022-11-03] MEDS: ACCU-CHEK COMFORT CURVE STRIP VI SCH ×4 (01:09→17:47)
[2022-11-03] MEDS: OXYCODONE W/ ACETAMINOPHEN 5/325MG TABLET PO PRN ×3 (01:24→16:17)
[2022-11-03] MEDS: GABAPENTIN 300 MG CAP PO SCH ×3 (01:24→14:08)
[2022-11-03] MEDS: MONTELUKAST SODIUM 10 MG TAB PO SCH (01:24)
[2022-11-03] MEDS: APIXABAN 2.5 MG TAB PO SCH ×2 (01:25→09:51)
[2022-11-03] MEDS: ATORVASTATIN 20 MG TAB PO SCH (01:25)
[2022-11-03] MEDS: METOPROLOL TARTRATE 25 MG TAB PO SCH ×2 (01:25→09:51)
[2022-11-03] MEDS: DRONEDARONE HCL 400 MG TAB PO SCH (01:26)
[2022-11-03] MEDS: ceFAZolin 2 GM/D5W100ml 100 ML IV SCH ×3 (01:26→14:08)
[2022-11-03 04:48] VITALS: BP 106/71
[2022-11-03] MEDS: SODIUM CHLOR 0.9% PF (SALINE LOCK) 10ML VIAL/SYR IV SCH ×2 (05:33→14:08)
[2022-11-03] MEDS: InsuLIN REG 1unit/0.01ml Soln (100units/ml) SC SCH ×3 (05:59→17:52)
[2022-11-03 09:00] VITALS: BP 106/61
[2022-11-03] MEDS: Linaclotide Base (Linzess) 72 MCG PO SCH (09:50)
[2022-11-03] MEDS: LOSARTAN POTASSIUM 50 MG TAB PO SCH (09:51)
[2022-11-03] MEDS: SIMETHICONE 80 MG CHEWABLE TABLET PO SCH (09:51)
[2022-11-03] MEDS: PANTOPRAZOLE 40 MG TAB PO SCH (09:52)
[2022-11-03] MEDS: amLODIPine BESYLATE 5 MG TAB PO SCH (09:52)
[2022-11-03] MEDS: BUDESONIDE (INHALATION) 0.5 MG/2 ML NEB NEB SCH (10:08)
[2022-11-03] MEDS ORDERED: FLEET MINERAL OIL ENEMA 133 ML PR ONE (11:45)
[2022-11-03 13:00] VITALS: BP 119/70
[2022-11-03 17:00] VITALS: BP 125/64
== END 2022-11-03 20:42 | DRG 313 ==
LOC: SUR 11:24 → WEST WING 15:54 → OBSVTOIN 11-01 14:04
PROVIDERS: ADMIT Orthopaedic Surgery; ATTEND Internal Medicine Pulmonary Disease
PROC: BQ1H1ZZ Fluoroscopy of Left Ankle using Low Osmolar Contrast (ICD-10-PCS; 2022-10-31)
PROC: 0QSJ04Z Reposition Right Fibula with Internal Fixation Device, Open Approach (ICD-10-PCS; principal; 2022-10-31 12:40)
DX: S82.851A Displaced trimalleolar fracture of right lower leg, initial encounter for closed fracture (principal); R71.0 Precipitous drop in hematocrit; E66.01 Morbid (severe) obesity due to excess calories; K59.00 Constipation, unspecified; X58.XXXA Exposure to other specified factors, initial encounter; Y93.89 Activity, other specified; Y92.89 Other specified places as the place of occurrence of the external cause; Y99.8 Other external cause status; Z68.42 Body mass index [BMI] 45.0-49.9, adult
CPT/HCPCS: 36415; 73600; 76000; 80053; 81001; 82962; 85025; 85610; 85730; 94640; 97110; 97163; 97530; G0378; J0690; J1100; J1815; J2001; J2250; J2405; J2704

== ENCOUNTER 2023-10-08 13:22 | Inpatient (IN) | payer MEDICAID ==
[~2023-10-08] VITALS: Ht 167.6 cm; Wt 133.2 kg
[~2023-10-08 13:22] MED LIST changes: +GABA-1250 PO; -GABA300C10 PO; -GLIP5TAB12 PO; +GLIP5TAB21 PO; +LOSA-534 PO; -LOSA-69 PO; +SIME80CH49 PO; -SIME80CH6 PO; +VENL1TAB97
[2023-10-08 13:47] LABS: Eosinophils # (auto) 0.1 10 ^3/uL (0-0.8); Eosinophils % (auto) 0.6 % (0.0-7.0); Monocytes # (auto) 1.2 10 ^3/uL (0-1.3); Nucleated Red Blood Cells % 0.1 %
[2023-10-08 13:50] LABS: Basophils # (auto) 0 10 ^3/uL (0-0.2); Basophils % (auto) 0.3 % (0.0-2.0); Hematocrit 52.1 % (36.0-46.0); Hemoglobin 16.1 g/dL (12.2-16.2); Lymphocytes # (auto) 4.5 10 ^3/uL (0.4-5.4); Mean Corpuscular Hemoglobin 26.1 pg (28.0-32.0); Mean Corpuscular Hgb Conc. 30.8 g/dL (32.0-36.0); Mean Corpuscular Volume 84.7 fL (80.0-100.0); Monocytes % (auto) 8.7 % (0.0-12.0); Neutrophils # (auto) 7.4 10 ^3/uL (1.6-8.6); Neutrophils % (auto) 56.4 % (37.0-80.0); Red Blood Cells 6.15 10^6/uL (4.0-5.20); Red Cell Distribution Width 18.5 % (11.8-14.3); White Blood Cell 13.2 10^3/uL (4.4-10.8)
[2023-10-08 14:55] LABS: Albumin 4.3 g/dL (3.2-4.8); Alkaline Phosphatase 116 U/L (46-116); Anion Gap 20.00001 (5-15); BUN/Creatinine Ratio 5.6 (10.0-20.0); Bilirubin, Total 0.6 mg/dL (0.2-1.0); Blood Urea Nitrogen 9 mg/dL (9-23); Calcium 9.8 mg/dL (8.5-10.1); Chloride 106 mmol/L (98-107); Potassium 3.9 mmol/L (3.5-5.1); Sodium 136 mmol/L (136-145); Total Protein 7.7 g/dL (5.7-8.2)
[2023-10-08 14:56] LABS: Aspartate Aminotransferase < 8 U/L (13-40)
[2023-10-08 14:57] LABS: Alanine Aminotransferase < 9 U/L (7-40); Carbon Dioxide < 10 mmol/L (20-30); Glucose 494 mg/dL (74-106)
[2023-10-08] MEDS: ALBUTEROL SULF 2.5 MG/0.5ML(0.5%) NEB SOLN NEB ONE (15:03)
[2023-10-08] MEDS: IPRATROPIUM BROM 0.5 MG/2.5ML INH SOL NEB ONE (15:04)
[2023-10-08] MEDS ORDERED: SODIUM CHLORIDE 0.9% 1,000 ML IV ONE (17:15)
[2023-10-08] MEDS ORDERED: DEXTROSE (50%) 50ML SYRG IV PRN ×2 (17:15→21:45)
[2023-10-08 17:42] LABS: Anion Gap 19.00001 (5-15); Chloride 107 mmol/L (98-107); Potassium 3.9 mmol/L (3.5-5.1); Sodium 136 mmol/L (136-145)
[2023-10-08 17:43] LABS: Calcium 9.9 mg/dL (8.7-10.4)
[2023-10-08 17:48] LABS: BUN/Creatinine Ratio 4.2 (10.0-20.0); Blood Urea Nitrogen 7 mg/dL (9-23); Magnesium 2.2 mg/dL (1.6-2.6)
[2023-10-08 17:50] LABS: Phosphorus 3.7 mg/dL (2.4-5.1)
[2023-10-08 18:17] LABS: Carbon Dioxide < 10 mmol/L (20-30); Glucose 535 mg/dL (74-106)
[2023-10-08] MEDS ORDERED: NITROGLYCERIN 0.4 MG SL TAB SL PRN (18:45)
[2023-10-08] MEDS ORDERED: ALBUTEROL SULF 2.5 MG/0.5ML(0.5%) NEB SOLN NEB PRN (18:45)
[2023-10-08] MEDS ORDERED: MORPHINE SULFATE INJ 2 MG/ml SYRG IV PRN (18:45)
[2023-10-08 19:09] LABS: Triglycerides 182 mg/dL (< 150)
[2023-10-08 19:10] LABS: LDL Cholesterol 72 mg/dL (< 100)
[2023-10-08 19:11] LABS: HDL Cholesterol 42 mg/dL (40-59)
[2023-10-08 19:12] LABS: Cholesterol 139 mg/dL (< 200)
[2023-10-08] MEDS: DRONEDARONE HCL 400 MG TAB PO SCH (19:30)
[2023-10-08] MEDS: INSULIN LANTUS (GLARGINE) 1 /0.01ml (100units/ml) SC ONE (19:30)
[2023-10-08] MEDS: INSULIN DRIP 100 UNIT/100ML 100 ML IV SCH ×2 (20:17→23:04)
[2023-10-08] MEDS: SODIUM CHLORIDE 0.9% 1,000 ML IV SCH ×2 (20:17→23:10)
[2023-10-08] MEDS: methylPREDNISolone SOD SUCC 125 MG/2 ML VL IV ONE (20:17)
[2023-10-08] MEDS: POTASSIUM EFFERVESENT TAB 25 MEQ PO ONE (20:22)
[2023-10-08] MEDS: ACCU-CHEK COMFORT CURVE STRIP VI SCH ×2 (20:22→22:45)
[2023-10-08] MEDS: SODIUM CHLORIDE 0.9% 1,000 ML IV ONE (20:52)
[2023-10-08] MEDS: PIPERACILLIN-TAZOB 3.375GM 100 ML IV ONE (20:53)
[2023-10-08 20:56] LABS: Urine Bacteria FEW /hpf (None Seen); Urine Blood Negative /uL (Negative); Urine Clarity Clear (Clear); Urine Color Colorless (Yellow); Urine Mucus FEW (None Seen); Urine Protein, UAD 1+ (Negative); Urine Specific Gravity 1.026 (1.001-1.035); Urine Urobilinogen Normal (Negative); Urine WBC 18 /hpf (0 - 5); Urine pH 5.5 (5.0-8.0)
[2023-10-08] MEDS ORDERED: SODIUM CHLORIDE 0.9% 1,000 ML IV SCH ×2 (21:15→23:15)
[2023-10-08] MEDS ORDERED: INSULIN DRIP 100 UNIT/100ML 100 ML IV SCH (21:45)
[2023-10-08] MEDS ORDERED: PIPERACILLIN-TAZOB 3.375GM 100 ML IV SCH (22:00)
[2023-10-08] MEDS: methylPREDNISolone SOD SUCC 40 MG/ML VL IV SCH (22:00)
[2023-10-08] MEDS: GABAPENTIN 300 MG CAP PO SCH (22:00)
[2023-10-08 22:09] VITALS: PULSE 103; RESP 15; O2SAT 100
[2023-10-08] MEDS: ALBUTEROL SULF 2.5 MG/0.5ML(0.5%) NEB SOLN NEB SCH (22:09)
[2023-10-08] MEDS: IPRATROPIUM BROM 0.5 MG/2.5ML INH SOL NEB SCH (22:09)
[2023-10-08 22:19] VITALS: PULSE 106; RESP 19; O2SAT 100
[2023-10-08] MEDS: APIXABAN 5 MG TAB PO SCH (22:23)
[2023-10-08] MEDS: traMADol HCL 50 MG TAB PO SCH (22:23)
[2023-10-08] MEDS: METOPROLOL TARTRATE 25 MG TAB PO SCH (22:24)
[2023-10-08 22:53] VITALS: BP 123/77; PULSE 106; RESP 15; TEMP 98.9; O2SAT 100
[2023-10-08 22:56] LABS: Basophils # (auto) 0 10 ^3/uL (0-0.2); Eosinophils # (auto) 0 10 ^3/uL (0-0.8); Lymphocytes # (auto) 0.9 10 ^3/uL (0.4-5.4); Mean Corpuscular Hemoglobin 25.7 pg (28.0-32.0)
[2023-10-08 22:58] LABS: Basophils % (auto) 0.3 % (0.0-2.0); Hematocrit 42.1 % (36.0-46.0); Hemoglobin 12.9 g/dL (12.2-16.2); Lymphocytes % (auto) 6.4 % (10.0-50.0); Mean Corpuscular Hgb Conc. 30.7 g/dL (32.0-36.0); Mean Corpuscular Volume 83.7 fL (80.0-100.0); Monocytes # (auto) 0.9 10 ^3/uL (0-1.3); Monocytes % (auto) 6.5 % (0.0-12.0); Neutrophils # (auto) 12.3 10 ^3/uL (1.6-8.6); Neutrophils % (auto) 86.8 % (37.0-80.0); Nucleated Red Blood Cells % 0.1 %; Red Blood Cells 5.02 10^6/uL (4.0-5.20); Red Cell Distribution Width 18.5 % (11.8-14.3); White Blood Cell 14.2 10^3/uL (4.4-10.8)
[2023-10-08 23:21] LABS: Albumin 3.3 g/dL (3.2-4.8); Alkaline Phosphatase 100 U/L (46-116); Anion Gap 16.00001 (5-15); Aspartate Aminotransferase < 8 U/L (13-40); BUN/Creatinine Ratio 7.4 (10.0-20.0); Blood Urea Nitrogen 11 mg/dL (9-23); Calcium 7.7 mg/dL (8.7-10.4); Chloride 111 mmol/L (98-107); Potassium 4.2 mmol/L (3.5-5.1); Sodium 137 mmol/L (136-145)
[2023-10-08 23:22] LABS: Bilirubin, Total 0.3 mg/dL (0.2-1.0); Total Protein 5.9 g/dL (5.7-8.2)
[2023-10-08 23:25] LABS: Alanine Aminotransferase < 9 U/L (7-40)
[2023-10-08 23:26] LABS: Carbon Dioxide < 10 mmol/L (20-30); Glucose 608 mg/dL (74-106)
[2023-10-09] VITALS (12 sets, daily range): BP systolic 95–102; BP diastolic 49–64; PULSE 72–89; RESP 12–100; TEMP 97.6–99.6; O2SAT 15–100
[2023-10-09 00:39] LABS: Chloride 110 mmol/L (98-107); Potassium 5.2 mmol/L (3.5-5.1); Sodium 136 mmol/L (136-145)
[2023-10-09 00:40] LABS: Anion Gap 16.00001 (5-15); Calcium 8.8 mg/dL (8.7-10.4)
[2023-10-09 00:45] LABS: Blood Urea Nitrogen 10 mg/dL (9-23)
[2023-10-09 00:46] LABS: Carbon Dioxide < 10 mmol/L (20-30)
[2023-10-09 00:47] LABS: Glucose 580 mg/dL (74-106)
[2023-10-09] MEDS: SODIUM BICARB 8.4% 50Meq/50ml SYR Vial IV ONE (01:14)
[2023-10-09 07:12] LABS: Basophils # (auto) 0 10 ^3/uL (0-0.2); Basophils % (auto) 0.3 % (0.0-2.0); Eosinophils # (auto) 0 10 ^3/uL (0-0.8); Hematocrit 43.7 % (36.0-46.0); Lymphocytes # (auto) 0.9 10 ^3/uL (0.4-5.4); Lymphocytes % (auto) 6.2 % (10.0-50.0); Mean Corpuscular Hemoglobin 25.8 pg (28.0-32.0); Mean Corpuscular Hgb Conc. 32.1 g/dL (32.0-36.0); Mean Corpuscular Volume 80.4 fL (80.0-100.0); Monocytes # (auto) 0.2 10 ^3/uL (0-1.3); Monocytes % (auto) 1.4 % (0.0-12.0); Neutrophils # (auto) 13.3 10 ^3/uL (1.6-8.6); Neutrophils % (auto) 92.1 % (37.0-80.0); Red Blood Cells 5.43 10^6/uL (4.0-5.20); Red Cell Distribution Width 17.5 % (11.8-14.3); White Blood Cell 14.4 10^3/uL (4.4-10.8)
[2023-10-09 07:20] LABS: Albumin 3.9 g/dL (3.2-4.8); Alkaline Phosphatase 103 U/L (46-116); Anion Gap 19.00001 (5-15); Aspartate Aminotransferase < 8 U/L (13-40); Bilirubin, Total 0.4 mg/dL (0.2-1.0); Blood Urea Nitrogen 12 mg/dL (9-23); Chloride 113 mmol/L (98-107); Glucose 196 mg/dL (74-106); Sodium 142 mmol/L (136-145); Total Protein 6.9 g/dL (5.7-8.2)
[2023-10-09 07:22] LABS: Alanine Aminotransferase < 9 U/L (7-40); Potassium 3.2 mmol/L (3.5-5.1)
[2023-10-09 07:26] LABS: Carbon Dioxide < 10 mmol/L (20-30)
[2023-10-09] MEDS: CHOLECALCIFEROL (VITD3) 1,000UNIT=25mCg TAB PO SCH (09:47)
[2023-10-09] MEDS: ATORVASTATIN 20 MG TAB PO SCH (09:48)
[2023-10-09] MEDS: MONTELUKAST SODIUM 10 MG TAB PO SCH (09:49)
[2023-10-09] MEDS: PANTOPRAZOLE 40 MG TAB PO SCH (09:49)
[2023-10-09] MEDS: hydroCHLOROthiazide 25 MG TAB PO SCH (09:49)
[2023-10-09] MEDS: MAGNESIUM OXIDE 400 MG TAB PO SCH (09:50)
[2023-10-09] MEDS: amLODIPine BESYLATE 5 MG TAB PO SCH (09:50)
[2023-10-09] MEDS: PIPERACILLIN-TAZOB 3.375GM 100 ML IV SCH (09:50)
[2023-10-09] MEDS: INSULIN LANTUS (GLARGINE) 1 /0.01ml (100units/ml) SC SCH (10:00)
[2023-10-09] MEDS: D5W/SOD CHL 0.45%/KCL 40MEQ 1,000 ML IV SCH (10:45)
[2023-10-09] MEDS: IPRATROPIUM BROM 0.5 MG/2.5ML INH SOL NEB SCH (12:00)
[2023-10-09] MEDS: ALBUTEROL SULF 2.5 MG/0.5ML(0.5%) NEB SOLN NEB SCH (12:00)
[2023-10-09] MEDS: cefTRIAXone 1GM/50ML D5W 50 ML IV SCH (12:05)
[2023-10-09 12:39] LABS: Erythrocyte Sedimentation Rate 28 mm/hr (0-20)
[2023-10-09 12:46] LABS: Chloride 114 mmol/L (98-107); Potassium 3.1 mmol/L (3.5-5.1); Sodium 143 mmol/L (136-145)
[2023-10-09 12:47] LABS: Anion Gap 14 (5-15); Calcium 9.3 mg/dL (8.5-10.1); Carbon Dioxide 15 mmol/L (20-30)
[2023-10-09 12:52] LABS: BUN/Creatinine Ratio 8.5 (10.0-20.0); Blood Urea Nitrogen 11 mg/dL (9-23); Glucose 123 mg/dL (74-106)
[2023-10-09] MEDS ORDERED: DEXTROSE (50%) 50ML SYRG IV PRN (13:45)
[2023-10-09] MEDS: POTASSIUM CHLORIDE 40 MEQ in SOD CHL 0.45% 1,000 ML IV SCH (13:45)
[2023-10-09] MEDS: POTASSIUM EFFERVESENT TAB 25 MEQ PO ONE (13:58)
[2023-10-09] MEDS: ACCU-CHEK COMFORT CURVE STRIP VI SCH (16:00)
[2023-10-09] MEDS: InsuLIN REG 1unit/0.01ml Soln (100units/ml) SC SCH (16:00)
[2023-10-09] MEDS: INSULIN LANTUS (GLARGINE) 1 /0.01ml (100units/ml) SC ONE (16:30)
[2023-10-09 18:07] LABS: Chloride 115 mmol/L (98-107); Potassium 3.3 mmol/L (3.5-5.1); Sodium 144 mmol/L (136-145)
[2023-10-09 18:08] LABS: Anion Gap 13 (5-15); Calcium 9.5 mg/dL (8.5-10.1); Carbon Dioxide 16 mmol/L (20-30)
[2023-10-09 18:13] LABS: BUN/Creatinine Ratio 7.8 (10.0-20.0); Blood Urea Nitrogen 9 mg/dL (9-23); Glucose 73 mg/dL (74-106)
[2023-10-09] MEDS: ACETAMINOPHEN 325 MG TAB PO PRN (23:57)
[2023-10-10] VITALS (11 sets, daily range): BP systolic 85–114; BP diastolic 46–69; PULSE 60–75; RESP 14–20; TEMP 97.5–99.6; O2SAT 97–100
[2023-10-10 01:25] LABS: Chloride 116 mmol/L (98-107); Potassium 2.9 mmol/L (3.5-5.1); Sodium 143 mmol/L (136-145)
[2023-10-10 01:26] LABS: Anion Gap 7 (5-15); Calcium 9.4 mg/dL (8.7-10.4); Carbon Dioxide 20 mmol/L (20-30)
[2023-10-10 01:31] LABS: BUN/Creatinine Ratio 8.8 (10.0-20.0); Blood Urea Nitrogen 10 mg/dL (9-23); Glucose 113 mg/dL (74-106)
[2023-10-10 05:55] LABS: Basophils # (auto) 0 10 ^3/uL (0-0.2); Eosinophils # (auto) 0 10 ^3/uL (0-0.8); Eosinophils % (auto) 0.3 % (0.0-7.0); Hemoglobin 13.4 g/dL (12.2-16.2); Lymphocytes # (auto) 2.3 10 ^3/uL (0.4-5.4); Neutrophils # (auto) 7.3 10 ^3/uL (1.6-8.6); White Blood Cell 10.7 10^3/uL (4.4-10.8)
[2023-10-10 05:57] LABS: Basophils % (auto) 0.3 % (0.0-2.0); Hematocrit 40.8 % (36.0-46.0); Lymphocytes % (auto) 21.6 % (10.0-50.0); Mean Corpuscular Hemoglobin 25.8 pg (28.0-32.0); Mean Corpuscular Hgb Conc. 32.7 g/dL (32.0-36.0); Mean Corpuscular Volume 78.9 fL (80.0-100.0); Monocytes % (auto) 9.8 % (0.0-12.0); Red Blood Cells 5.17 10^6/uL (4.0-5.20); Red Cell Distribution Width 17.2 % (11.8-14.3)
[2023-10-10 06:00] LABS: Anion Gap 9 (5-15); Carbon Dioxide 19 mmol/L (20-30); Chloride 114 mmol/L (98-107); Potassium 3.2 mmol/L (3.5-5.1); Sodium 142 mmol/L (136-145)
[2023-10-10 06:01] LABS: Calcium 9.3 mg/dL (8.5-10.1)
[2023-10-10 06:06] LABS: BUN/Creatinine Ratio 9.3 (10.0-20.0); Blood Urea Nitrogen 10 mg/dL (9-23); Glucose 155 mg/dL (74-106)
[2023-10-10 13:57] LABS: Chloride 112 mmol/L (98-107); Potassium 3.6 mmol/L (3.5-5.1); Sodium 139 mmol/L (136-145)
[2023-10-10 13:58] LABS: Anion Gap 9 (5-15); Calcium 9.3 mg/dL (8.5-10.1); Carbon Dioxide 18 mmol/L (20-30)
[2023-10-10 14:03] LABS: BUN/Creatinine Ratio 6.8 (10.0-20.0); Blood Urea Nitrogen 9 mg/dL (9-23); Glucose 318 mg/dL (74-106)
[2023-10-10] MEDS ORDERED: DEXTROSE (50%) 50ML SYRG IV PRN ×2 (15:00→19:30)
[2023-10-10] MEDS: ACCU-CHEK COMFORT CURVE STRIP VI SCH ×2 (16:00→20:09)
[2023-10-10] MEDS: InsuLIN REG 1unit/0.01ml Soln (100units/ml) SC SCH ×2 (17:05→20:11)
[2023-10-10] MEDS: POTASSIUM CHLORIDE 8 MEQ TAB PO ONE (17:05)
[2023-10-10] MEDS ORDERED: ONDANSETRON ODT 4 MG TAB PO PRN (18:15)
[2023-10-10 18:40] LABS: Chloride 113 mmol/L (98-107); Potassium 3.3 mmol/L (3.5-5.1)
[2023-10-10 18:41] LABS: Calcium 9.3 mg/dL (8.7-10.4); Carbon Dioxide 17 mmol/L (20-30)
[2023-10-10 18:46] LABS: BUN/Creatinine Ratio 6.7 (10.0-20.0); Blood Urea Nitrogen 9 mg/dL (9-23); Glucose 337 mg/dL (74-106)
[2023-10-10 18:50] LABS: Anion Gap 8 (5-15); Sodium 138 mmol/L (136-145)
[2023-10-10] MEDS ORDERED: ONDANSETRON HCL 4 MG/2 ML VIAL IV PRN (19:30)
[2023-10-10] MEDS: MONTELUKAST SODIUM 10 MG TAB PO SCH (22:08)
[2023-10-10] MEDS: INSULIN LANTUS (GLARGINE) 1 /0.01ml (100units/ml) SC SCH (22:19)
[2023-10-11] VITALS (13 sets, daily range): BP systolic 91–124; BP diastolic 45–74; PULSE 62–98; RESP 14–21; TEMP 97.7–98.2; O2SAT 97–100
[2023-10-11] MEDS ORDERED: DICL1GEL59 TOP (08:31)
[2023-10-11] MEDS ORDERED: METH-1182 PO (08:31)
[2023-10-11] MEDS ORDERED: TIRZ2.5I SC (08:31)
[2023-10-11 08:49] LABS: Chloride 116 mmol/L (98-107); Potassium 3.3 mmol/L (3.5-5.1); Sodium 143 mmol/L (136-145)
[2023-10-11 08:50] LABS: Anion Gap 9 (5-15); Calcium 8.7 mg/dL (8.5-10.1); Carbon Dioxide 18 mmol/L (20-30)
[2023-10-11 08:55] LABS: BUN/Creatinine Ratio 7.9 (10.0-20.0); Blood Urea Nitrogen 8 mg/dL (9-23); Glucose 154 mg/dL (74-106)
[2023-10-11] MEDS: POTASSIUM EFFERVESENT TAB 25 MEQ PO ONE (12:06)
[2023-10-11] MEDS ORDERED: INSLANTI SC (12:58)
[2023-10-11] MEDS ORDERED: INSU50IN6 SC ×2 (12:58→13:02)
[2023-10-11] MEDS: PHENAZOPYRIDINE HCL 100 MG TAB PO SCH (17:34)
[2023-10-11] MEDS: CIPROFLOXACIN HCL 500 MG TAB PO SCH (21:34)
[2023-10-11] MEDS: ATORVASTATIN 20 MG TAB PO SCH (21:34)
[2023-10-12] VITALS (7 sets, daily range): BP systolic 95–114; BP diastolic 44–76; PULSE 72–82; RESP 17–20; TEMP 97.4–98.3; O2SAT 97–100
[2023-10-12] MEDS ORDERED: CIP500T PO (10:08)
[2023-10-12] MEDS ORDERED: PHEN-1045 PO (10:20)
== END 2023-10-12 17:45 | disposition home or self-care (01) | DRG 720 ==
LOC: ER 13:22 → TELE 18:43 → TELE-EAST 10-09 14:56 → EAST 10-09 19:48
PROVIDERS: ADMIT Nurse Practitioner Family; ATTEND Nurse Practitioner Acute Care
DX: A41.9 Sepsis, unspecified organism (principal); N17.0 Acute kidney failure with tubular necrosis; J96.01 Acute respiratory failure with hypoxia; E11.10 Type 2 diabetes mellitus with ketoacidosis without coma; J44.1 Chronic obstructive pulmonary disease with (acute) exacerbation; I10 Essential (primary) hypertension; I48.91 Unspecified atrial fibrillation; N30.91 Cystitis, unspecified with hematuria; E66.01 Morbid (severe) obesity due to excess calories; Z79.01 Long term (current) use of anticoagulants; Z79.84 Long term (current) use of oral hypoglycemic drugs; Z91.199 Patient's noncompliance with other medical treatment and regimen due to unspecified reason; Z80.49 Family history of malignant neoplasm of other genital organs; Z82.3 Family history of stroke; Z82.49 Family history of ischemic heart disease and other diseases of the circulatory system; Z83.3 Family history of diabetes mellitus; Z99.81 Dependence on supplemental oxygen; Z68.42 Body mass index [BMI] 45.0-49.9, adult
CPT/HCPCS: 36415; 36600; 71045; 80048; 80053; 80061; 81001; 82010; 82805; 82962; 83036; 83605; 83735; 83880; 83930; 84100; 84443; 84484; 85025; 85652; 86141; 87040; 87086; 93005; 94640; 99291; G0378; J1815; J2543; Q0162